=== PATIENT | female | born 1935 | race Caucasian/White ===

== ENCOUNTER 2021-06-07 19:08 | Observation (INO) | payer MEDICARE, SELFPAY ==
--- NOTE | ~2021-06-07 | XR_ITS ---
EXAMINATION: XR retrograde pyelo w/stent RT EXAM DATE: 06/08/2021 13:49 INDICATION: Stent placement right-sided. TECHNIQUE: Fluoroscopy used during XR retrograde pyelo w/stent RT performed by Dr. Sarbjit Davis , urologist. The radiologist Tyler Kate M.D. dictating this report of the image(s) available was no t present for the procedure. Total fluoroscopic time of 149 seconds. The DAP for this procedure was 09/11/2008 radcm2. A total of 41 images sent to PACS from the exam. Cine run(s) available for review . FINDINGS: Right ureter was cannulated and injected. There is moderate right-sided hydronephrosis wit h normal calibered ureter. A double-J ureteral stent was placed. Correlate with procedure note. IMPRESSION: Moderate right hydronephrosis. Stent in position. Reviewed, dictated and finalized at location A.
--- NOTE | ~2021-06-07 | CT_ITS ---
EXAMINATION: CT abdomen pelvis w con DATE: 06/07/2021 20:16 INDICATION: Right lower quadrant pain. History of kidney stones. TECHNIQUE: Computed tomography (CT) of the abdomen and pelvis was performed with 100 cc Omnipaque 350 intravenous contrast. The dose-length product was 468.73 mGy-cm. Automated exposure control and iter ative reconstruction technique were employed. COMPARISON: CT dated 06/08/2019 FINDINGS: Lung bases are unremarkable. No significant pleural or pericardial effusion. Heart size nor mal. Moderate size hiatal hernia. Moderate diffuse atherosclerosis. No aneurysm. No lymphadenopathy. Normal appendix. There is a 5 mm proximal right ureteral stone with mild hydronephrosis and urothelia l enhancement proximal to the stone, suspicious for ascending urinary tract infection. There is an ad ditional right renal stone which is nonobstructing measuring 6 mm. Fatty infiltration of the liver. Gallbladder is present. The spleen, pancreas, adrenal glands and lef t kidney are unremarkable. Bowel pattern is nonobstructive. Colonic diverticulosis without evidence f or diverticulitis. No free air or free fluid. Moderate lumbar spondylosis. IMPRESSION: 1. Obstructing proximal right ureteral stone measuring 5 mm at the L3-4 level with urothelial enhance ment proximal to the stone, suspicious for ascending urinary tract infection. 2: Nonobstructing 6 mm right renal stone. 3: Moderate sized hiatal hernia. Reviewed, dictated and finalized at location A. IMPRESSION: 1. Obstructing proximal right ureteral stone measuring 5 mm at the L3-4 level w ith urothelial enhancement proximal to the stone, suspicious for ascending urin mica tract infection. 2: Nonobstructing 6 mm right renal stone. 3: Moderate sized hiatal hernia.
--- NOTE | ~2021-06-07 | XR_ITS ---
EXAMINATION: XR abdomen/kub 1V INDICATION: Right ureteral stone TECHNIQUE: Supine views of the abdomen were obtained on 2 radiographs. COMPARISON: 06/07/2021 FINDINGS: A right internal ureteral stent has been placed in expected position. A 9 mm stone projects adjacent to the proximal aspect of the stent just below the right L4 transverse process. A second 7 mm stone projects in the right mid kidney. No additional urolithiasis is identified. The bowel gas pa ttern is normal. There is moderate osteoarthritis of the hips. The visualized lung bases are clear. IMPRESSION: 1. Right internal ureteral stent in expected position with 9 mm stone adjacent to the proximal stent. 2. 7 mm stone in the right kidney. Reviewed, dictated and finalized at location B.
--- NOTE | ~2021-06-07 | XR_ITS ---
EXAMINATION: XR abdomen/kub 1V DATE: 06/07/2021 21:47 INDICATION: Ureterolithiasis with lower right abdominal pain TECHNIQUE: A supine view of the abdomen on 2 radiographs was obtained. COMPARISON: CT dated 06/07/2021 FINDINGS: Excreted contrast is seen in the bilateral renal collecting systems and in the bladder from the recen t prior contrast enhanced CT of the abdomen and pelvis. There is mild right hydronephrosis with trans ition point at the proximal right ureter where an obstructing stone was seen on the prior CT. The sto ne is obscured by the adjacent contrast. Normal bowel gas pattern with moderate amount of colonic sto ol and no dilated bowel to suggest obstruction. Visualized mid to lower lungs are clear. Heart size i s within normal limits for AP technique. Moderate lower lumbar spondylosis. IMPRESSION: 1. Mild right hydronephrosis with transition point at the previously noted obstructing proximal right ureteral stone. Reviewed, dictated and finalized at location A. IMPRESSION: 1. Mild right hydronephrosis with transition point at the previously noted obst ructing proximal right ureteral stone.
[2021-06-07 19:10] VITALS: BP 169/72; PULSE 82; RESP 16; TEMP 36.3; O2SAT 98
--- NOTE | 2021-06-07 19:32 | ED.ABDPAIN ---
HPI - Abdominal Pain General Chief Complaint: Abdominal Pain Stated Complaint: right lower abdominal pain Time Seen by Provider: 06/07/21 19:23 Source: patient Mode of arrival: ambulatory Limitations: no limitations History of Present Illness HPI narrative: This is an 85-year-old female that presents to the emergency department for right-sided mid abdominal pain that started yesterday. Reports she experience the pain last night, but it had resolved before she went to sleep. Pain started again this afternoon. It has been constant and achy. Denies fever, nausea, vomiting, diarrhea, hematochezia, dysuria, hematuria. Related Data Home Medications Medication Instructions Recorded Confirmed Complete Multi 50+ 1 tablet PO DAILY 06/08/19 06/08/19 amlodipine 5 mg PO DAILY 06/08/19 06/08/19 ascorbic acid (vitamin C) [Vitamin 250 mg PO DAILY 06/08/19 06/08/19 C] aspirin 81 mg PO DAILY 06/08/19 06/08/19 calcium carbonate [Calcium 500] 500 mg PO DAILY 06/08/19 06/08/19 cholecalciferol (vitamin D3) 2,000 unit PO DAILY 06/08/19 06/08/19 [Vitamin D3] levothyroxine 50 mcg PO DAILY 06/08/19 06/08/19 losartan 100 mg PO DAILY 06/08/19 06/08/19 omeprazole 20 mg PO BID 06/08/19 06/08/19 simvastatin 20 mg PO HS 06/08/19 06/08/19 Allergies Allergy/AdvReac Type Severity Reaction Status Date / Time Sulfa (Sulfonamide Allergy Unknown Vomiting Verified 06/07/21 19:16 Antibiotics) Review of Systems Review of Systems: CONSTITUTIONAL: Denies fever GASTROINTESTINAL: Reports abdominal pain. Denies nausea, vomiting, or diarrhea. GENITOURINARY: Denies dysuria or hematuria. All systems reviewed & are unremarkable except as noted in HPI and below PMFSH Past Medical History Medical History (Updated 06/07/21 @ 22:05 by Ashley Winston PA-C) GERD (gastroesophageal reflux disease) Hyperlipidemia Hypertension Hypothyroid Surgical History Surgical History H/O colonoscopy History of thyroidectomy Family History Family History Sibling Hypertension Family history of diabetes mellitus in first degree relative Family history of coronary artery disease Mother Family history of congenital heart disease, Onset Age: 84 Patient's mother is Social History Social History (Updated 06/07/21 @ 19:35 by Ashley Winston PA-C) Smoking packs per day: 1 Smoking cigarettes per day: 20.0 Smoking status: Former smoker Second hand tobacco smoke exposure: No Alcohol intake: never Substance use: never Gender identity (if verbalized by the patient): Female Spiritual care concerns: No Agree to blood products: Yes Exam Narrative: GENERAL: Well-appearing, well-nourished, and in no acute distress. HEAD: Normocephalic, atraumatic. EYES: EOMI. CHEST: Clear to auscultation. No respiratory distress. No wheezes rales or rhonchi HEART: Regular rate and rhythm. No murmur heard. Normal peripheral pulses. ABDOMEN: Soft, nondistended, normal active bowel sounds. Tender to palpation in the right mid abdomen, without guarding. No CVA tenderness EXTREMITIES: Normal range of motion. No edema. SKIN: Warm, dry, no rash. NEURO: No focal deficits. Alert and oriented x3. PSYCH: Normal mood and affect Course Consultations Consultation #1: Spoke with Dr. Lemus about patient and workup. Recommends admission for further evaluation and treatment. Patient will be made NPO at midnight for likely procedure tomorrow Date: 06/07/21 Time: 21:08 Consultation #2: Spoke with Dr. Morales about patient and workup who accepts admission Date: 06/07/21 Time: 22:00 Vital Signs Vital signs: Vital Signs Temperature 97.4 F L 06/07/21 19:10 Pulse Rate 82 06/07/21 19:10 Respiratory Rate 16 06/07/21 19:10 Blood Pressure 169/72 H 06/07/21 19:10 Pulse Oximetry 98 06/07/21 19:10 Temperature 97.4 F L 06/07/21 19:
[2021-06-07 19:37] LABS: Basophils Absolute Auto 0.1 K/mm3 (0.0-0.1); Basophils Percent Auto 0.7 % (0.2-1.2); Eosinophils Absolute Auto 0.2 K/mm3 (0-0.3); Eosinophils Percent Auto 1.8 % (0-4.4); Hematocrit 42.2 % (37.0-47.0); Hemoglobin 14.6 g/dL (12.0-15.0); Immature Granulocyte Absolute 0.03 K/mm3 (0.00-0.031); Immature Granulocyte Percent A 0.3 % (0-0.5); Lymphocytes Absolute Auto 3.95 K/mm3 (0.9-3.2); Mean Corpuscular HGB Conc 34.6 g/dl (32-36); Mean Corpuscular Hemoglobin 31.3 pg (26-34); Mean Corpuscular Volume 90.6 fl (80-100); Mean Platelet Volume 10.7 fl (7.4-10.4); Monocytes Absolute Auto 1.3 K/mm3 (0.1-0.6); Monocytes Percent Auto 11.4 % (2.6-8.5); Neutrophils Absolute Auto 5.8 K/mm3 (1.3-6.7); Neutrophils Percent Auto 50.8 % (45.5-73.1); Platelet Count Result 227 k/mm3 (150-375); Red Blood Count 4.66 M/mm3 (4.2-5.4); Red Cell Distribution Width 13.5 % (11.5-14.5); White Blood Count 11.3 K/mm3 (4.5-10.0)
[2021-06-07 19:54] LABS: Alanine Aminotransferase 22 U/L (4-35); Albumin Level 4.8 g/dL (3.5-5.1); Alkaline Phosphatase 70 U/L (38-126); Anion Gap 15 mmol/L (8-16); Aspartate Amino Transferase 25 U/L (14-36); Bilirubin,Total 0.6 mg/dL (0.2-1.3); Blood Urea Nitrogen 21 mg/dL (7-17); Carbon Dioxide 22 mmol/L (22-30); Chloride 103 mmol/L (98-107); Estimated CRCL calculation 35 ml/min; Estimated Glomerular Filt Rate 53; Glucose 136 mg/dL (65-110); Lipase 154 U/L (23-300); Potassium 3.9 mmol/L (3.4-5.0); Sodium 140 mmol/L (137-145)
[2021-06-07] MEDS: SODIUM CHLORIDE 0.9% IV 500 ML 999 ML IV CONT ×2 (20:27→21:47)
[2021-06-07] MEDS: ONDANSETRON INJ 4 MG/2 ML VIAL IV PUSH (20:27)
[2021-06-07] MEDS: MORPHINE SULFATE (*CRX) 2 MG/ML INJ IV PUSH (20:28)
[2021-06-07 20:40] LABS: Add Urine Microscopic? YES; Appearance Urine Clear (Clear); Bilirubin Urine Negative (Negative); Color Urine Yellow (Yellow); Glucose Urine UA Negative (Negative); Ketones Urine Negative (Negative); Leukocyte Esterase Ur 1+ LEU/UL (Negative); Mucus Urine Rare /lpf; Nitrate Urine Negative (Negative); Protein Urine Negative (Negative); RBC Urine 21-50 /hpf (0-2); Squamous Epithelial Cell Urine Rare /hpf (Few); Urobilinogen Urine Negative mg/dL (<2.0); WBC Urine 16-20 /hpf
[2021-06-07 20:41] LABS: Blood Urine Negative (Negative)
[2021-06-07 21:07] LABS: CRP < 0.5 mg/dL (<1.0)
--- NOTE | 2021-06-07 21:30 | PM.IMHP ---
H&P: HPI History of Present Illness Date/Time: 06/07/21 21:30 Chief Complaint: Right flank pain Narrative: This is an 85-year-old female with past medical history significant for urolithiasis, gastric esophageal reflux disease, dyslipidemia, hypertension. Patient presented to the emergency room due to flank pain for the last day or so, she denies any pain or burning with urination, no fevers,no rigors, no chills, no nausea ,no vomiting, no diarrhea ,no abdominal distension, no cough ,no sputum production, no shortness of breath. States that her appetite has been good. Pain is localized to the right side she rates it at a 3/10 at the time of my visit in intensity, is nonradiating initially started at the back and later on localized to the front, she received pain medication in the emergency room which helped with the pain. Preliminary workup was significant for urinalysis with numerous RBCs and WBCs a CT of abdomen and pelvis was significant for obstructing proximal right ureteral stone measuring 5 mm at the L3-4 level with urothelial enhancement proximal to the stone, suspicious for ascending urinary tract infection,nonobstructing 6 mm right renal stone,moderate sized hiatal hernia. Decision has been made to place the patient in observation for further assessment management and treatment. Review of Systems Review of Systems: Right flank pain Constitutional: Constitutional: Denies chills, Denies fatigue, Denies fever(s), Denies malaise, Denies night sweats, Denies poor appetite and Denies weakness Eyes: Eyes: Denies change in vision ENT: Denies dysphagia, Denies vertigo, Denies dizziness, Denies nasal congestion, Denies nasal discharge, Denies nasal obstruction and Denies odynophagia Cardiovascular: Cardiovascular: Denies irregular heart rhythm, Denies lightheadedness, Denies radiating jaw, neck or arm pain, Denies palpitations, Denies dyspnea, Denies dyspnea on exertion and Denies orthopnea Respiratory: Respiratory: Denies cough and Denies dyspnea Gastrointestinal: Gastrointestinal: Reports abdominal pain (Right flank), Denies dyspepsia, Denies heartburn, Denies nausea and Denies vomiting Genitourinary: Genitourinary: Reports flank pain (Right-sided) Musculoskeletal: Musculoskeletal: Denies arthralgias and Denies joint swelling Integumentary/Breasts: Skin/Breast: Denies rash Neurologic: Denies vertigo, Denies dizziness, Denies syncope, Denies focal weakness and Denies Sensory deficit (Neuro) Psychiatric: Psychiatric: Reports no additional psychiatric complaints and Reports as per HPI Endocrine: Endocrine: Reports no additional endocrine complaints and Reports as per HPI Hematologic/Lymphatic: Hematologic/Lymphatic: Reports no additional hematologic/lymphatic complaints and Reports as per HPI Allergic/Immunologic: Allergic/Immunologic: Reports no additional allergic/immunologic complaints and Reports as per HPI [facility] Past Medical History Medical History (Updated 06/08/21 @ 02:28 by Dionte Morales MD) GERD (gastroesophageal reflux disease) Hyperlipidemia Hypertension Hypothyroid Surgical History Surgical History H/O colonoscopy History of thyroidectomy Family History Family History Sibling Hypertension Family history of diabetes mellitus in first degree relative Family history of coronary artery disease Mother Family history of congenital heart disease, Onset Age: 84 Patient's mother is Social History Social History (Updated 06/07/21 @ 19:35 by Ashley Winston PA-C) Smoking packs per day: 1 Smoking cigarettes per day: 20.0 Smoking status: Former smoker Second hand tobacco smoke exposure: No Alcohol intake: never Substance use: never Gender identity (if verbalized by the patient): Female Spiritual care concerns: No Agree to blood products: Yes Meds
[2021-06-07 21:40] VITALS: BP 152/57; PULSE 68; RESP 16; O2SAT 98
[2021-06-07 23:06] VITALS: BP 157/56; PULSE 67; RESP 16; O2SAT 96
[2021-06-07 23:10] VITALS: BP 164/65; PULSE 66; RESP 16; TEMP 36.8; O2SAT 99; BMI 26.4
--- NOTE | 2021-06-07 23:41 | PC.NURSE ---
This patient, Charla Fraire, was admitted to Medical Room 348-01. Patient/family oriented to hospital policies and general routines including ID bracelet, bed and alarms, visiting hours, pain management, procedures, bathroom and other care routines, personal items, smoking policy, room service/diet, and visiting hours. Information on how to activate the Rapid Response Team has been discussed. Patient/Family are encouraged to report perceived risks to care and to ask questions if they do not understand what they are told or what they should do.
[2021-06-08] VITALS (9 sets, daily range): BP systolic 140–163; BP diastolic 46–65; PULSE 63–70; RESP 14–18; TEMP 35.7–37.1; O2SAT 92–99
[2021-06-08] MEDS: LEVOTHYROXINE SODIUM 50 MCG TABLET PO (05:59)
--- NOTE | 2021-06-08 06:14 | WPDURCON ---
Assessment and Plan Assessment and plan (1) Ureterolithiasis: Code(s): N20.1 - Calculus of ureter Status: Acute (2) Urinary tract infection: Qualifiers: Urinary tract infection type: acute pyelonephritis Qualified Code(s): N10 - Acute pyelonephritis Code(s): N39.0 - Urinary tract infection, site not specified Status: Acute Assessment and Plan: Cystoscopy right ureteral stent placement today. ESWL in the future Urology Consult Note HPI Date Seen: 06/08/21 Requesting Physician: Dionte Morales MD Primary Care Provider: PHYSICIAN NOT ON STAFF Consult Narrative Narrative: Charla Fraire is a 85 year old female presents to the ER with a 24-36 hour history of right flank pain. This turns out to be this patient's 4th episode of urolithiasis. In the past she has passed 1 spontaneously, required endoscopic extraction of 1 and required lithotripsy of 1. On this occasion she denies fevers chills or significant ureteral voiding but her urine does appear possibly infected. Imaging reveals a 5 mm obstructing right mid ureteral calculus and a 6 mm nonobstructing right renal calculus. Review of Systems Cardiovascular: Cardiovascular: Denies chest pain, Denies lightheadedness, Denies palpitations and Denies dyspnea Respiratory: Respiratory: Denies dyspnea Gastrointestinal: Gastrointestinal: Denies diarrhea, Denies nausea and Denies vomiting Genitourinary: Genitourinary: Denies hematuria and Denies dysuria Endocrine: Endocrine: Denies palpitations PMFSH Past Medical History Medical History GERD (gastroesophageal reflux disease) Hyperlipidemia Hypertension Hypothyroid Surgical History Surgical History H/O colonoscopy History of thyroidectomy Family History Family History Sibling Hypertension Family history of diabetes mellitus in first degree relative Family history of coronary artery disease Mother Family history of congenital heart disease, Onset Age: 84 Patient's mother is Social History Social History Smoking packs per day: 1 Smoking cigarettes per day: 20.0 Smoking status: Former smoker Second hand tobacco smoke exposure: No Alcohol intake: never Substance use: never Gender identity (if verbalized by the patient): Female Spiritual care concerns: No Agree to blood products: Yes Meds Home Medications and Allergies Home Medications Medication Instructions Recorded Confirmed Type Complete Multi 50+ 1 tablet PO DAILY 06/08/19 06/07/21 History amlodipine 5 mg PO DAILY 06/08/19 06/07/21 History aspirin 81 mg PO DAILY 06/08/19 06/07/21 History calcium carbonate [Calcium 500] 500 mg PO DAILY 06/08/19 06/07/21 History levothyroxine 50 mcg PO DAILY 06/08/19 06/07/21 History losartan 100 mg PO DAILY 06/08/19 06/07/21 History omeprazole 20 mg PO BID 06/08/19 06/07/21 History simvastatin 20 mg PO HS 06/08/19 06/07/21 History meloxicam 15 mg PO DAILY 06/07/21 06/07/21 History Allergies Allergy/AdvReac Type Severity Reaction Status Date / Time Sulfa (Sulfonamide Allergy Unknown Vomiting Verified 06/07/21 19:16 Antibiotics) Vital Signs Vital Signs - 24 hr 06/07/21 19:10 06/07/21 21:40 06/07/21 23:06 Temperature 97.4 F L Pulse Rate 82 68 67 Respiratory Rate 16 16 16 Blood Pressure 169/72 H 152/57 H 157/56 H Pulse Oximetry 98 98 96 06/07/21 23:10 06/08/21 06:00 Temperature 98.3 F 98.8 F Pulse Rate 66 69 Respiratory Rate 16 16 Blood Pressure 164/65 H 144/52 H Pulse Oximetry 99 99 Exam Const: General: no acute distress Resp: Effort & Inspection: normal respiratory effort GI: Inspection: non-distended GI Palp: No abdominal tenderness and No Guarding due to palpati
[2021-06-08] MEDS: PANTOPRAZOLE 40 MG TABLET PO (09:29)
[2021-06-08] MEDS: amLODIPine BESYLATE 5 MG TABLET PO (09:29)
[2021-06-08] MEDS: OPTI-GEN TAB 1 TABLET PO (09:29)
[2021-06-08] MEDS: LOSARTAN POTASSIUM 100 MG TABLET PO (09:29)
[2021-06-08] MEDS: CALCIUM CARBONATE (OSCAL) 500 MG TABLET PO (09:30)
--- NOTE | 2021-06-08 11:13 | PC.NURSE ---
To OR per bed, IV right wrist. Report given to Peter WHARTON.
--- NOTE | 2021-06-08 12:40 | WPDANESEPPF ---
Anes - Initial Pre Proc Eval Procedure: Operation Date: 06/08/21 12:30 Proposed Procedures p Cystoscopy,Rigth Stent Placement - Sarbjit Davis MD Date/Time: 06/08/21 12:40 Surgeon: Renae Holguin PA-C Pre Op Diagnosis: Ureterolithiasis, Urinary Tract Infection Patient Data Age: 85 Gender: F Height: 1.68 m Weight: 74.4 kg Last Vital Signs Temp 36.3 C L 06/08/21 11:42 Pulse 63 06/08/21 11:42 Resp 14 06/08/21 11:42 BP 143/46 H 06/08/21 11:42 Pulse Ox 99 06/08/21 11:42 Allergies Allergy/AdvReac Type Severity Reaction Status Date / Time Sulfa (Sulfonamide Allergy Unknown Vomiting Verified 06/07/21 19:16 Antibiotics) Home Medications Medication Instructions Recorded Confirmed Type Complete Multi 50+ 1 tablet PO DAILY 06/08/19 06/07/21 History amlodipine 5 mg PO DAILY 06/08/19 06/07/21 History aspirin 81 mg PO DAILY 06/08/19 06/07/21 History calcium carbonate [Calcium 500] 500 mg PO DAILY 06/08/19 06/07/21 History levothyroxine 50 mcg PO DAILY 06/08/19 06/07/21 History losartan 100 mg PO DAILY 06/08/19 06/07/21 History omeprazole 20 mg PO BID 06/08/19 06/07/21 History simvastatin 20 mg PO HS 06/08/19 06/07/21 History meloxicam 15 mg PO DAILY 06/07/21 06/07/21 History Laboratory Tests 06/07/21 06/07/21 06/07/21 19:33 19:33 20:24 WBC 11.3 K/mm3 H K/mm3 (4.5-10.0) RBC 4.66 M/mm3 M/mm3 (4.2-5.4) Hgb 14.6 g/dL g/dL (12.0-15.0) Hct 42.2 % % (37.0-47.0) MCV 90.6 fl fl (80-100) MCH 31.3 pg pg (26-34) MCHC 34.6 g/dl g/dl (32-36) RDW 13.5 % % (11.5-14.5) Plt Count 227 k/mm3 k/mm3 (150-375) MPV 10.7 fl H fl (7.4-10.4) Immature Gran % (Auto) 0.3 % % (0-0.5) Neut % (Auto) 50.8 % % (45.5-73.1) Lymph % (Auto) 35.0 % % (18.3-44.2) [place] % (Auto) 11.4 % H % (2.6-8.5) Eos % (Auto) 1.8 % % (0-4.4) Baso % (Auto) 0.7 % % (0.2-1.2) Lymph # (Auto) 3.95 K/mm3 H K/mm3 (0.9-3.2) [place] # (Auto) 1.3 K/mm3 H K/mm3 (0.1-0.6) Eos # (Auto) 0.2 K/mm3 K/mm3 (0-0.3) Baso # (Auto) 0.1 K/mm3 K/mm3 (0.0-0.1) Abs Immat Gran (auto) 0.03 K/mm3 K/mm3 (0.00-0.031) Absolute Neuts (auto) 5.8 K/mm3 K/mm3 (1.3-6.7) Absolute Nucleated RBC 0.0 K/mm3 K/mm3 (0.0-0.012) Nucleated RBC % 0.0 % % (0.0-0.2) Sodium 140 mmol/L mmol/L (137-145) Potassium 3.9 mmol/L mmol/L (3.4-5.0) Chloride 103 mmol/L mmol/L (98-107) Carbon Dioxide 22 mmol/L mmol/L (22-30) Anion Gap 15 mmol/L mmol/L (8-16) BUN 21 mg/dL H D mg/dL (7-17) Creatinine 1.00 mg/dL mg/dL (0.7-1.0) Estim Creat Clear Calc 35 ml/min ml/min Estimated GFR 53 L (59 - ) Glucose 136 mg/dL H mg/dL (65-110) Lactic Acid Calcium 10.0 mg/dL mg/dL (8.4-10.2) Total Bilirubin 0.6 mg/dL mg/dL (0.2-1.3) AST 25 U/L U/L (14-36) ALT 22 U/L U/L (4-35) Alkaline Phosphatase 70 U/L U/L (38-126) C-Reactive Protein Total Protein 8.0 g/dL g/dL (6.3-8.2) Albumin 4.8 g/dL g/dL (3.5-5.1) Lipase 154 U/L U/L (23-300) Urine Color Yellow (Yellow) Urine Appearance Clear (Clear) Urine pH 6.0 (5.0-9.0) Ur Specific [place] 1.020 (1.001-1.035) Urine Protein Negative mg/dL mg/dL (Negative) Urine Glucose (UA) Negative mg/dL mg/dL (Negative) Urine Ketones Negative mg/dL mg/dL (Negative) Ur Blood (Man) Negative (Negative) Urine Nitrate Negative (Negative) Urine Bilirubin Negative (Negative) Urine Urobilinogen Negative mg/dL mg/dL (<2.0) Leukocyte Esterase Rfl 1+
[2021-06-08] MEDS: LACTATED RINGERS 1,000 ML 30 ML IV CONT (13:00)
--- NOTE | 2021-06-08 13:01 | WPDHPUPDATE1 ---
History and Physical Update Update Date/Time: 06/08/21 13:01 History and Physical has been reviewed, including an updated exam of the patient. There are NO changes in the patient's condition. Risks, benefits, and alternatives have been discussed and questions answered. Patient agrees to proceed with procedure.
--- NOTE | 2021-06-08 13:46 | W.PM.PROC2 ---
Procedure Note - Detailed Date of Procedure 06/08/21 Pre-op Diagnosis Ureterolithiasis, Urinary Tract Infection Post-op Diagnosis same Procedure Performed Cystoscopy, right retrograde pyelography, right ureteral stent placement Surgeon Sarbjit Davis MD Anesthesia general Description of Procedure Patient is brought to the operative suite where she was prepped draped in routine sterile fashion while in dorsal lithotomy position after the uneventful induction of a general anesthetic. Cystoscopy is undertaken with a 19 F rigid cystoscope. Bladder neck and urethra endoscopically normal. Bladder mucosa is normal without hyperemia. There was no intravesical foreign body or neoplasm. She has a single orthotopic ureteral orifice bilaterally. Right retrograde pyelogram was obtained with an angiographic catheter to outline the anatomy the collecting system. A 4.8 F double-J ureteral stent is positioned with the proximal coil in the renal pelvis and distal coil in the bladder. Urine Output 350 Drains Yes Packing No Pathology none sent Complications No immediate complications Condition stable Disposition PACU
--- NOTE | 2021-06-08 14:47 | PC.NURSE ---
Returned from OR per Bed. Report received from Stacie .
--- NOTE | 2021-06-08 15:16 | PM.IMPN ---
Progress Note: A&P Assessment and Plan (1) Acute right flank pain: Code(s): R10.9 - Unspecified abdominal pain Status: Acute Assessment and Plan: CT showed kidney stone Urology evaluated and taking for Cysto and stent placement Pending testing and input from Urology. Stable at this time. (2) Ureterolithiasis: Code(s): N20.1 - Calculus of ureter Status: Acute Assessment and Plan: Urology has been consulted Currently receiving IV fluids (3) Urinary tract infection: Qualifiers: Urinary tract infection type: acute pyelonephritis Qualified Code(s): N10 - Acute pyelonephritis Code(s): N39.0 - Urinary tract infection, site not specified Status: Acute Assessment and Plan: Patient was started on antibiotics Rocephin #1 Await cultures (4) Hypertension: Code(s): I10 - Essential (primary) hypertension Status: Chronic Assessment and Plan: BP slightly elevated 144/52. Continue home meds Continue to monitor (5) Hyperlipidemia: Code(s): E78.5 - Hyperlipidemia, unspecified Status: Chronic Assessment and Plan: Continue statin Follow-up in outpatient setting Time Spent With Patient Time with patient: 25 - 35 minutes Subjective Date/time seen: 06/08/21 15:16 Interval history: Date of Service 06/08/21: She denies any pain at this time, just intermittent to left side. Denies urinary complaints, chest pain, SOB, cough, fever, chills, nausea, vomiting, leg swelling, calf pain or any other symptoms at this time. Review of Systems Review of Systems: All systems reviewed & are unremarkable except as noted in HPI and below Exam Narrative: General: 85-year-old woman sitting up in bed watching TV. Appears comfortable. In no acute distress. Skin: No jaundice or cyanosis. Good skin turgor. Neck: Full range of motion. Supple. Respiratory: Lungs are clear to auscultation bilaterally. No bony chest wall tenderness. Cardiovascular: The heart has a regular rate and rhythm without murmur. Lower extremities: No lower extremity edema. Distal pulses are easily palpated. No calf tenderness to palpation. Gastrointestinal: Mild TTP Right lateral abdomen. The abdomen is otherwise soft, nondistended with active bowel sounds. Psychiatric: Lucid and oriented. Memory intact. Neurologic: No focal deficits. Speech is clear. No facial drooping. Objective Data Vital Signs Vital Signs: Vital Signs - 24 hr 06/07/21 19:10 06/07/21 21:40 06/07/21 23:06 Temperature 97.4 F L Pulse Rate 82 68 67 Respiratory Rate 16 16 16 Blood Pressure 169/72 H 152/57 H 157/56 H Pulse Oximetry 98 98 96 06/07/21 23:10 06/08/21 06:00 06/08/21 11:42 Temperature 98.3 F 98.8 F 97.4 F L Pulse Rate 66 69 63 Respiratory Rate 16 16 14 Blood Pressure 164/65 H 144/52 H 143/46 H Pulse Oximetry 99 99 99 06/08/21 13:48 06/08/21 14:00 06/08/21 14:15 Temperature 97.4 F L Pulse Rate 70 65 67 Respiratory Rate 14 15 14 Blood Pressure 143/46 H 147/65 H 146/57 H Pulse Oximetry 98 99 96 06/08/21 14:30 06/08/21 14:51 Temperature 96.3 F L Pulse Rate 68 65 Respiratory Rate 17 18 Blood Pressure 146/51 H 140/50 L Pulse Oximetry 92 97 Intake/Output Intake/Output: Intake & Output 06/05/21 06/06/21 06/07/21 06/08/21 23:59 23:59 23:59 23:59 Intake Total 1150 50 Output Total 950 Balance 1150 -900 Meds/Results Medications: Active Medications Generic Name Dose Route Start Last Admin Trade Name Kiya PRN Reason Stop Dose Admin Amlodipine Besylate 5 mg 06/08/21 09:00 06/08/21 09:29 Amlodipine Besylate 5 Mg Tablet PO 5 mg DAILY [facility] Administration Aspirin 81 mg 06/08/21 08:00 06/08/21 09:13 Aspirin 81 Mg Chewable Tablet PO Not Given DAILY@0800 [facility] Calcium Carbonate 500 mg 06/08/21 09:00 06/08/21 09:30 Calcium Carbonate (Oscal) 500 Mg Tablet PO 500 mg DAILY [facility] Administration Fent
--- NOTE | 2021-06-08 15:20 | PM.DS ---
DS: Admitting Diagnosis Discharge Date 06/08/21 Admitting Diagnosis Abd pain DS: Discharge Diagnosis Discharge Diagnosis (1) Acute right flank pain: Code(s): R10.9 - Unspecified abdominal pain Status: Acute Assessment and Plan: The patient is a 85 year old woman with a history of kidney stones, HTN, hypothyroidism, HLD, who presented to the ER with right side pain. She denies similar symptoms to prior kidney stone, without N/V. Initial labs with normal CBC with differential, coag panel, and CMP. CT abd/pelvis showed obstructing proximal right ureteral stone measuring 5 mm at the L3-4 level with urothelial enhancement proximal to the stone, suspicious for ascending urinary tract infection. Nonobstructing 6 mm right renal stone. She was admitted in the hospital with IV fluids, pain control and Urology consult. She was seen by Dr. Davis who evaluated the patient and took her for a Cystoscopy, right retrograde pyelography, right ureteral stent placement. She is feeling well at this time. Eating and drinking without any issues and plans for discharge home. She will be discharged on PO Cefdinir for possible UTI and pending urine culture results along with probiotic to prevent diarrhea associated with abx use. Follow up with PCP and Urology. Return to ER warnings given. She understands and agrees with the plan. All questions answered. (2) Ureterolithiasis: Code(s): N20.1 - Calculus of ureter Status: Acute Assessment and Plan: (3) Urinary tract infection: Qualifiers: Urinary tract infection type: acute pyelonephritis Qualified Code(s): N10 - Acute pyelonephritis Code(s): N39.0 - Urinary tract infection, site not specified Status: Acute Assessment and Plan: (4) Hypertension: Code(s): I10 - Essential (primary) hypertension Status: Chronic Assessment and Plan: (5) Hyperlipidemia: Code(s): E78.5 - Hyperlipidemia, unspecified Status: Chronic Assessment and Plan: DS: Summary Hospital Course Hospital Course: See above Status at Discharge Cognitive/behavioral status at discharge: Stable, improved. Time Spent with Patient Time attestation: Total time spent providing and/or coordinating discharge services: 42 Time spent: Greater than 30 minutes Exam Narrative: General: 85-year-old woman sitting up in bed watching TV. Appears comfortable. In no acute distress. Skin: No jaundice or cyanosis. Good skin turgor. Neck: Full range of motion. Supple. Respiratory: Lungs are clear to auscultation bilaterally. No bony chest wall tenderness. Cardiovascular: The heart has a regular rate and rhythm without murmur. Lower extremities: No lower extremity edema. Distal pulses are easily palpated. No calf tenderness to palpation. Gastrointestinal: Mild TTP Right lateral abdomen. The abdomen is otherwise soft, nondistended with active bowel sounds. Psychiatric: Lucid and oriented. Memory intact. Neurologic: No focal deficits. Speech is clear. No facial drooping. DS: Data Data Completed and Pending Labs on day of discharge: Labs from last 24 hours 06/07/21 06/07/21 06/07/21 20:43 20:43 20:24 WBC RBC Hgb Hct MCV MCH MCHC RDW Plt Count MPV Immature Gran % (Auto) Neut % (Auto) Lymph % (Auto) [place] % (Auto) Eos % (Auto) Baso % (Auto) Lymph # (Auto) [place] # (Auto) Eos # (Auto) Baso # (Auto) Abs Immat Gran (auto) Absolute Neuts (auto) Absolute Nucleated RBC Nucleated RBC % Sodium Potassium Chloride Carbon Dioxide Anion Gap BUN Creatinine Estim Creat Clear Calc Estimated GFR Glucose Lactic Acid 2.0 Calcium Total Bilirubin AST ALT Alkaline Phosphatase C-Reactive Protein < 0.5 Total Protein Albumin Lipase Urine Color Yellow Urine Appearance Clear Urine
--- NOTE | 2021-06-09 09:19 | PC.NURSE ---
Urine cx shows mixed sancho suggesting contamination.
== END 2021-06-08 17:37 | disposition home or self-care (01) ==
LOC: ANHED 22:05 → ANH3MED 22:17
PROVIDERS: Physician Assistant; Urology; Admitting Provider Internal Medicine; Emergency Provider Emergency Medicine; Visit Provider Internal Medicine
PROC: (CPT 52352; principal; 2021-06-08 12:30)
DX: N20.1 Calculus of ureter (principal); N10 Acute pyelonephritis; R10.9 Unspecified abdominal pain; E03.9 Hypothyroidism, unspecified; E78.5 Hyperlipidemia, unspecified; I10 Essential (primary) hypertension; K21.9 Gastro-esophageal reflux disease without esophagitis; N39.0 Urinary tract infection, site not specified; Z87.891 Personal history of nicotine dependence
CPT/HCPCS: 52332; 36415; 74018; 74177; 74420; 80053; 81001; 83605; 83690; 85025; 86140; 87086; 87088; 96365; 96367; 96375; 99285; A9270; C1769; C1887; C2617; G0378; J0131; J0696; J1100; J2270; J2405; J2704; J3010; J7040; J7120; Q9966; Q9967

== ENCOUNTER 2021-06-09 13:17 | Emergency (ER) | payer MEDICARE, SELFPAY ==
--- NOTE | ~2021-06-09 | CT_ITS ---
EXAMINATION: CT abdomen pelvis w con DATE: 06/09/2021 16:54 INDICATION: Right-sided abdominal pain, leukocytosis. Urinary retention since 0500 hours today. Right internal urinary stent placement yesterday. TECHNIQUE: Computed tomography (CT) of the abdomen and pelvis was performed with 100 cc Omnipaque 350 intravenous contrast. Automated exposure control and iterative reconstruction technique were employe d. Exam dose: 346.25 mGy-cm total exam DLP. COMPARISON: 06/08/2021 KUB 06/07/[address] abdomen pelvis FINDINGS: Right fat-containing foramen of Bochdalek hernia. There is minimal atelectasis at the lung bases. Normal heart size. No pericardial or pleural effusion. Small sliding hiatal hernia. Diffuse hepatic steatosis. Small left hepatic cyst. No bile duct or pancreatic duct dilatation. No pa ncreatic mass lesion or calcification. Normal splenic size. The gallbladder is present. No gallbladder wall thickening or pericholecystic fluid or fat stranding. Adrenal glands are unremarkable. Approximately 5 x 7 mm right renal pelvic calculus with attenuation of 1435 Hounsfield units. Approximately 2.7 x 5 mm calculus is noted at the proximal right ureter adjacent to the stent. There is a right internal urinary stent, the proximal pigtail in the right renal pelvis, the distal p igtail situated at the distal ureter and ureterovesical junction area, urinary bladder is largely heidi cuated, with a small amount of air in the lumen. There is extensive atherosclerotic calcification of the abdominal aorta and at the origins of the flavia al arteries. No abdominal aortic aneurysm. No intraperitoneal or retroperitoneal or pelvic mass lesio n or adenopathy or ascites. Normal appendix. There is diverticulosis of the colon; no CT evidence of diverticulitis. No bowel obstruction, bowel w all thickening, pneumatosis or intraperitoneal free air. Very small fat-containing umbilical hernia. Status post hysterectomy. Moderately severe degenerative disc disease at L4-5 and L5-S1. No suspicious osteolytic or osteoblastic lesions are noted. IMPRESSION: Right internal urinary stent; distal pigtail is in the distal right ureter and ureterove sical junction. Right 5 x 7 mm pelvic calculus 2.7 x 5 mm proximal right ureteral calculus Reviewed, dictated and finalized at [facility]. Reviewed, dictated and finalized at [facility]. IMPRESSION: Right internal urinary stent; distal pigtail is in the distal righ t ureter and ureterovesical junction. Right 5 x 7 mm pelvic calculus 2.7 x 5 mm proximal right ureteral calculus
[2021-06-09 14:01] VITALS: BP 129/69; PULSE 77; RESP 14; TEMP 37.2; O2SAT 100
--- NOTE | 2021-06-09 14:18 | ED.FEMALEGU ---
HPI - Female Genitourinary General Chief complaint: Urogenital-Female Stated complaint: R URETHRAL STENT UNABLE TO URINATE Time Seen by Provider: 06/09/21 13:44 Source: patient Mode of arrival: ambulatory Limitations: no limitations History of Present Illness HPI Narrative: This is a 85 year old female that presents to the ER for urinary retention. She was seen here in the ER at [place] by myself 2 days ago. Was found to have a kidney stone. Had a right ureteral stent placed. Was to follow-up outpatient for a lithotripsy. Reports she has not been able to urinate since 5 this morning. Reports feeling of fullness in her bladder and discomfort. Denies fever or vomiting. Related Data Home Medications Medication Instructions Recorded Confirmed Complete Multi 50+ 1 tablet PO DAILY 06/08/19 06/09/21 amlodipine 5 mg PO BID 06/08/19 06/09/21 calcium carbonate [Calcium 500] 500 mg PO DAILY 06/08/19 06/09/21 levothyroxine 50 mcg PO QAM 06/08/19 06/09/21 losartan 100 mg PO QAM 06/08/19 06/09/21 simvastatin 20 mg PO HS 06/08/19 06/09/21 meloxicam 15 mg PO DAILY PRN 06/07/21 06/09/21 Saccharomyces boulardii [Florastor] 250 mg PO DAILY 06/09/21 06/09/21 aspirin [Aspir-81] 81 mg PO DAILY 06/09/21 06/09/21 biotin 2,000 mcg PO DAILY 06/09/21 06/09/21 coenzyme Q10 [CoQ-10] 100 mg PO DAILY 06/09/21 06/09/21 famotidine 20 mg PO HS 06/09/21 06/09/21 Allergies Allergy/AdvReac Type Severity Reaction Status Date / Time Sulfa (Sulfonamide Allergy Unknown Vomiting, Verified 06/09/21 14:06 Antibiotics) DIARRHEA Review of Systems Review of Systems: CONSTITUTIONAL: Denies fever GASTROINTESTINAL: Reports bladder pain. Denies nausea, vomiting GENITOURINARY: Reports dysuria and hematuria. All systems reviewed & are unremarkable except as noted in HPI and below PMFSH Past Medical History Medical History (Updated 06/09/21 @ 18:40 by Ashley Winston PA-C) GERD (gastroesophageal reflux disease) Hyperlipidemia Hypertension Hypothyroid Surgical History Surgical History H/O colonoscopy History of thyroidectomy Family History Family History Sibling Hypertension Family history of diabetes mellitus in first degree relative Family history of coronary artery disease Mother Family history of congenital heart disease, Onset Age: 84 Patient's mother is Social History Social History Smoking packs per day: 1 Smoking cigarettes per day: 20.0 Smoking status: Former smoker Tobacco type: cigarettes Second hand tobacco smoke exposure: No Smoking end date: 02/06/1960 Additional smoking assessment comments: 1 PACK/WEEK X 10 YRS Alcohol intake: never Substance use: never Additional living arrangements comments: [place] Gender identity (if verbalized by the patient): Female Spiritual care concerns: No Agree to blood products: Yes Exam Narrative: GENERAL: Well-appearing, well-nourished, and in no acute distress. HEAD: Normocephalic, atraumatic. EYES: EOMI. CHEST: Clear to auscultation. No respiratory distress. No wheezes rales or rhonchi HEART: Regular rate and rhythm. No murmur heard. Normal peripheral pulses. ABDOMEN: Soft, nontender, normal active bowel sounds. Bladder feels distended EXTREMITIES: Normal range of motion. No edema. SKIN: Warm, dry, no rash. NEURO: No focal deficits. Alert and oriented x3. PSYCH: Normal mood and affect Course Consultations Consultation #1: Spoke with Dr. Davis about patient and workup. Would like Tamsulosin added on. Will follow up with patient on Tuesday Date: 06/09/21 Time: 18:43 Vital Signs Vital signs: Vital Signs Temperature 98.9 F 06/09/21 14:01 Pulse Rate 77 06/09/21 14:01 Respiratory Rate 14 06/09/21 14:01 Blood Pressure 129/69 06/09/21 14:01 Pulse Oximetry 100 06/09
[2021-06-09 14:50] LABS: Basophils Percent Auto 0.2 % (0.2-1.2); Eosinophils Absolute Auto 0.1 K/mm3 (0-0.3); Eosinophils Percent Auto 0.4 % (0-4.4); Hematocrit 42.2 % (37.0-47.0); Hemoglobin 14.2 g/dL (12.0-15.0); Immature Granulocyte Absolute 0.06 K/mm3 (0.00-0.031); Immature Granulocyte Percent A 0.4 % (0-0.5); Lymphocytes Absolute Auto 4.02 K/mm3 (0.9-3.2); Lymphocytes Percent Auto 24.5 % (18.3-44.2); Mean Corpuscular HGB Conc 33.6 g/dl (32-36); Mean Corpuscular Hemoglobin 30.7 pg (26-34); Mean Corpuscular Volume 91.3 fl (80-100); Mean Platelet Volume 10.6 fl (7.4-10.4); Monocytes Absolute Auto 1.6 K/mm3 (0.1-0.6); Neutrophils Absolute Auto 10.6 K/mm3 (1.3-6.7); Neutrophils Percent Auto 64.5 % (45.5-73.1); Platelet Count Result 229 k/mm3 (150-375); Red Blood Count 4.62 M/mm3 (4.2-5.4); Red Cell Distribution Width 13.6 % (11.5-14.5); White Blood Count 16.4 K/mm3 (4.5-10.0)
[2021-06-09 14:56] LABS: Add Urine Microscopic? YES; Appearance Urine Cloudy (Clear); Bacteria Urine Trace /hpf; Bilirubin Urine Negative (Negative); Blood Urine 3+ (Negative); Color Urine Yellow (Yellow); Glucose Urine UA Negative (Negative); Ketones Urine Negative (Negative); Leukocyte Esterase Ur 2+ LEU/UL (Negative); Mucus Urine Rare /lpf; Nitrate Urine Negative (Negative); Protein Urine 2+ mg/dL (Negative); RBC Urine >75 /hpf (0-2); Specific Grav Ur 1.012 (1.001-1.035); Urobilinogen Urine Negative mg/dL (<2.0); WBC Urine 31-50 /hpf
[2021-06-09 15:09] LABS: Anion Gap 13 mmol/L (8-16); Blood Urea Nitrogen 21 mg/dL (7-17); Calcium 9.6 mg/dL (8.4-10.2); Carbon Dioxide 25 mmol/L (22-30); Chloride 101 mmol/L (98-107); Estimated CRCL calculation 35 ml/min; Estimated Glomerular Filt Rate 53; Glucose 103 mg/dL (65-110); Potassium 3.8 mmol/L (3.4-5.0); Sodium 139 mmol/L (137-145)
[2021-06-09 19:04] VITALS: BP 133/81; PULSE 64; RESP 14; TEMP 36.9; O2SAT 97
== END 2021-06-09 19:08 | disposition home or self-care (01) ==
PROVIDERS: Physician Assistant; Emergency Provider Emergency Medicine; PCP Internal Medicine
DX: R33.9 Retention of urine, unspecified (principal); Z87.891 Personal history of nicotine dependence; K21.9 Gastro-esophageal reflux disease without esophagitis; E78.5 Hyperlipidemia, unspecified; I10 Essential (primary) hypertension; E03.9 Hypothyroidism, unspecified
CPT/HCPCS: 36415; 51702; 74177; 80048; 81001; 83605; 85025; 87086; 99284; Q9967

== ENCOUNTER 2021-06-10 08:31 | Outpatient (CLI) | payer MEDICARE, SELFPAY ==
--- NOTE | 2021-06-10 08:30 | ECG_ITS ---
Measurements Intervals [place] Rate: 68 P: 63 [place]: 180 QRS: -2 QRSD: 99 T: 72 QT: 319 QTc: 340 Interpretive Statements SINUS RHYTHM EARLY PRECORDIAL R/S TRANSITION LEFT VENTRICULAR HYPERTROPHY BORDERLINE T WAVE ABNORMALITY- HIGH LATERAL LEADS BASELINE ARTIFACT- I, III, AVR, AVL BORDERLINE ECG Electronically Signed On 06-10-2021 9:01:23 CDT by Tanvir Lynne D.O.
[2021-06-10 09:12] LABS: INR 0.9; Partial Thromboplastin Time 23.9 SECONDS (22.3-36.8); Prothrombin Time 12.3 Seconds (11.1-14.7)
== END 2021-06-10 08:32 | disposition home or self-care (01) ==
LOC: ANHSURGERY 08:35
PROVIDERS: PCP Internal Medicine; Visit Provider Urology
DX: Z01.818 Encounter for other preprocedural examination (principal); I10 Essential (primary) hypertension; N20.0 Calculus of kidney
CPT/HCPCS: 36415; 85610; 85730; 93005

== ENCOUNTER 2021-06-12 02:18 | Day surgery (SDC) | payer MEDICARE, SELFPAY ==
[2021-06-09 09:59] VITALS: BMI 23.5
--- NOTE | 2021-06-09 10:25 | PC.NURSE ---
Report to the Outpatient Waiting Room, entrance under the green pavilion located off [facility], at time ____12:30pm___ on date __06/12/21___. OR Time: __2:30pm . - You and your visitor will be asked a series of questions to screen for COVID 19 for your protection. - A mask is required within the hospital. - Only one visitor is allowed at this time. Patient visitors will be guided where to wait when not with patient. Preoperative COVID Testing Requirements: No COVID Test needed if: (proof is required; if not received patient will have Rapid Test prior to entry) - Patient has received COVID Vaccine at least 14 days prior to procedure date or - Patient has positive COVID test result within last 90 days of surgery date. COVID Test needed if above criteria is not met If not COVID vaccinated a COVID test must be conducted within 72 hours of surgery and patient is asked to isolate self from time of testing until procedure. You will go to the [facility] [place] [facility] for your COVID testing. The [facility] is located at the corner of [address] [facility]. You will only be called if COVID results are positive and your surgeon may reschedule your elective surgery date. Patients may have clear liquids (water, carbonated beverages, clear teas, apple juice) until 3 hours prior to surgery with a maximum of 20 ounces. - No food from midnight until time of surgery - Infants may have breast milk until 4 hours before surgery, formula 6 hours prior to surgery. - Children will be allowed to drink immediately following surgery. If applicable, please bring a bottle or sippy cup to assist with drinking. Juice, water, soda, and popsicles are readily available. For infants on formula, please bring formula the day of surgery. Pacifiers are allowed. Take the following medications with a SIP of water the morning of surgery: Amlodipine, Cefdinir, Levothyroxine Medications to discontinue per physician Aspirin & All Vitamins/Supplements as of now 06/09/21 Date to take last dose 06/09/21 Please no make-up, nail pashto, hairspray, perfume, deodorant, or body powder the day of surgery. No jewelry (including any body piercings) or valuables the day of surgery, leave them at home. Please take a shower or bath the night before, or the morning of, surgery with an antibacterial soap. Wear comfortable, loose fitting clothing. Children are encouraged to wear pajamas. - Jewelry must be removed prior to entering the operating room. Rings and piercings that are not removed may be cut off. - The hospital will not accept responsibility for valuables. - Please leave all valuables, including medications, at home the day of surgery. If you are going home after surgery, a licensed port cdl a driver must drive you home. - NO public transportation without another adult. - We recommend that an adult stay with you for 24 hours following discharge. - We also recommend that you do not drive, make important decision, drink alcoholic beverages, or take any drugs that were not prescribed by your health care provider for at least 24 hours after your discharge time. For Pediatric surgeries, we recommend two adults accompany the child home (only one inside the building at this time). Follow any additional instructions given to you from your surgeon. Telephone instructions given to ___patient and asked if any additional questions and then verbalized understanding. Patient advised to call surgeon office or pre surgery nurse liaison [phone] if any additional questions.
--- NOTE | 2021-06-10 17:00 | PM.HPGS ---
History of Present Illness History of Present Illness Consent: Risks, benefits, and alternatives have been discussed and questions answered. Patient agrees to proceed with procedure. Chief complaint: ureteral, renal kidney stone Narrative: Charla Fraire is a 85 year old female is known to me from a recent admission with an obstructing right mid ureteral calculus. There was a question of urinary tract infection so we placed a stent without further intervention. Her urine culture has since come back negative. She now presents for definitive ESWL for both her right ureteral and renal calculus. She is aware of the risk including, but not limited to, adverse cardiopulmonary events, perinephric hematoma, injury to the kidney and persistent stone fragments. Review of Systems Cardiovascular: Cardiovascular: Denies chest pain, Denies lightheadedness, Denies palpitations and Denies dyspnea Respiratory: Respiratory: Denies dyspnea Gastrointestinal: Gastrointestinal: Denies diarrhea, Denies nausea and Denies vomiting Genitourinary: Genitourinary: Denies hematuria and Denies dysuria Endocrine: Endocrine: Denies palpitations PMFSH Past Medical History Medical History GERD (gastroesophageal reflux disease) Hyperlipidemia Hypertension Hypothyroid Surgical History Surgical History H/O colonoscopy History of thyroidectomy Family History Family History Sibling Hypertension Family history of diabetes mellitus in first degree relative Family history of coronary artery disease Mother Family history of congenital heart disease, Onset Age: 84 Patient's mother is Social History Social History Smoking packs per day: 1 Smoking cigarettes per day: 20.0 Smoking status: Former smoker Tobacco type: cigarettes Second hand tobacco smoke exposure: No Smoking end date: 02/06/1960 Additional smoking assessment comments: 1 PACK/WEEK X 10 YRS Alcohol intake: never Substance use: never Additional living arrangements comments: [facility] Gender identity (if verbalized by the patient): Female Spiritual care concerns: No Agree to blood products: Yes Meds Home Medications and Allergies Home Medications Medication Instructions Recorded Confirmed Type Complete Multi 50+ 1 tablet PO DAILY 06/08/19 06/09/21 History amlodipine 5 mg PO BID 06/08/19 06/09/21 History calcium carbonate [Calcium 500] 500 mg PO DAILY 06/08/19 06/09/21 History levothyroxine 50 mcg PO QAM 06/08/19 06/09/21 History losartan 100 mg PO QAM 06/08/19 06/09/21 History simvastatin 20 mg PO HS 06/08/19 06/09/21 History meloxicam 15 mg PO DAILY PRN 06/07/21 06/09/21 History cefdinir 300 mg PO Q12H 6 Days #12 cap 06/08/21 06/09/21 Rx Saccharomyces boulardii [Florastor] 250 mg PO DAILY 06/09/21 06/09/21 History aspirin [Aspir-81] 81 mg PO DAILY 06/09/21 06/09/21 History biotin 2,000 mcg PO DAILY 06/09/21 06/09/21 History coenzyme Q10 [CoQ-10] 100 mg PO DAILY 06/09/21 06/09/21 History famotidine 20 mg PO HS 06/09/21 06/09/21 History tamsulosin 0.4 mg PO DAILY 7 Days #7 cap 06/09/21 Rx Allergies Allergy/AdvReac Type Severity Reaction Status Date / Time Sulfa (Sulfonamide Allergy Unknown Vomiting, Verified 06/09/21 14:06 Antibiotics) DIARRHEA Exam Const: General: no acute distress Resp: Effort & Inspection: normal respiratory effort GI: Inspection: non-distended GI Palp: No abdominal tenderness and No Guarding due to palpation present (GI) Auscultation: normal bowel sounds Assessment and Plan Assessment and plan (1) Ureterolithiasis: Code(s): N20.1 - Calculus of ureter Status: Acute Assessment and Plan: Right ESWL
[2021-06-12] VITALS (7 sets, daily range): BP systolic 151–170; BP diastolic 53–86; PULSE 65–72; RESP 11–16; TEMP 36.3; O2SAT 95–100
--- NOTE | ~2021-06-12 | XR_ITS ---
EXAMINATION: XR abdomen/kub 1V EXAM DATE: 06/12/2021 12:18 INDICATION: ESWL . TECHNIQUE: Frontal projection(s) of the abdomen for interpretation. Comparison is made to prior exami nation from 06/08/2021. FINDINGS: There is approximately 7 mm stone projecting just above the proximal loop of right double- J ureteral stent. There is another density projecting over the proximal aspect of the stent which cou ld be a proximal ureteral stone. These findings have been indicated. Nonobstructive bowel gas pattern . There is no organomegaly. There are mild bony degenerative changes. IMPRESSION: 1. Right proximal ureteral stone, nephrolithiasis unchanged. Stent in position. Reviewed, dictated and finalized at location A. IMPRESSION: 1. Right proximal ureteral stone, nephrolithiasis unchanged. Stent in position .
--- NOTE | 2021-06-12 06:48 | WPDHPUPDATE1 ---
History and Physical Update Update Date/Time: 06/12/21 06:48 History and Physical has been reviewed, including an updated exam of the patient. There are NO changes in the patient's condition. Risks, benefits, and alternatives have been discussed and questions answered. Patient agrees to proceed with procedure.
[2021-06-12] MEDS: LACTATED RINGERS 1,000 ML 30 ML IV CONT ×2 (12:46→16:15)
--- NOTE | 2021-06-12 14:06 | WPDANESEPPF ---
Anes - Initial Pre Proc Eval Procedure: Operation Date: 06/12/21 14:30 Proposed Procedures p Right Ureteral and Renal Extracorporeal Shock Wave Lithotripsy - Sarbjit Davis MD Date/Time: 06/12/21 14:06 Surgeon: Sarbjit Davis MD Pre Op Diagnosis: ureteral, renal kidney stone Patient Data Age: 85 Gender: F Height: 1.68 m Weight: 66 kg Allergies Allergy/AdvReac Type Severity Reaction Status Date / Time Sulfa (Sulfonamide Allergy Unknown Vomiting, Verified 06/12/21 13:05 Antibiotics) DIARRHEA Home Medications Medication Instructions Recorded Confirmed Type Complete Multi 50+ 1 tablet PO DAILY 06/08/19 06/12/21 History amlodipine 5 mg PO BID 06/08/19 06/12/21 History calcium carbonate [Calcium 500] 500 mg PO DAILY 06/08/19 06/12/21 History levothyroxine 50 mcg PO QAM 06/08/19 06/12/21 History losartan 100 mg PO QAM 06/08/19 06/12/21 History simvastatin 20 mg PO HS 06/08/19 06/12/21 History meloxicam 15 mg PO DAILY PRN 06/07/21 06/12/21 History cefdinir 300 mg PO Q12H 6 Days #12 cap 06/08/21 06/12/21 Rx Saccharomyces boulardii [Florastor] 250 mg PO DAILY 06/09/21 06/12/21 History aspirin [Aspir-81] 81 mg PO DAILY 06/09/21 06/12/21 History biotin 2,000 mcg PO DAILY 06/09/21 06/12/21 History coenzyme Q10 [CoQ-10] 100 mg PO DAILY 06/09/21 06/12/21 History famotidine 20 mg PO HS 06/09/21 06/12/21 History tamsulosin 0.4 mg PO DAILY 7 Days #7 cap 06/09/21 06/12/21 Rx Patient hx anesthesia problems: none Family hx anesthesia problems: none Results Review: All pre-operative results and documents have been reviewed as part of the pre-operative evaluation. PENDING SALE TO [facility] Past Medical History Medical History GERD (gastroesophageal reflux disease) Hyperlipidemia Hypertension Hypothyroid Surgical History Surgical History H/O colonoscopy History of thyroidectomy Family History Family History Sibling Hypertension Family history of diabetes mellitus in first degree relative Family history of coronary artery disease Mother Family history of congenital heart disease, Onset Age: 84 Patient's mother is Social History Social History Smoking packs per day: 1 Smoking cigarettes per day: 20.0 Smoking status: Former smoker Tobacco type: cigarettes Second hand tobacco smoke exposure: No Smoking end date: 02/06/1960 Additional smoking assessment comments: 1 PACK/WEEK X 10 YRS Alcohol intake: never Substance use: never Living arrangements: with family Additional living arrangements comments: [facility] Gender identity (if verbalized by the patient): Female Spiritual care concerns: No Agree to blood products: Yes Anes - Eval Final PreProcedure Day of Procedure 06/12/21 14:06 Patient weight: overweight Heart: regular rate and rhythm Lungs: clear to auscultation and normal air movement Airway: Mallampati scale class II Neurological: alert and oriented Last oral intake: >/= 8 hours ASA classification: II Emergent: no Anesthetic plan: proceed Anesthesia type and monitoring: general LMA Results Review: All pre-operative results and documents have been reviewed as part of the pre-operative evaluation. Informed Consent: The patient's anesthetic plan and its attendant risks and benefits were discussed with the patient/family/POA. Questions were solicited and answers provided to the satisfaction of the patient/family/POA.
[2021-06-12] MEDS: ceFAZolin 2 GM/D5W 50 ML 2 GM/50 ML BAG IVPB (14:54)
--- NOTE | 2021-06-12 15:52 | P.OP_ITS ---
Procedure Note - Detailed Date of Procedure 06/12/21 Pre-op Diagnosis Right ureteral and right renal stones Post-op Diagnosis same Procedure Performed Right ESLW Surgeon Sarbjit Davis MD Anesthesia general Description of Procedure The patient was brought to the operative suite where she was placed in the supi ne position on the [place] lithotripsy table. The focal point of the lithotripter was placed first at a 5mm right proximal ureteral calculus. A total of 1250 shocks were delivered at a power setting of 4, after which there appeared to be good fragmentation. We then treated a similar size right renal stone with an addional 1250 shocks at the same power setting. There appeared to be good fragmentation of the stone. The patient tolerated the procedure well and was taken to the recovery room in good condition. Drains No Packing No Pathology none sent Complications No immediate complications Condition stable Disposition PACU
== END 2021-06-12 18:10 | disposition home or self-care (01) ==
PROVIDERS: PCP Internal Medicine; Visit Provider Urology
PROC: (CPT 50590; principal; 2021-06-12 14:30)
DX: N20.2 Calculus of kidney with calculus of ureter (principal); Z79.82 Long term (current) use of aspirin; K21.9 Gastro-esophageal reflux disease without esophagitis; I10 Essential (primary) hypertension; E78.5 Hyperlipidemia, unspecified; E89.0 Postprocedural hypothyroidism; Z87.891 Personal history of nicotine dependence
CPT/HCPCS: 50590; 36415; 74018; 85610; 85730; 93005; J0690; J1100; J2405; J2704; J3010; J7120

== ENCOUNTER 2021-06-24 14:30 | Outpatient (CLI) | payer MEDICARE, SELFPAY ==
--- NOTE | ~2021-06-24 | XR_ITS ---
EXAMINATION: XR abdomen/kub 1V DATE: 06/24/2021 14:53 INDICATION: Right ureteral stone post shockwave lithotripsy TECHNIQUE: A supine view of the abdomen on 2 radiographs was obtained. COMPARISON: CT dated 06/09/2021 and KUB dated 06/12/2021 FINDINGS: Unchanged right internal ureteral stent with loops formed over the expected location of the right flavia al pelvis. The previously seen 6 mm stone at the right renal pelvis is no longer visualized consisten t with history of interval lithotripsy. There appears be a residual 1-2 mm stone fragment projecting within the proximal loop of the internal ureteral stent. No stone fragments identified more distally in the ureter alongside the ureteral stent. No other urolithiasis. Normal bowel gas pattern. Moderate lower lumbar spondylosis. IMPRESSION: 1. Interval lithotripsy of a prior 6 mm right renal stone with residual 1-2 mm stone fragment in the right renal pelvis projecting within the formed loop of a right internal ureteral stent. Reviewed, dictated and finalized at location A. K SORTER
== END 2021-06-24 14:31 | disposition home or self-care (01) ==
LOC: ANHIMG 14:40
PROVIDERS: PCP Internal Medicine; Visit Provider Urology
DX: N20.2 Calculus of kidney with calculus of ureter (principal); M47.816 Spondylosis without myelopathy or radiculopathy, lumbar region
CPT/HCPCS: 74018

== ENCOUNTER 2021-11-04 11:05 | Outpatient (CLI) | payer MEDICARE, SELFPAY ==
--- NOTE | ~2021-11-04 | XR_ITS ---
EXAMINATION: XR abdomen/kub 1V DATE: 11/04/2021 11:27 INDICATION: Right ureteral stone. TECHNIQUE: A supine view of the abdomen on 2 radiographs was obtained. COMPARISON: CT abdomen and pelvis 06/09/2021 FINDINGS: There are no dilated loops of bowel. There is no visible urolithiasis. IMPRESSION: 1. No visible urolithiasis. Reviewed, dictated and finalized at location A. IMPRESSION: 1. No visible urolithiasis.
== END 2021-11-04 11:06 | disposition home or self-care (01) ==
PROVIDERS: Visit Provider Urology
DX: N20.1 Calculus of ureter (principal)
CPT/HCPCS: 74018

== ENCOUNTER 2022-07-22 12:19 | Inpatient (IN) | payer MEDICARE, SELFPAY ==
[2022-07-22] VITALS (24 sets, daily range): BP systolic 105–213; BP diastolic 47–100; PULSE 66–94; RESP 11–18; TEMP 36.6–36.7; O2SAT 94–99
--- NOTE | ~2022-07-22 | MR_ITS ---
EXAMINATION: MR brain/brain stem wo/w con DATE: 07/22/2022 18:23 INDICATION: Transient ischemic episode TECHNIQUE: Magnetic resonance imaging (MRI) of the brain and brainstem was performed without and with 15 mL Multihance intravenous contrast. Sequences included sagittal and axial T1-weighted SE, axial d iffusion-weighted FS SE, axial T2*-weighted GRE, axial 3D SWAN, axial T2-weighted FLAIR, and axial T2 -weighted FSE. Postcontrast axial and coronal T1-weighted SE was obtained. Apparent diffusion coeffic ient (ADC) maps were created. COMPARISON: Head CT and CT angiogram dated 07/22/2022 FINDINGS: There are no areas of restricted diffusion to suggest acute infarction. No intracranial hemorrhage or abnormal intracranial mass lesion. There are scattered areas of nonspecific increased T2-weighted si gnal intensity in the cerebral white matter, predominantly involving the deep and periventricular whi te matter which is within normal limits for age. There are no intraparenchymal signal abnormalities s een on the other pulse sequences. The ventricles are symmetric and normal in size. There are no abnor mal extra-axial fluid collections. Flow voids are seen in the cerebral arteries on the T2-weighted se quences consistent with their expected patency. Contrast is seen within the cerebral arteries in the left middle cerebral artery vascular distribution distal to the site of the suspected stenosis versus thrombosis at the origin of the left MCA assessment of which is limited on the current nonangiograph ic study. Changes of bilateral intraocular lens replacement. Visualized orbits and soft tissues are u nremarkable. There are no areas of abnormal enhancement on the post contrast images. IMPRESSION: 1. No acute infarct or other acute intracranial process. As on the prior CT angiogram, contrast is se en within the small arteries of the left middle cerebral artery vascular distribution peripheral to a suspected thrombus or stenosis at the origin of the left middle cerebral artery which is not clearly appreciated on the current non angiographic study. 2. Small amount of periventricular predominant nonspecific white matter T2 hyperintensity which is wi thin normal limits for age and likely sequela of chronic small vessel ischemic disease. Reviewed, dictated and finalized at location A. SPECIALIST IMPRESSION: 1. No acute infarct or other acute intracranial process. As on the prior CT ang iogram, contrast is seen within the small arteries of the left middle cerebral artery vascular distribution peripheral to a suspected thrombus or stenosis at the origin of the left middle cerebral artery which is not clearly appreciated on the current non angiographic study. 2. Small amount of periventricular predominant nonspecific white matter T2 hype rintensity which is within normal limits for age and likely sequela of chronic small vessel ischemic disease.
--- NOTE | ~2022-07-22 | CT_ITS ---
Non-contrast Head CT History: CVA, right-sided numbness and tingling Technique: Axial non-contrast imaging of the brain was performed. Dose reduction technique was used on this scan by utilizing automated exposure control and iterative reconstruction technique. The dose -length product (DLP) was 605.33 mGy-cm. Findings: There is no evidence of intracranial hemorrhage, mass lesion, or acute infarct. Brain par enchyma appears normal. The ventricles and subarachnoid spaces are normal in size. The calvarium ap pears normal. The visualized paranasal sinuses and mastoid air cells are clear. Impression: No significant abnormality seen. Case discussed with Dr. Paredes at 12:40 PM on 07/22/2022. Reviewed, dictated and finalized at location [] SMITTER ENGINEER IN CHARGE Impression: No significant abnormality seen. Case discussed with Dr. Paredes at 12:40 PM on 07/22/2022.
--- NOTE | ~2022-07-22 | XR_ITS ---
Portable chest x-ray Comparison: None Clinical History: CVA Findings: Lungs are clear, without focal consolidation or pleural effusion. Cardiomediastinal silho uette is unremarkable. Bones and soft tissues are unremarkable. Impression: Clear lungs. Reviewed, dictated and finalized at location [] DESIGNER Impression: Clear lungs.
--- NOTE | ~2022-07-22 | US_ITS ---
EXAMINATION: US carotid duplex BI DATE: 07/22/2022 17:50 INDICATION: Transient ischemic episode TECHNIQUE: Grayscale, color Doppler, and pulsed Doppler images of the cervical carotid arteries were obtained. The degree of vessel stenosis is placed in one of the following categories: normal, <50%, 5 0-69%, >=70% but less than near-occlusion, near-occlusion, or total occlusion. Note that percent sten osis relative to normal distal artery lumen diameter is indirectly measured from velocity measurement s as described by Marcellus, et al. Radiology 2003; 229:340-346. COMPARISON: Carotid CT angiogram dated 07/22/2022 FINDINGS: RIGHT: The right common carotid artery (CCA) peak systolic velocity (PSV) is 89 cm/s. The right internal car otid artery (ICA) PSV is 161 cm/s. The right ICA end-diastolic velocity (EDV) is 36 cm/s. The right I CA/CCA PSV ratio is 1.8. Grayscale and color Doppler images yield an estimate of 50-69% diameter redu ction from plaque in the ICA. The external carotid artery (ECA) PSV is 203 cm/s. There is antegrade f low in the right vertebral artery with high resistance waveform. LEFT: The left CCA PSV is 93 cm/s. The left ICA PSV is 142 cm/s. The left ICA EDV is 25 cm/s. The left ICA/ CCA PSV ratio is 1.5. Grayscale and color Doppler images yield an estimate of 50-69% diameter reducti on from plaque in the ICA. The ECA PSV is 194 cm/s. There is antegrade flow in the left vertebral art ad. IMPRESSION: 1. 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 2. 50-69% stenosis in the left internal carotid artery. 3. High resistance waveform in the right vertebral artery likely related to what appears to be a high -grade stenosis seen on prior CT angiograms where it enters the thecal space near the level of C1. Reviewed, dictated and finalized at location A. UTIVE CHEF IMPRESSION: 1. 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 2. 50-69% stenosis in the left internal carotid artery. 3. High resistance waveform in the right vertebral artery likely related to wha t appears to be a high-grade stenosis seen on prior CT angiograms where it ente rs the thecal space near the level of C1.
--- NOTE | ~2022-07-22 | CT_ITS ---
CT ANGIOGRAM HEAD and NECK History: CVA, stroke symptoms, right-sided numbness. Technique: Serial spiral axial images through the head and neck were obtained during arterial phase I V injection of 100 cc of Omnipaque 350. 3-D postprocessing and MIP images were then reconstructed on the remote workstation. Dose reduction technique was used on this scan by utilizing automated exposur e control and iterative reconstruction technique. The dose-length product (DLP) was 887.25 mGy-cm. CTA head findings:: Distal right vertebral artery terminates as the right PICA, normal variant. Dista l left vertebral artery, basilar artery, and bilateral posterior cerebral arteries are patent. No federico nosis or occlusion of these vessels. There is extensive atherosclerotic calcification of the cavernous portion of the bilateral distal int ernal carotid arteries. The right middle and right anterior cerebral arteries are widely patent. Left anterior cerebral artery widely patent. There is abrupt decrease in caliber at the origin of left MC A, with opacification the more distal left MCA tree. Appearance is suggestive a nonocclusive embolus/ thrombus at the origin of the left MCA. CTA neck findings: There is a large calcified plaque at the right carotid bifurcation/origin of the right internal carotid artery. The proximal right internal carotid artery demonstrates 90% stenosis r elative to the normal distal artery lumen diameter. There is also a large, calcified plaque at the left carotid bifurcation/proximal left internal caroti d artery. The proximal left internal carotid artery demonstrates 90% stenosis relative to the normal distal artery lumen diameter. Remainder of the bilateral common carotid and external carotid arteries are patent. The mid and dista l portions of bilateral cervical internal carotid arteries are patent. Impression: Abrupt narrowing at the origin of the left MCA, suspicious for incompletely occlusive embolus/thrombu s at this location. High-grade stenoses, approximately 90%, at the bilateral proximal internal carotid arteries. Findings discussed with Dr. Paredes at 1:20 PM on 07/22/2022. Reviewed, dictated and finalized at location [] [employer] Impression: Abrupt narrowing at the origin of the left MCA, suspicious for incompletely occ lusive embolus/thrombus at this location. High-grade stenoses, approximately 90%, at the bilateral proximal internal ken tid arteries. Findings discussed with Dr. Paredes at 1:20 PM on 07/22/2022.
[2022-07-22 12:28] LABS: Glucose Point of Care 194 mg/dl (65-105)
--- NOTE | 2022-07-22 12:28 | ECG_ITS ---
Measurements Intervals [place] Rate: 75 P: 60 AK: 171 QRS: 1 QRSD: 101 T: 77 QT: 344 QTc: 385 Interpretive Statements SINUS RHYTHM BASELINE ARTIFACT IN THE LATERAL LEADS COMPARED TO ECG 06/10/2021 08:52:54 NO SIGNIFICANT CHANGES Electronically Signed On 07-22-2022 16:08:48 RN DISEASE MANAGEMENT by Zoey Izquierdo M.D.
--- NOTE | 2022-07-22 12:55 | PC.NURSE ---
Patient back to CT
[2022-07-22 12:56] LABS: Basophils Absolute Auto 0.1 K/mm3 (0.0-0.1); Basophils Percent Auto 0.6 % (0.2-1.2); Eosinophils Absolute Auto 0.2 K/mm3 (0-0.3); Hematocrit 42.4 % (37.0-47.0); Hemoglobin 14.5 g/dL (12.0-15.0); Immature Granulocyte Absolute 0.04 K/mm3 (0.00-0.031); Immature Granulocyte Percent A 0.4 % (0-0.5); Lymphocytes Percent Auto 32.9 % (18.3-44.2); Mean Corpuscular HGB Conc 34.2 g/dl (32-36); Mean Corpuscular Hemoglobin 31.2 pg (26-34); Mean Corpuscular Volume 91.2 fl (80-100); Mean Platelet Volume 10.2 fl (7.4-10.4); Monocytes Absolute Auto 1.1 K/mm3 (0.1-0.6); Monocytes Percent Auto 11.1 % (2.6-8.5); Platelet Count Result 233 k/mm3 (150-375); Red Blood Count 4.65 M/mm3 (4.2-5.4); Red Cell Distribution Width 13.8 % (11.5-14.5); White Blood Count 9.4 K/mm3 (4.5-10.0)
[2022-07-22 13:08] LABS: Alanine Aminotransferase 23 U/L (6-35); Albumin Level 4.8 g/dL (3.5-5.1); Alkaline Phosphatase 76 U/L (38-126); Anion Gap 10 mmol/L (8-16); Aspartate Amino Transferase 26 U/L (14-36); Bilirubin,Total 0.7 mg/dL (0.2-1.3); Blood Urea Nitrogen 12 mg/dL (7-17); Calcium 8.8 mg/dL (8.4-10.2); Carbon Dioxide 25 mmol/L (22-30); Chloride 105 mmol/L (98-107); Estimated CRCL calculation 47 ml/min; Estimated Glomerular Filt Rate > 60; Glucose 181 mg/dL (65-110); Potassium 3.8 mmol/L (3.4-5.0); Sodium 140 mmol/L (137-145)
[2022-07-22 13:09] LABS: Partial Thromboplastin Time 25.3 SECONDS (22.3-36.8); Prothrombin Time 12.5 Seconds (11.1-14.7)
[2022-07-22 13:13] LABS: Estimated CRCL calculation 41 ml/min; Estimated Glomerular Filt Rate > 60
[2022-07-22 13:18] LABS: Troponin I < 0.012 ng/mL (0.000-0.034)
[2022-07-22 13:32] LABS: Influenza A QL RT-PCR Negative (Negative); Influenza B QL RT-PCR Negative (Negative); SARS-CoV-2 RNA PCR Negative
--- NOTE | 2022-07-22 13:37 | ED.NEUROSD ---
HPI - Neuro Symptoms/Deficit General Chief Complaint: Suspected CVA Stated Complaint: right side leg tingling Time Seen by Provider: 07/22/22 12:35 Source: patient Mode of arrival: wheelchair Limitations: no limitations History of Present Illness HPI Narrative: 87-year-old with a history of paroxysmal atrial fibrillation, hypertension, hyperlipidemia here with complaints of sudden onset of vision loss on the right side about 11:45 AM. Patient states the symptoms lasted about 15 minutes. She also complains of tingling sensation on the right side of her upper extremity and lower extremity. She denied any weakness. She presently denies having any headache or chest pain. She states all her symptoms subsided by the time she came to the ER except for mild tingling sensation in her lower extremities. She denies any previous history of strokes. She is only on aspirin 81 mg daily. Last Observed Normal: 11:45 Location: other (vision loss) History of same: Yes Severity: moderate Quality: numb and tingling Relieving factors: none Exacerbating factors: none Context: sudden onset On Anticoagulants: Yes (Aspirin) Associated symptoms: denies other symptoms Related Data Home Medications Medication Instructions Recorded Confirmed amlodipine 5 mg tablet 5 mg PO BID 06/08/19 06/12/21 calcium carbonate 500 mg calcium 500 mg PO DAILY 06/08/19 06/12/21 (1,250 mg) tablet (Calcium 500) levothyroxine 50 mcg tablet 50 mcg PO QAM 06/08/19 06/12/21 losartan 100 mg tablet 100 mg PO QAM 06/08/19 06/12/21 ichbpywt-wca-hxeej acid 500 1 tablet PO DAILY 06/08/19 06/12/21 mcg-lycopene 300 mcg-lutein 250 mcg tablet (Complete Multi 50+) simvastatin 20 mg tablet 20 mg PO HS 06/08/19 06/12/21 meloxicam 15 mg tablet 15 mg PO DAILY PRN Pain 06/07/21 06/12/21 Saccharomyces boulardii 250 mg 250 mg PO DAILY 06/09/21 06/12/21 capsule (Florastor) aspirin 81 mg tablet,delayed 81 mg PO DAILY 06/09/21 06/12/21 release biotin 1,000 mcg chewable tablet 2,000 mcg PO DAILY 06/09/21 06/12/21 coenzyme Q10 100 mg capsule 100 mg PO DAILY 06/09/21 06/12/21 (CoQ-10) famotidine 20 mg tablet 20 mg PO HS 06/09/21 06/12/21 Allergies Allergy/AdvReac Type Severity Reaction Status Date / Time Sulfa (Sulfonamide Allergy Unknown Vomiting, Verified 06/12/21 13:05 Antibiotics) DIARRHEA Review of Systems Review of Systems: All systems reviewed & are unremarkable except as noted in HPI and below Constitutional: Constitutional: Reports no additional constitutional complaints Eyes: Eyes: Reports as per HPI ENT: Reports system reviewed and no additional complaints, except as documented Cardiovascular: Cardiovascular: Reports no additional cardiovascular complaints Respiratory: Respiratory: Reports no additional respiratory complaints Gastrointestinal: Gastrointestinal: Reports no additional gastrointestinal complaints Musculoskeletal: Musculoskeletal: Reports no additional musculoskeletal complaints Neurologic: Reports as per HPI Psychiatric: Psychiatric: Reports no additional psychiatric complaints Endocrine: Endocrine: Reports no additional endocrine complaints [facility] Past Medical History Medical History (Updated 07/22/22 @ 14:16 by Brooke Burr NP) GERD (gastroesophageal reflux disease) Hyperlipidemia Hypertension Hypothyroid Kidney stones Skin cancer Surgical History Surgical History (Updated 07/22/22 @ 14:16 by Brooke Burr NP) H/O cataract extraction H/O colonoscopy H/O: hysterectomy History of thyroidectomy Family History Family History Sibling Hypertension Family history of diabetes mellitus in first degree relative Family history of coronary artery disease Mother Family history of congenital heart disease, Onset Age: 84 Patient's mother is Social History Social History Smoking packs per
--- NOTE | 2022-07-22 14:14 | PM.IMHP ---
H&P: HPI History of Present Illness Date/Time: 07/22/22 14:14 Chief Complaint: Neurological symptoms Narrative: This is an 87-year-old female patient who has a history of paroxysmal atrial fibrillation and does not appear to be on any anticoagulation. She also has hypertension and hyperlipidemia. The patient had a sudden onset of vision loss on the right side approximately 11:45 a.m.. The patient's symptoms lasted for approximately 15 minutes and then subsided. The patient was also was also complaining of tingling sensation on the right side of the upper extremity and lower extremity. She denies any weakness. She denies any headache or chest pain. All of her symptoms have subsided upon arrival to the emergency room. The patient was talking in full sentences able to answer questions without difficulty. The patient has been on an aspirin daily. Chest x-ray was read as clear lungs. Head neck CTA was read as the following abrupt narrowing at the origin of the left MCA, suspicious for incompletely occlusive embolus/thrombus at this location. High-grade stenoses, approximately 90%, at the bilateral proximal internal carotid arteries. Head CT was read as no significant abnormality seen. ED provider stated that he did call [facility] and they accepted the patient however they have no beds at this time. Neurology here has been consulted and he agrees to consult on the patient. The patient is being admitted to inpatient status well waiting a bed at [facility]. The date of service is 07/22/2022. Review of Systems Review of Systems: See HPI All systems reviewed & are unremarkable except as noted in HPI and below Constitutional: Constitutional: Reports as per HPI and Reports no additional constitutional complaints Eyes: Eyes: Reports as per HPI and Reports no additional eye complaints ENT: Reports system reviewed and no additional complaints, except as documented and Reports Normal hearing present Cardiovascular: Cardiovascular: Reports no additional cardiovascular complaints Respiratory: Respiratory: Reports no additional respiratory complaints and Reports no additional respiratory complaints Gastrointestinal: Gastrointestinal: Reports as per HPI and Reports no additional gastrointestinal complaints Musculoskeletal: Musculoskeletal: Reports no additional musculoskeletal complaints Integumentary/Breasts: Skin/Breast: Reports system reviewed and no additional complaints, except as docu and Reports as per HPI Neurologic: Reports system reviewed and no additional complaints, except as documented, Reports as per HPI and Reports Normal hearing present Psychiatric: Psychiatric: Reports no additional psychiatric complaints and Reports as per HPI Endocrine: Endocrine: Reports no additional endocrine complaints Hematologic/Lymphatic: Hematologic/Lymphatic: Reports no additional hematologic/lymphatic complaints Allergic/Immunologic: Allergic/Immunologic: Reports no additional allergic/immunologic complaints PENDING SALE TO [facility] Past Medical History Medical History (Updated 07/22/22 @ 18:43 by Brooke Burr NP) GERD (gastroesophageal reflux disease) Hyperlipidemia Hypertension Hypothyroid Kidney stones Skin cancer Surgical History Surgical History (Updated 07/22/22 @ 18:18 by Brooke Burr NP) H/O cataract extraction H/O colonoscopy H/O shoulder surgery H/O: hysterectomy History of extraction of renal calculus History of thyroidectomy S/P bladder repair Family History Family History Sibling Hypertension Family history of diabetes mellitus in first degree relative Family history of coronary artery disease Mother Family history of congenital heart disease, Onset Age: 84 Patient's mother is Social History Social History (Updated 07/22/22 @ 18:21 by Brooke Burr NP) Social History: The patient is to richa. She has 2 biological children and 4 step. Sh
--- NOTE | 2022-07-22 15:43 | ADMGEN ---
This patient, Charla Fraire, was admitted to Medical Room 246-01. Patient/family oriented to hospital policies and general routines including ID bracelet, bed and alarms, visiting hours, pain management, procedures, bathroom and other care routines, personal items, smoking policy, room service/diet, and visiting hours. Information on how to activate the Rapid Response Team has been discussed. Patient/Family are encouraged to report perceived risks to care and to ask questions if they do not understand what they are told or what they should do.
[2022-07-22] MEDS: SODIUM CHLORIDE 0.9% IV 1,000 ML 75 ML IV CONT (17:06)
[2022-07-22 19:37] LABS: Troponin I < 0.012 ng/mL (0.000-0.034)
[2022-07-22] MEDS: amLODIPine BESYLATE 5 MG TABLET PO (21:23)
[2022-07-22] MEDS: FAMOTIDINE 20 MG TABLET PO (21:23)
[2022-07-22] MEDS: CLOPIDOGREL BISULFATE 75 MG TABLET PO (21:24)
[2022-07-22 21:53] LABS: Troponin I < 0.012 ng/mL (0.000-0.034)
[2022-07-23] VITALS (11 sets, daily range): BP systolic 144–157; BP diastolic 44–56; PULSE 68–77; RESP 16–18; TEMP 36.3–36.9; O2SAT 95–98
--- NOTE | 2022-07-23 | ECHO_ITS ---
Patient Info Name: Charla Fraire Age: 87 years : 1935 Gender: Female Ht: 66 in Wt: 167 lbs BSA: 1.89 m2 HR: 72 bpm BP: 156 / 56 mmHg Heart Rhythm: Sinus Rhythm Technical Quality: Fair Exam Date: 07/23/2022 10:19 AM Exam Location: [facility] Pulmonary Patient Status: Inpatient Admit Date: 07/22/2022 Staff Ordering Physician: Maynor Paredes MD Donor Relations Coordinator: Libra Saldaña RDCS Attending Provider: Dimitry Calderon MD Exam Type: CA echo doppler color flow Study Info Indications - tia Complete two-dimensional, color flow and Doppler transthoracic echocardiogram is performed. Summary 1. Complete two-dimensional, color flow and Doppler transthoracic echocardiogram is performed. 2. Normal left ventricular size thickness and systolic contractility. 3. Grade 1 diastolic noncompliance. 4. Dilated left atrium. 5. Sclerotic aortic valve. 6. Trivial amounts of both mitral and tricuspid valve regurgitation. Left Ventricle Left ventricular chamber dimension is normal. Left ventricular systolic function is normal, estimated at 65-70%. The left ventricular diastolic function is grade I diastolic dysfunction. Right Ventricle Right ventricular chamber dimension is normal. Left Atria Left atrial chamber dimension is moderately enlarged. Right Atria Right atrial chamber dimension is normal. Aortic Valve The aortic valve is trileaflet. There is mild aortic valve sclerosis. There is no aortic valve stenosis. Pulmonic Valve The pulmonic valve is not well visualized. Mitral Valve The mitral valve has normal leaflets. There is trace mitral valve regurgitation. Tricuspid Valve The tricuspid valve leaflets are normal. There is trace tricuspid valve regurgitation. Pericardium/Pleural The pericardium appears normal. Aorta The aortic root size at the sinus of Valsalva is normal. Left Ventricular Outflow Tract Name Value Normal LVOT 2D LVOT Diameter 2.0 cm LVOT Doppler LVOT Peak Gradient 8 mmHg LVOT Mean Gradient 4 mmHg LVOT VTI 30 cm LVOT VTI/AV VTI Ratio 0.7 LVOT Stroke Volume 93 ml LVOT CO 6.6 l/min LVOT CI 3.5 l/min/m2 Pulmonic Valve Name Value Normal RVOT Doppler RVOT Peak Gradient 2 mmHg PV Doppler PV Peak Gradient 5 mmHg Mitral Valve Name Value Normal MV Doppler
[2022-07-23] MEDS: LEVOTHYROXINE SODIUM 50 MCG TABLET PO (05:33)
[2022-07-23 05:57] LABS: Basophils Absolute Auto 0.1 K/mm3 (0.0-0.1); Basophils Percent Auto 0.6 % (0.2-1.2); Eosinophils Absolute Auto 0.2 K/mm3 (0-0.3); Eosinophils Percent Auto 2.1 % (0-4.4); Hematocrit 41.2 % (37.0-47.0); Hemoglobin 14.1 g/dL (12.0-15.0); Immature Granulocyte Absolute 0.03 K/mm3 (0.00-0.031); Immature Granulocyte Percent A 0.3 % (0-0.5); Lymphocytes Percent Auto 27.7 % (18.3-44.2); Mean Corpuscular HGB Conc 34.2 g/dl (32-36); Mean Corpuscular Hemoglobin 30.3 pg (26-34); Mean Corpuscular Volume 88.6 fl (80-100); Mean Platelet Volume 10.2 fl (7.4-10.4); Monocytes Percent Auto 10.6 % (2.6-8.5); Neutrophils Absolute Auto 5.3 K/mm3 (1.3-6.7); Neutrophils Percent Auto 58.7 % (45.5-73.1); Platelet Count Result 211 k/mm3 (150-375); Red Blood Count 4.65 M/mm3 (4.2-5.4); Red Cell Distribution Width 13.5 % (11.5-14.5)
[2022-07-23 06:36] LABS: Magnesium 1.8 mg/dL (1.6-2.3)
[2022-07-23 06:38] LABS: Lactic Acid Reflex 2.2 mmol/L (0.7-2.0)
[2022-07-23] MEDS: CLOPIDOGREL BISULFATE 75 MG TABLET PO (08:43)
[2022-07-23] MEDS: SACCHAROMYCES BOULARDII 250 MG CAPSULE PO (08:43)
[2022-07-23] MEDS: LOSARTAN POTASSIUM 100 MG TABLET PO (08:43)
[2022-07-23] MEDS: SIMVASTATIN 20 MG TABLET 80 MG PO (08:43)
[2022-07-23] MEDS: OPTI-GEN TAB 1 TABLET PO (08:43)
[2022-07-23] MEDS: amLODIPine BESYLATE 5 MG TABLET PO ×2 (08:44→17:02)
[2022-07-23] MEDS: SODIUM CHLORIDE 0.9% IV 1,000 ML 75 ML IV CONT (08:44)
[2022-07-23 08:52] LABS: Reflex Lactic Acid Yes or No Add Lactic
[2022-07-23] MEDS: ACETAMINOPHEN 325 MG TABLET 650 MG PO (09:11)
[2022-07-23 09:30] LABS: Lactic Acid 2.8 mmol/L (0.7-2.0)
[2022-07-23] MEDS: ASPIRIN 81 MG ENTERIC TABLET PO (11:01)
--- NOTE | 2022-07-23 11:08 | PM.IMPN ---
Progress Note: A&P Assessment and Plan (1) TIA (transient ischemic attack): Code(s): G45.9 - Transient cerebral ischemic attack, unspecified Status: Acute Assessment and Plan: -the patient is awaiting a bed at [facility] she has been accepted and we are just waiting for bed. -Abrupt narrowing at the origin of the left MCA, suspicious for incompletely occlusive embolus/thrombus at this location. High-grade stenoses, approximately 90%, at the bilateral proximal internal carotid arteries. -neurology has been consulted. -the patient has already been on an aspirin and a statin. -add Plavix. -MRI read and carotid Dopplers are pending. Echo has been ordered. (2) Carotid stenosis, bilateral: Code(s): I65.23 - Occlusion and stenosis of bilateral carotid arteries Status: Acute Assessment and Plan: -the patient has 90% occlusion of the internal carotid arteries bilaterally. -the patient has already been on an aspirin and simvastatin. -the patient is awaiting for a bed at [facility] as she has already been accepted. (3) Hyperlipidemia: Code(s): E78.5 - Hyperlipidemia, unspecified Status: Chronic Assessment and Plan: -continue with simvastatin but increase it to 80 mg. (4) Hypertension: Code(s): I10 - Essential (primary) hypertension Status: Chronic Assessment and Plan: -continue with losartan and amlodipine (5) Hypothyroid: Code(s): E03.9 - Hypothyroidism, unspecified Status: Acute Assessment and Plan: -check thyroid level -continue levothyroxine. Plan Impressions Subjective Date/time seen: 07/23/22 11:08 Patient was seen during the morning rounds today. Patient denies any chest pain or shortness of breath. No abdominal pain. No tingling or numbness. Review of Systems Review of Systems: All systems reviewed & are unremarkable except as noted in HPI and below Constitutional: Constitutional: Reports as per HPI and Reports no additional constitutional complaints Eyes: Eyes: Reports as per HPI and Reports no additional eye complaints ENT: Reports system reviewed and no additional complaints, except as documented and Reports Normal hearing present Cardiovascular: Cardiovascular: Reports no additional cardiovascular complaints Respiratory: Respiratory: Reports no additional respiratory complaints and Reports no additional respiratory complaints Gastrointestinal: Gastrointestinal: Reports as per HPI and Reports no additional gastrointestinal complaints Musculoskeletal: Musculoskeletal: Reports no additional musculoskeletal complaints Integumentary/Breasts: Skin/Breast: Reports system reviewed and no additional complaints, except as docu and Reports as per HPI Neurologic: Reports system reviewed and no additional complaints, except as documented, Reports as per HPI and Reports Normal hearing present Psychiatric: Psychiatric: Reports no additional psychiatric complaints and Reports as per HPI Endocrine: Endocrine: Reports no additional endocrine complaints Hematologic/Lymphatic: Hematologic/Lymphatic: Reports no additional hematologic/lymphatic complaints Allergic/Immunologic: Allergic/Immunologic: Reports no additional allergic/immunologic complaints Exam Const: General: cooperative, healthy appearing, comfortable, no acute distress, well developed, awake, Physically active, average body habitus and well nourished Nutritional Appearance: average body habitus and well nourished Orientation/consciousness: oriented to person, oriented to place, oriented to time and patient oriented x3 Limitations: no limitations HENMT: Head: normal to inspection, No palpable skull fracture present, normocephalic and atraumatic Ears: external ears normal Face/Nose/Sinus: Normal external nose present and Normal nares present Eyes: General: appearance normal, both eyes and all related structures Alignment and Position: alignment normal Kinza
--- NOTE | 2022-07-23 14:47 | WPDNEURCNPN ---
Assessment and Plan Assessment and plan (1) TIA (transient ischemic attack): Code(s): G45.9 - Transient cerebral ischemic attack, unspecified Status: Acute (2) Carotid stenosis, bilateral: Code(s): I65.23 - Occlusion and stenosis of bilateral carotid arteries Status: Acute Plan TIA with significant underlying large vessel disease patient will benefit from transfer to to the [facility] for further intervention Consult date: 07/23/22 Reason for consult: Right-handed female has been admitted to [facility] through the emergency room where she presented with complaints of sudden onset of visual loss on the right side at around 11:45 a.m. which lasted for about 15 minutes and along with the complaints of tingling sensation on the right side of her upper extremity and lower extremity without associated weakness and also without associated headache or chest pain all the symptomatology subsided by the time she came to the emergency room except the mild tingling sensation in her lower extremities, he was last observed normal at 11 40 5:00 a.m. she has been taking multiple medication which particularly included amlodipine 5 mg b.i.d. losartan 100 mg daily simvastatin 20 mg at night and aspirin 81 mg daily, had ongoing history of hyperlipidemia with hypertension, former smoker by history 1 pack per week for 10 years and never alcohol intake initial examination revealed her to have no focal neurological deficit CT scan of the head was normal but the CTA revealed high-grade carotid stenosis about 90% sent to [facility] was contacted in the emergency room and was accepted and patient was admitted to [facility] up until the bed is available [facility], her vital signs were normal the CTA did not reveal any acute infarct but there were small arteries the left middle cerebral artery vascular distribution raising the suspicion for the stenosis at the origin of the left middle cerebral artery and also carotid Doppler study documented 50 to 69% stenosis in the right ICA and 50 to 69% in the left ICA patient is waiting for the transfer to [facility] and has been taking aspirin 81 mg daily. The echocardiogram has documented grade 1 diastolic noncompliance sclerotic aortic valve and trivial amounts of both mitral and tricuspid regurgitation HPI: Charla Fraire is a 87 year old female Review of Systems Review of Systems: All systems reviewed & are unremarkable except as noted in HPI and below PMFSH Past Medical History Medical History (Updated 07/22/22 @ 18:43 by Brooke Burr NP) GERD (gastroesophageal reflux disease) Hyperlipidemia Hypertension Hypothyroid Kidney stones Skin cancer Surgical History Surgical History (Updated 07/22/22 @ 18:18 by Brooke Burr NP) H/O cataract extraction H/O colonoscopy H/O shoulder surgery H/O: hysterectomy History of extraction of renal calculus History of thyroidectomy S/P bladder repair Family History Family History Sibling Hypertension Family history of diabetes mellitus in first degree relative Family history of coronary artery disease Mother Family history of congenital heart disease, Onset Age: 84 Patient's mother is Social History Social History (Updated 07/22/22 @ 18:21 by Brooke Burr NP) Social History: The patient is to richa. She has 2 biological children and 4 step. She retired from [employer]. She has worked and many retail sales. The patient is a nonsmoker. She does not use any alcohol marijuana or illicit drugs. Code status full code Smoking packs per day: 1 Smoking cigarettes per day: 20.0 Smoking status: Never smoker Tobacco type: cigarettes Second hand tobacco smoke exposure: No Smoking end date: 02/06/1960 Additional smoking assessment comments: 1 PACK/WEEK X 10 YRS Alcohol intake:
[2022-07-23] MEDS: FAMOTIDINE 20 MG TABLET PO (20:34)
[2022-07-24] VITALS (12 sets, daily range): BP systolic 148–166; BP diastolic 48–67; PULSE 63–75; RESP 16–18; TEMP 36.4–36.9; O2SAT 94–98
[2022-07-24] MEDS: SODIUM CHLORIDE 0.9% IV 1,000 ML 50 ML IV CONT (01:54)
[2022-07-24] MEDS: LEVOTHYROXINE SODIUM 50 MCG TABLET PO (05:50)
[2022-07-24] MEDS: OPTI-GEN TAB 1 TABLET PO (08:09)
[2022-07-24] MEDS: ASPIRIN 81 MG ENTERIC TABLET PO (08:09)
[2022-07-24] MEDS: CLOPIDOGREL BISULFATE 75 MG TABLET PO (08:10)
[2022-07-24] MEDS: amLODIPine BESYLATE 5 MG TABLET PO ×2 (08:10→17:27)
[2022-07-24] MEDS: SIMVASTATIN 20 MG TABLET 80 MG PO (08:10)
[2022-07-24] MEDS: SACCHAROMYCES BOULARDII 250 MG CAPSULE PO (08:10)
[2022-07-24] MEDS: LOSARTAN POTASSIUM 100 MG TABLET PO (08:10)
--- NOTE | 2022-07-24 09:08 | PM.IMPN ---
Progress Note: A&P Assessment and Plan (1) TIA (transient ischemic attack): Code(s): G45.9 - Transient cerebral ischemic attack, unspecified Status: Acute Assessment and Plan: -the patient is awaiting a bed at [facility] she has been accepted and we are just waiting for bed. -Abrupt narrowing at the origin of the left MCA, suspicious for incompletely occlusive embolus/thrombus at this location. High-grade stenoses, approximately 90%, at the bilateral proximal internal carotid arteries. -neurology has been consulted. -the patient has already been on an aspirin and a statin. -add Plavix. -MRI read and carotid Dopplers are pending. Echo has been ordered. (2) Carotid stenosis, bilateral: Code(s): I65.23 - Occlusion and stenosis of bilateral carotid arteries Status: Acute Assessment and Plan: -the patient has 90% occlusion of the internal carotid arteries bilaterally. -the patient has already been on an aspirin and simvastatin. -the patient is awaiting for a bed at [facility] as she has already been accepted. (3) Hyperlipidemia: Code(s): E78.5 - Hyperlipidemia, unspecified Status: Chronic Assessment and Plan: -continue with simvastatin but increase it to 80 mg. (4) Hypertension: Code(s): I10 - Essential (primary) hypertension Status: Chronic Assessment and Plan: -continue with losartan and amlodipine (5) Hypothyroid: Code(s): E03.9 - Hypothyroidism, unspecified Status: Acute Assessment and Plan: -check thyroid level -continue levothyroxine. Plan Impressions Subjective Date/time seen: 07/24/22 09:08 Patient was seen during the morning rounds today. No new overnight complaints. No shortness of breath or chest pain. Mood stable. Review of Systems Review of Systems: All systems reviewed & are unremarkable except as noted in HPI and below Constitutional: Constitutional: Reports as per HPI and Reports no additional constitutional complaints Eyes: Eyes: Reports as per HPI and Reports no additional eye complaints ENT: Reports system reviewed and no additional complaints, except as documented and Reports Normal hearing present Cardiovascular: Cardiovascular: Reports no additional cardiovascular complaints Respiratory: Respiratory: Reports no additional respiratory complaints and Reports no additional respiratory complaints Gastrointestinal: Gastrointestinal: Reports as per HPI and Reports no additional gastrointestinal complaints Musculoskeletal: Musculoskeletal: Reports no additional musculoskeletal complaints Integumentary/Breasts: Skin/Breast: Reports system reviewed and no additional complaints, except as docu and Reports as per HPI Neurologic: Reports system reviewed and no additional complaints, except as documented, Reports as per HPI and Reports Normal hearing present Psychiatric: Psychiatric: Reports no additional psychiatric complaints and Reports as per HPI Endocrine: Endocrine: Reports no additional endocrine complaints Hematologic/Lymphatic: Hematologic/Lymphatic: Reports no additional hematologic/lymphatic complaints Allergic/Immunologic: Allergic/Immunologic: Reports no additional allergic/immunologic complaints Exam Const: General: cooperative, healthy appearing, comfortable, no acute distress, well developed, awake, Physically active, average body habitus and well nourished Nutritional Appearance: average body habitus and well nourished Orientation/consciousness: oriented to person, oriented to place, oriented to time and patient oriented x3 Limitations: no limitations HENMT: Head: normal to inspection, No palpable skull fracture present, normocephalic and atraumatic Ears: external ears normal Face/Nose/Sinus: Normal external nose present and Normal nares present Eyes: General: appearance normal, both eyes and all related structures Alignment and Position: alignment normal Periorbital: periorbital
--- NOTE | 2022-07-24 14:02 | WPDNEUROPN ---
Subjective Date/time seen: 07/24/22 14:02 Interval history: 87 years old right-handed female awaiting the transferred to the [facility] for significant abduct narrowing at the origin of the left MCA 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 Patient is receiving clopidogrel 75 mg daily in addition to simvastatin 80 mg daily aspirin 81 mg daily and also amlodipine 5 mg twice a day on repeat neurological examination the status is completely unchanged. Objective Data Vital Signs Vital Signs: Vital Signs - 24 hr 07/23/22 14:49 07/23/22 16:00 07/23/22 18:35 Temperature 36.7 C 36.9 C Pulse Rate 69 75 72 Respiratory Rate 16 16 Blood Pressure 148/52 H 144/44 H Pulse Oximetry 97 98 Oxygen Delivery 07/23/22 21:15 07/23/22 20:00 07/23/22 22:00 Temperature 36.3 C L Pulse Rate 70 77 Respiratory Rate 18 Blood Pressure 157/44 H Pulse Oximetry 95 Oxygen Delivery Room Air 07/24/22 00:00 07/24/22 02:00 07/24/22 04:00 Temperature 36.9 C Pulse Rate 72 75 73 Respiratory Rate 18 Blood Pressure 166/66 H Pulse Oximetry 97 Oxygen Delivery 07/24/22 05:18 07/24/22 08:16 07/24/22 10:00 Temperature 36.8 C 36.4 C Pulse Rate 70 68 Respiratory Rate 18 16 Blood Pressure 151/48 H 163/56 H Pulse Oximetry 97 98 Oxygen Delivery Room Air Intake/Output Intake/Output: Intake & Output 07/21/22 07/22/22 07/23/22 07/24/22 23:59 23:59 23:59 23:59 Intake Total 520 2716 1979 Balance 520 2716 1979 Meds/Results Medications: Active Medications Generic Name Dose Route Start Last Admin Trade Name Freq PRN Reason Stop Dose Admin Acetaminophen 650 mg 07/22/22 14:26 07/23/22 09:11 Acetaminophen 325 Mg Tablet PO 650 mg Q4H PRN Administration Mild Pain (1-3) or Fever Amlodipine Besylate 5 mg 07/22/22 19:05 07/24/22 08:10 Amlodipine Besylate 5 Mg Tablet PO 5 mg BID CASSIE Administration Aspirin 81 mg 07/23/22 09:00 07/24/22 08:09 Aspirin 81 Mg Enteric Tablet PO 81 mg DAILY CASSIE Administration Clopidogrel Bisulfate 75 mg 07/22/22 18:30 07/24/22 08:10 Clopidogrel Bisulfate 75 Mg Tablet PO 75 mg QAM CASSIE Administration Famotidine 20 mg 07/22/22 21:00 07/23/22 20:34 Famotidine 20 Mg Tablet PO 20 mg HS CASSIE Administration Levothyroxine Sodium 50 mcg 07/23/22 06:30 07/24/22 05:50 Levothyroxine Sodium 50 Mcg Tablet PO 50 mcg DAILY@0630 CASSIE Administration Losartan Potassium 100 mg 07/23/22 09:00 07/24/22 08:10 Losartan Potassium 100 Mg Tablet PO 100 mg QAM CASSIE Administration Multivitamins/Minerals 1 tablet 07/23/22 09:00 07/24/22 08:09 Opti-Gen Tab PO 1 tablet DAILY CASSIE Administration Ondansetron HCl 4 mg 07/22/22 14:26 Ondansetron Inj 4 Mg/2 Ml Vial IV PUSH Q4H PRN Nausea Perflutren Lipid Microsphere 0 ml 07/22/22 14:26 Perflutren Lipid Microspheres 1.5 Ml Vial Diluted To 10 Ml Total Volume IV PUSH 07/24/22 14:29 ONCE PRN adequate visualization Protocol Saccharomyces Boulardii 250 mg 07/23/22 09:00 07/24/22 08:10 Saccharomyces Boulardii 250 Mg Capsule PO 250 mg DAILY CASSIE Administration Simvastatin 80 mg 07/23/22 09:00 07/24/22 08:10 Simvastatin 20 Mg Tablet PO 80 mg QAM CASSIE Administration Radiology Results: ITS Impressions Head CT 07/22/22 12:36 Impression: No significant abnormality seen. Case discussed with Dr. Paredes at 12:40 PM on 07/22/2022. Head/Neck CTA 07/22/22 13:09 Impression: Abrupt narrowing at the origin of the left MCA, suspicious for incompletely occlusive embolus/thrombus at this location. High-grade stenoses, approximately 90%, at the bilateral proximal internal carotid arteries. Findings discussed with Dr. Paredes at 1:20 PM on 07/22/2022. Chest
[2022-07-24] MEDS: FAMOTIDINE 20 MG TABLET PO (20:27)
[2022-07-25] VITALS (11 sets, daily range): BP systolic 140–166; BP diastolic 47–61; PULSE 58–71; RESP 16–20; TEMP 36.3–36.7; O2SAT 95–98
[2022-07-25] MEDS: LEVOTHYROXINE SODIUM 50 MCG TABLET PO (06:12)
[2022-07-25] MEDS: OPTI-GEN TAB 1 TABLET PO (09:03)
[2022-07-25] MEDS: CLOPIDOGREL BISULFATE 75 MG TABLET PO (09:03)
[2022-07-25] MEDS: LOSARTAN POTASSIUM 100 MG TABLET PO (09:03)
[2022-07-25] MEDS: ASPIRIN 81 MG ENTERIC TABLET PO (09:03)
[2022-07-25] MEDS: SIMVASTATIN 20 MG TABLET 80 MG PO (09:03)
[2022-07-25] MEDS: amLODIPine BESYLATE 5 MG TABLET PO ×2 (09:03→16:43)
[2022-07-25] MEDS: SACCHAROMYCES BOULARDII 250 MG CAPSULE PO (09:03)
--- NOTE | 2022-07-25 09:36 | PM.IMPN ---
Progress Note: A&P Assessment and Plan (1) TIA (transient ischemic attack): Code(s): G45.9 - Transient cerebral ischemic attack, unspecified Status: Acute Assessment and Plan: -the patient is awaiting a bed at [facility] she has been accepted and we are just waiting for bed. -Abrupt narrowing at the origin of the left MCA, suspicious for incompletely occlusive embolus/thrombus at this location. High-grade stenoses, approximately 90%, at the bilateral proximal internal carotid arteries. -neurology has been consulted. -the patient has already been on an aspirin and a statin. -add Plavix. -MRI read and carotid Dopplers are pending. Echo has been ordered. (2) Carotid stenosis, bilateral: Code(s): I65.23 - Occlusion and stenosis of bilateral carotid arteries Status: Acute Assessment and Plan: -the patient has 90% occlusion of the internal carotid arteries bilaterally. -the patient has already been on an aspirin and simvastatin. -the patient is awaiting for a bed at [facility] as she has already been accepted. (3) Hyperlipidemia: Code(s): E78.5 - Hyperlipidemia, unspecified Status: Chronic Assessment and Plan: -continue with simvastatin but increase it to 80 mg. (4) Hypertension: Code(s): I10 - Essential (primary) hypertension Status: Chronic Assessment and Plan: -continue with losartan and amlodipine (5) Hypothyroid: Code(s): E03.9 - Hypothyroidism, unspecified Status: Acute Assessment and Plan: -check thyroid level -continue levothyroxine. Plan Impressions Subjective Date/time seen: 07/25/22 09:36 Patient was seen during the morning rounds today. Patient is feeling okay. No new overnight complaints. No shortness of breath or chest pain. No abdominal pain, nausea, no vomiting. Mood stable. Review of Systems Review of Systems: All systems reviewed & are unremarkable except as noted in HPI and below Constitutional: Constitutional: Reports as per HPI and Reports no additional constitutional complaints Eyes: Eyes: Reports as per HPI and Reports no additional eye complaints ENT: Reports system reviewed and no additional complaints, except as documented and Reports Normal hearing present Cardiovascular: Cardiovascular: Reports no additional cardiovascular complaints Respiratory: Respiratory: Reports no additional respiratory complaints and Reports no additional respiratory complaints Gastrointestinal: Gastrointestinal: Reports as per HPI and Reports no additional gastrointestinal complaints Musculoskeletal: Musculoskeletal: Reports no additional musculoskeletal complaints Integumentary/Breasts: Skin/Breast: Reports system reviewed and no additional complaints, except as docu and Reports as per HPI Neurologic: Reports system reviewed and no additional complaints, except as documented, Reports as per HPI and Reports Normal hearing present Psychiatric: Psychiatric: Reports no additional psychiatric complaints and Reports as per HPI Endocrine: Endocrine: Reports no additional endocrine complaints Hematologic/Lymphatic: Hematologic/Lymphatic: Reports no additional hematologic/lymphatic complaints Allergic/Immunologic: Allergic/Immunologic: Reports no additional allergic/immunologic complaints Exam Const: General: cooperative, healthy appearing, comfortable, no acute distress, well developed, awake, Physically active, average body habitus and well nourished Nutritional Appearance: average body habitus and well nourished Orientation/consciousness: oriented to person, oriented to place, oriented to time and patient oriented x3 Limitations: no limitations HENMT: Head: normal to inspection, No palpable skull fracture present, normocephalic and atraumatic Ears: external ears normal Face/Nose/Sinus: Normal external nose present and Normal nares present Eyes: General: appearance normal, both eyes and all related structures Ali
[2022-07-25] MEDS: FAMOTIDINE 20 MG TABLET PO (20:34)
[2022-07-26] VITALS (9 sets, daily range): BP systolic 124–160; BP diastolic 44–55; PULSE 57–72; RESP 18–20; TEMP 36.2–36.4; O2SAT 95–99
[2022-07-26 05:31] LABS: Hematocrit 43.9 % (37.0-47.0); Hemoglobin 14.7 g/dL (12.0-15.0); Mean Corpuscular HGB Conc 33.5 g/dl (32-36); Mean Corpuscular Hemoglobin 30.6 pg (26-34); Mean Corpuscular Volume 91.3 fl (80-100); Mean Platelet Volume 10.1 fl (7.4-10.4); Platelet Count Result 219 k/mm3 (150-375); Red Blood Count 4.81 M/mm3 (4.2-5.4); Red Cell Distribution Width 13.4 % (11.5-14.5); White Blood Count 10.1 K/mm3 (4.5-10.0)
[2022-07-26] MEDS: LEVOTHYROXINE SODIUM 50 MCG TABLET PO (05:32)
[2022-07-26 05:42] LABS: Alanine Aminotransferase 19 U/L (6-35); Albumin Level 4.3 g/dL (3.5-5.1); Alkaline Phosphatase 55 U/L (38-126); Anion Gap 8 mmol/L (8-16); Aspartate Amino Transferase 25 U/L (14-36); Bilirubin,Total 0.9 mg/dL (0.2-1.3); Blood Urea Nitrogen 16 mg/dL (7-17); Calcium 8.9 mg/dL (8.4-10.2); Carbon Dioxide 25 mmol/L (22-30); Chloride 104 mmol/L (98-107); Estimated CRCL calculation 47 ml/min; Estimated Glomerular Filt Rate > 60; Glucose 106 mg/dL (65-110); Potassium 3.8 mmol/L (3.4-5.0); Sodium 137 mmol/L (137-145)
[2022-07-26 08:22] LABS: Lactic Acid Reflex 1.7 mmol/L (0.7-2.0)
[2022-07-26] MEDS: SACCHAROMYCES BOULARDII 250 MG CAPSULE PO (08:37)
[2022-07-26] MEDS: OPTI-GEN TAB 1 TABLET PO (08:38)
[2022-07-26] MEDS: amLODIPine BESYLATE 5 MG TABLET PO ×2 (08:38→17:21)
[2022-07-26] MEDS: ASPIRIN 81 MG ENTERIC TABLET PO (08:38)
[2022-07-26] MEDS: LOSARTAN POTASSIUM 100 MG TABLET PO (08:38)
[2022-07-26] MEDS: SIMVASTATIN 20 MG TABLET 80 MG PO (08:38)
[2022-07-26] MEDS: CLOPIDOGREL BISULFATE 75 MG TABLET PO (08:38)
--- NOTE | 2022-07-26 12:24 | PM.IMPN ---
Progress Note: A&P Assessment and Plan (1) TIA (transient ischemic attack): Code(s): G45.9 - Transient cerebral ischemic attack, unspecified Status: Acute Assessment and Plan: SYMPTOMS OF RESOLVED. Continue aspirin, Plavix, simvastatin Continue PT/OT Awaiting transfer to [facility] (2) Carotid stenosis, bilateral: Code(s): I65.23 - Occlusion and stenosis of bilateral carotid arteries Status: Acute Assessment and Plan: 90% bilateral stenosis awaiting transfer to [facility] for intervention monitor (3) Hyperlipidemia: Code(s): E78.5 - Hyperlipidemia, unspecified Status: Chronic Assessment and Plan: continue home meds (4) Hypertension: Code(s): I10 - Essential (primary) hypertension Status: Chronic Assessment and Plan: continue Amlodipine monitor and adjust accordingly (5) Hypothyroid: Code(s): E03.9 - Hypothyroidism, unspecified Status: Acute Assessment and Plan: Continue home levothyroxine Subjective Date/time seen: 07/26/22 12:24 Interval history: 87 years old right-handed female awaiting the transferred to the [facility] for significant abduct narrowing at the origin of the left MCA 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 Patient is receiving clopidogrel 75 mg daily in addition to simvastatin 80 mg daily aspirin 81 mg daily and also amlodipine 5 mg twice a day on repeat neurological examination the status is completely unchanged. She is awaiting transfer to [facility]. Review of Systems Review of Systems: All systems reviewed & are unremarkable except as noted in HPI and below Constitutional: Constitutional: Reports as per HPI and Reports no additional constitutional complaints Eyes: Eyes: Reports as per HPI and Reports no additional eye complaints ENT: Reports system reviewed and no additional complaints, except as documented Cardiovascular: Cardiovascular: Reports no additional cardiovascular complaints Respiratory: Respiratory: Reports no additional respiratory complaints and Reports no additional respiratory complaints Gastrointestinal: Gastrointestinal: Reports as per HPI and Reports no additional gastrointestinal complaints Musculoskeletal: Musculoskeletal: Reports no additional musculoskeletal complaints Integumentary/Breasts: Skin/Breast: Reports system reviewed and no additional complaints, except as docu and Reports as per HPI Neurologic: Reports system reviewed and no additional complaints, except as documented and Reports as per HPI Psychiatric: Psychiatric: Reports no additional psychiatric complaints and Reports as per HPI Endocrine: Endocrine: Reports no additional endocrine complaints Hematologic/Lymphatic: Hematologic/Lymphatic: Reports no additional hematologic/lymphatic complaints Allergic/Immunologic: Allergic/Immunologic: Reports no additional allergic/immunologic complaints Exam Const: General: comfortable and no acute distress HENMT: Ears: TM's normal bilaterally Mouth: Yes moist mucous membranes Eyes: General: appearance normal, both eyes and all related structures Neck: Other: no palpable masses Resp: Effort & Inspection: normal respiratory effort Auscultation: clear to auscultation bilaterally Cardio: Rate: regular rate Rhythm: regular rhythm GI: GI Palp: Yes Soft to palpation and Yes Firmness to palpation present (GI) Auscultation: normal bowel sounds : Other: N/A Neuro: Motor exam (neuro): 5/5 motor strength present throughout and Normal motor muscle tone present throughout Sensory Exam: normal sensation Extrem: General: normal to inspection Psych: Mental Status: mental status grossly normal Objective Data Vital Signs Vital Signs: Vital Signs - 24 hr 07/25/22 14:00 07/25/22 16:00 07/25/22 18:00 Temper
[2022-07-26] MEDS: FAMOTIDINE 20 MG TABLET PO (20:16)
[2022-07-27] VITALS (11 sets, daily range): BP systolic 125–153; BP diastolic 50–67; PULSE 61–69; RESP 16–20; TEMP 36.2–36.8; O2SAT 94–99
[2022-07-27] MEDS: LEVOTHYROXINE SODIUM 50 MCG TABLET PO (05:37)
[2022-07-27] MEDS: amLODIPine BESYLATE 5 MG TABLET PO ×2 (08:15→18:01)
[2022-07-27] MEDS: LOSARTAN POTASSIUM 100 MG TABLET PO (08:15)
[2022-07-27] MEDS: ASPIRIN 81 MG ENTERIC TABLET PO (08:15)
[2022-07-27] MEDS: SIMVASTATIN 20 MG TABLET 80 MG PO (08:15)
[2022-07-27] MEDS: CLOPIDOGREL BISULFATE 75 MG TABLET PO (08:15)
[2022-07-27] MEDS: SACCHAROMYCES BOULARDII 250 MG CAPSULE PO (08:16)
[2022-07-27] MEDS: OPTI-GEN TAB 1 TABLET PO (08:16)
--- NOTE | 2022-07-27 14:06 | PM.IMPN ---
Progress Note: A&P Assessment and Plan (1) TIA (transient ischemic attack): Code(s): G45.9 - Transient cerebral ischemic attack, unspecified Status: Acute Assessment and Plan: SYMPTOMS OF RESOLVED. Continue aspirin, Plavix, simvastatin Continue PT/OT Awaiting transfer to [facility] (2) Carotid stenosis, bilateral: Code(s): I65.23 - Occlusion and stenosis of bilateral carotid arteries Status: Acute Assessment and Plan: 90% bilateral stenosis awaiting transfer to [facility] for intervention monitor (3) Hyperlipidemia: Code(s): E78.5 - Hyperlipidemia, unspecified Status: Chronic Assessment and Plan: continue home meds (4) Hypertension: Code(s): I10 - Essential (primary) hypertension Status: Chronic Assessment and Plan: continue Amlodipine monitor and adjust accordingly (5) Hypothyroid: Code(s): E03.9 - Hypothyroidism, unspecified Status: Acute Assessment and Plan: Continue home levothyroxine Subjective Date/time seen: 07/27/22 14:06 Interval history: 87 years old right-handed female awaiting the transferred to the [facility] for significant abduct narrowing at the origin of the left MCA 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 Patient is receiving clopidogrel 75 mg daily in addition to simvastatin 80 mg daily aspirin 81 mg daily and also amlodipine 5 mg twice a day on repeat neurological examination the status is completely unchanged. She is awaiting transfer to [facility]. Review of Systems Review of Systems: All systems reviewed & are unremarkable except as noted in HPI and below Constitutional: Constitutional: Reports as per HPI and Reports no additional constitutional complaints Eyes: Eyes: Reports as per HPI and Reports no additional eye complaints ENT: Reports system reviewed and no additional complaints, except as documented Cardiovascular: Cardiovascular: Reports no additional cardiovascular complaints Respiratory: Respiratory: Reports no additional respiratory complaints and Reports no additional respiratory complaints Gastrointestinal: Gastrointestinal: Reports as per HPI and Reports no additional gastrointestinal complaints Musculoskeletal: Musculoskeletal: Reports no additional musculoskeletal complaints Integumentary/Breasts: Skin/Breast: Reports system reviewed and no additional complaints, except as docu and Reports as per HPI Neurologic: Reports system reviewed and no additional complaints, except as documented and Reports as per HPI Psychiatric: Psychiatric: Reports no additional psychiatric complaints and Reports as per HPI Endocrine: Endocrine: Reports no additional endocrine complaints Hematologic/Lymphatic: Hematologic/Lymphatic: Reports no additional hematologic/lymphatic complaints Allergic/Immunologic: Allergic/Immunologic: Reports no additional allergic/immunologic complaints Exam Const: General: comfortable and no acute distress HENMT: Ears: TM's normal bilaterally Mouth: Yes moist mucous membranes Eyes: General: appearance normal, both eyes and all related structures Neck: Other: no palpable masses Resp: Effort & Inspection: normal respiratory effort Auscultation: clear to auscultation bilaterally Cardio: Rate: regular rate Rhythm: regular rhythm GI: Auscultation: normal bowel sounds : Other: N/A Neuro: Motor exam (neuro): 5/5 motor strength present throughout and Normal motor muscle tone present throughout Sensory Exam: normal sensation Extrem: General: normal to inspection Psych: Mental Status: mental status grossly normal Objective Data Vital Signs Vital Signs: Vital Signs - 24 hr 07/26/22 16:00 07/26/22 20:00 07/26/22 22:07 Temperature 97.2 F L Pulse Rate 65 71 Respiratory Rate 18 Blood Pressure
[2022-07-27] MEDS: FAMOTIDINE 20 MG TABLET PO (20:29)
[2022-07-28] VITALS (9 sets, daily range): BP systolic 128–134; BP diastolic 52–70; PULSE 55–74; RESP 14–18; TEMP 36.4–36.8; O2SAT 94–97
[2022-07-28] MEDS: LEVOTHYROXINE SODIUM 50 MCG TABLET PO (05:52)
[2022-07-28] MEDS: SACCHAROMYCES BOULARDII 250 MG CAPSULE PO (08:12)
[2022-07-28] MEDS: LOSARTAN POTASSIUM 100 MG TABLET PO (08:12)
[2022-07-28] MEDS: ASPIRIN 81 MG ENTERIC TABLET PO (08:12)
[2022-07-28] MEDS: SIMVASTATIN 20 MG TABLET 80 MG PO (08:12)
[2022-07-28] MEDS: OPTI-GEN TAB 1 TABLET PO (08:12)
[2022-07-28] MEDS: CLOPIDOGREL BISULFATE 75 MG TABLET PO (08:12)
[2022-07-28] MEDS: amLODIPine BESYLATE 5 MG TABLET PO ×2 (08:13→16:53)
--- NOTE | 2022-07-28 17:05 | PM.IMPN ---
Progress Note: A&P Assessment and Plan (1) TIA (transient ischemic attack): Code(s): G45.9 - Transient cerebral ischemic attack, unspecified Status: Acute Assessment and Plan: SYMPTOMS OF RESOLVED. Continue aspirin, Plavix, simvastatin Continue PT/OT Awaiting transfer to [facility] 07/29/2022 interval history, patient remains clinically stable has no new complaints, waiting for transferred to [facility] in [place], [place], if we do not hear from the [facility], will try transferring to [facility] in [place], [place], (2) Carotid stenosis, bilateral: Code(s): I65.23 - Occlusion and stenosis of bilateral carotid arteries Status: Acute Assessment and Plan: 90% bilateral stenosis awaiting transfer to [facility] for intervention monitor (3) Hyperlipidemia: Code(s): E78.5 - Hyperlipidemia, unspecified Status: Chronic Assessment and Plan: continue home meds (4) Hypertension: Code(s): I10 - Essential (primary) hypertension Status: Chronic Assessment and Plan: continue Amlodipine monitor and adjust accordingly (5) Hypothyroid: Code(s): E03.9 - Hypothyroidism, unspecified Status: Acute Assessment and Plan: Continue home levothyroxine Subjective Date/time seen: 07/28/22 17:05 Interval history: 87 years old right-handed female awaiting the transferred to the [facility] for significant abduct narrowing at the origin of the left MCA 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 Patient is receiving clopidogrel 75 mg daily in addition to simvastatin 80 mg daily aspirin 81 mg daily and also amlodipine 5 mg twice a day on repeat neurological examination the status is completely unchanged. She is awaiting transfer to [facility]. 07/29/2022 interval history, patient remains clinically stable has no new complaints, waiting for transferred to [facility] in [place], [place], if we do not hear from the [facility], will try transferring to [facility] in [place], [place], Review of Systems Review of Systems: All systems reviewed & are unremarkable except as noted in HPI and below Exam Narrative: Patient is comfortable, NAD HEENT: eyes are clear and none icteric LUNGS:CTA HEART: RR S1S2 ABD: BS+, Soft and nontender Lower extremities: no edema SKIN: nonjaundiced Neuro: grossly intact. Objective Data Vital Signs Vital Signs: Vital Signs - 24 hr 07/27/22 20:00 07/27/22 21:39 07/27/22 20:00 Temperature 98.2 F Pulse Rate 61 64 Respiratory Rate 18 Blood Pressure 153/50 H Pulse Oximetry 98 Oxygen Delivery Room Air 07/28/22 00:00 07/28/22 05:30 07/28/22 04:00 Temperature 98.1 F Pulse Rate 67 58 L 55 L Respiratory Rate 18 Blood Pressure 134/52 L Pulse Oximetry 94 Oxygen Delivery 07/28/22 08:15 07/28/22 08:15 07/28/22 12:00 Temperature Pulse Rate 70 61 Respiratory Rate Blood Pressure Pulse Oximetry Oxygen Delivery Room Air 07/28/22 14:35 07/28/22 16:00 Temperature 97.5 F L Pulse Rate 62 74 Respiratory Rate 14 Blood Pressure 128/61 Pulse Oximetry 96 Oxygen Delivery Intake/Output Intake/Output: Intake & Output 07/25/22 07/26/22 07/27/22 07/28/22 23:59 23:59 23:59 23:59 Intake Total 2220 1820 1850 850 Output Total 1900 1100 1400 800 Balance 320 720 450 50 Meds/Results Medications: Active Medications Generic Name Dose Route Start Last Admin Trade Name Freq PRN Reason Stop Dose Admin Acetaminophen 650 mg 07/22/22 14:26 07/23/22 09:11 Acetaminophen 325 Mg Tablet PO 650 mg Q4H PRN Administration Mild Pain (1-3) or Fever Amlodipine Besylate 5 mg 07/22/22 19:05 07/28/22 16:53 Amlodipine Besylate 5 Mg Tablet PO 5 mg BID CASSIE Administration Aspirin 81
[2022-07-28] MEDS: FAMOTIDINE 20 MG TABLET PO (21:36)
[2022-07-29] VITALS (10 sets, daily range): BP systolic 132–150; BP diastolic 46–62; PULSE 56–81; RESP 16–17; TEMP 36.4–36.7; O2SAT 97–99
[2022-07-29 05:23] LABS: Hematocrit 43.4 % (37.0-47.0); Hemoglobin 14.8 g/dL (12.0-15.0); Mean Corpuscular HGB Conc 34.1 g/dl (32-36); Mean Corpuscular Hemoglobin 30.6 pg (26-34); Mean Corpuscular Volume 89.7 fl (80-100); Mean Platelet Volume 10.4 fl (7.4-10.4); Platelet Count Result 240 k/mm3 (150-375); Red Blood Count 4.84 M/mm3 (4.2-5.4); Red Cell Distribution Width 13.1 % (11.5-14.5); White Blood Count 7.4 K/mm3 (4.5-10.0)
[2022-07-29 05:36] LABS: Anion Gap 8 mmol/L (8-16); Blood Urea Nitrogen 15 mg/dL (7-17); Carbon Dioxide 28 mmol/L (22-30); Chloride 105 mmol/L (98-107); Estimated CRCL calculation 41 ml/min; Estimated Glomerular Filt Rate > 60; Glucose 100 mg/dL (65-110); Potassium 3.9 mmol/L (3.4-5.0); Sodium 141 mmol/L (137-145)
[2022-07-29] MEDS: LEVOTHYROXINE SODIUM 50 MCG TABLET PO (06:27)
[2022-07-29] MEDS: SIMVASTATIN 20 MG TABLET 80 MG PO (07:59)
[2022-07-29] MEDS: SACCHAROMYCES BOULARDII 250 MG CAPSULE PO (07:59)
[2022-07-29] MEDS: OPTI-GEN TAB 1 TABLET PO (07:59)
[2022-07-29] MEDS: CLOPIDOGREL BISULFATE 75 MG TABLET PO (07:59)
[2022-07-29] MEDS: amLODIPine BESYLATE 5 MG TABLET PO ×2 (07:59→16:24)
[2022-07-29] MEDS: LOSARTAN POTASSIUM 100 MG TABLET PO (07:59)
[2022-07-29] MEDS: ASPIRIN 81 MG ENTERIC TABLET PO (08:00)
--- NOTE | 2022-07-29 13:29 | PM.IMPN ---
Progress Note: A&P Assessment and Plan (1) TIA (transient ischemic attack): Code(s): G45.9 - Transient cerebral ischemic attack, unspecified Status: Acute Assessment and Plan: SYMPTOMS OF RESOLVED. Continue aspirin, Plavix, simvastatin Continue PT/OT Awaiting transfer to [facility] Abdominal bloating 07/29/2022? interval history,?patient remains clinically? stable has no new complaints, ? waiting for transferred to [facility]? hospital in? [place], [place],? if we do not hear from the [facility], will? try transferring to [facility] in [place], [place], I did call [facility] in [facility], there are no bed avaiable, (2) Carotid stenosis, bilateral: Code(s): I65.23 - Occlusion and stenosis of bilateral carotid arteries Status: Acute Assessment and Plan: 90% bilateral stenosis awaiting transfer to [facility] for intervention monitor (3) Hyperlipidemia: Code(s): E78.5 - Hyperlipidemia, unspecified Status: Chronic Assessment and Plan: continue home meds (4) Hypertension: Code(s): I10 - Essential (primary) hypertension Status: Chronic Assessment and Plan: continue Amlodipine monitor and adjust accordingly (5) Hypothyroid: Code(s): E03.9 - Hypothyroidism, unspecified Status: Acute Assessment and Plan: Continue home levothyroxine Subjective Date/time seen: 07/29/22 13:29 Interval history: 87 years old right-handed female awaiting the transferred to the [facility] for significant abduct narrowing at the origin of the left MCA 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 Patient is receiving clopidogrel 75 mg daily in addition to simvastatin 80 mg daily aspirin 81 mg daily and also amlodipine 5 mg twice a day on repeat neurological examination the status is completely unchanged. She is awaiting transfer to [facility]. Abdominal bloating 07/29/2022? interval history,?patient remains clinically? stable has no new complaints, ? waiting for transferred to [facility]? hospital in? [place], [place],? if we do not hear from the [facility], will? try transferring to [facility] in [place], [place], I did call [facility] in [facility], there are no bed avaiable, Review of Systems Review of Systems: All systems reviewed & are unremarkable except as noted in HPI and below Exam Narrative: Patient is comfortable, NAD HEENT: eyes are clear and none icteric LUNGS:CTA HEART: RR S1S2 ABD: BS+, Soft and nontender Lower extremities: no edema SKIN: nonjaundiced Neuro: grossly intact. Objective Data Vital Signs Vital Signs: Vital Signs - 24 hr 07/28/22 14:35 07/28/22 16:00 07/28/22 21:37 Temperature 97.5 F L 98.2 F Pulse Rate 62 74 61 Respiratory Rate 14 18 Blood Pressure 128/61 129/70 Pulse Oximetry 96 97 Oxygen Delivery 07/28/22 20:00 07/29/22 00:00 07/29/22 04:00 Temperature Pulse Rate 64 69 56 L Respiratory Rate Blood Pressure Pulse Oximetry Oxygen Delivery 07/29/22 05:06 07/29/22 08:00 07/29/22 08:00 Temperature 98.0 F Pulse Rate 59 L 56 L Respiratory Rate 17 Blood Pressure 146/46 H Pulse Oximetry 97 Oxygen Delivery Room Air Intake/Output Intake/Output: Intake & Output 07/26/22 07/27/22 07/28/22 07/29/22 23:59 23:59 23:59 23:59 Intake Total 1820 1850 1490 490 Output Total 1100 1400 1600 Balance 720 450 -110 490 Meds/Results Medications: Active Medications Generic Name Dose Route Start Last Admin Trade Name Freq PRN Reason Stop Dose Admin Acetaminophen 650 mg 07/22/22 14:26 07/23/22 09:11 Acetaminophen 325 Mg Tablet PO 650 mg Q4H PRN Administration Mild Pain (1-3) or Fever Amlodipine Besylate 5 mg 07/22/22 19:05 07/29/22 07:59 Amlodipine Besylate 5 Mg Tablet PO 5 mg BID CASSIE Adminis
[2022-07-29] MEDS: FAMOTIDINE 20 MG TABLET PO (20:22)
[2022-07-30] VITALS: PULSE 70
[2022-07-30 04:00] VITALS: PULSE 56
[2022-07-30 05:19] VITALS: BP 144/61; PULSE 61; RESP 16; TEMP 36.5; O2SAT 96
[2022-07-30] MEDS: LEVOTHYROXINE SODIUM 50 MCG TABLET PO (05:39)
[2022-07-30 06:17] LABS: Hematocrit 41.9 % (37.0-47.0); Hemoglobin 13.9 g/dL (12.0-15.0); Mean Corpuscular HGB Conc 33.2 g/dl (32-36); Mean Corpuscular Volume 93.5 fl (80-100); Mean Platelet Volume 10.7 fl (7.4-10.4); Platelet Count Result 227 k/mm3 (150-375); Red Blood Count 4.48 M/mm3 (4.2-5.4); Red Cell Distribution Width 13.2 % (11.5-14.5); White Blood Count 7.3 K/mm3 (4.5-10.0)
[2022-07-30 06:34] LABS: Anion Gap 7 mmol/L (8-16); Blood Urea Nitrogen 15 mg/dL (7-17); Calcium 8.5 mg/dL (8.4-10.2); Carbon Dioxide 25 mmol/L (22-30); Chloride 104 mmol/L (98-107); Estimated CRCL calculation 47 ml/min; Estimated Glomerular Filt Rate > 60; Glucose 106 mg/dL (65-110); Potassium 3.7 mmol/L (3.4-5.0); Sodium 136 mmol/L (137-145)
--- NOTE | 2022-07-30 07:34 | PCNWS ---
Weekly nutritional screen. Patient is tolerating current diet with adequate intake. No weight loss reported. No nutritional needs at this time.
[2022-07-30 08:01] VITALS: PULSE 57; PULSE 61; RESP 16; O2SAT 96
[2022-07-30] MEDS: ASPIRIN 81 MG ENTERIC TABLET PO (09:23)
[2022-07-30] MEDS: LOSARTAN POTASSIUM 100 MG TABLET PO (09:23)
[2022-07-30] MEDS: CLOPIDOGREL BISULFATE 75 MG TABLET PO (09:23)
[2022-07-30] MEDS: OPTI-GEN TAB 1 TABLET PO (09:23)
[2022-07-30] MEDS: SIMVASTATIN 20 MG TABLET 80 MG PO (09:23)
[2022-07-30] MEDS: amLODIPine BESYLATE 5 MG TABLET PO (09:23)
[2022-07-30] MEDS: SACCHAROMYCES BOULARDII 250 MG CAPSULE PO (09:23)
[2022-07-30 12:04] VITALS: PULSE 66
--- NOTE | 2022-07-30 12:14 | PM.DS ---
DS: Admitting Diagnosis Discharge Date 07/30/2022 Admitting Diagnosis Neurological symptoms DS: Discharge Diagnosis Discharge Diagnosis (1) TIA (transient ischemic attack): Code(s): G45.9 - Transient cerebral ischemic attack, unspecified Status: Acute Assessment and Plan: SYMPTOMS OF RESOLVED. Continue aspirin, Plavix, simvastatin Continue PT/OT Awaiting transfer to [facility] Abdominal bloating 07/29/2022? interval history,?patient remains clinically? stable has no new complaints, ? waiting for transferred to [facility]? hospital in? [place], [place],? if we do not hear from the [facility], will? try transferring to [facility] in [place], [place], I did call [facility] hospital in [facility], there are no bed avaiable, (2) Carotid stenosis, bilateral: Code(s): I65.23 - Occlusion and stenosis of bilateral carotid arteries Status: Acute Assessment and Plan: 90% bilateral stenosis awaiting transfer to [facility] for intervention monitor (3) Hyperlipidemia: Code(s): E78.5 - Hyperlipidemia, unspecified Status: Chronic Assessment and Plan: continue home meds (4) Hypertension: Code(s): I10 - Essential (primary) hypertension Status: Chronic Assessment and Plan: continue Amlodipine monitor and adjust accordingly (5) Hypothyroid: Code(s): E03.9 - Hypothyroidism, unspecified Status: Acute Assessment and Plan: Continue home levothyroxine DS: Summary Hospital Course Reason for hospitalization: Chief Complaint: Neurological symptoms Narrative: This is an 87-year-old female patient who has a history of paroxysmal atrial fibrillation and does not appear to be on any anticoagulation.? She also has hypertension and hyperlipidemia.? The patient had a sudden onset of vision loss on the right side approximately 11:45 a.m..? The patient's symptoms lasted for approximately 15 minutes and then subsided.? The patient was also was also complaining of tingling sensation on the right side of the upper extremity and lower extremity.? She denies any weakness.? She denies any headache or chest pain.? All of her symptoms have subsided upon arrival to the emergency room.? The patient was talking in full sentences able to answer questions without difficulty.? The patient has been on an aspirin daily.? Chest x-ray was read as clear lungs.? Head neck CTA was read as the following abrupt narrowing at the origin of the left MCA, suspicious for incompletely occlusive embolus/thrombus at this location. High-grade stenoses, approximately 90%, at the bilateral proximal internal carotid arteries.? Head CT was read as no significant abnormality seen.? ED provider stated that he did call [facility] and they accepted the patient however they have no beds at this time.? Neurology here has been consulted and he agrees to consult on the patient.? The patient is being admitted to inpatient status well waiting a bed at [facility].? The date of service is 07/22/2022. Hospital Course: 07/29/2022? interval history,?patient remains clinically? stable has no new complaints, ? waiting for transferred to [facility]? hospital in? [place], [place],? if we do not hear from the [facility], will? try transferring to [facility] in [place], [place] I did try to transfer patient to [facility] in [facility], today I spoke with Dr. Harris and suggested since patient is on plavic and aspirin, patient can be discharged and follow up in the clinic for outpatient referral Time Spent with Patient Time attestation: Total time spent providing and/or coordinating discharge services: Exam Narrative: Patient is comfortable, NAD HEENT: eyes are clear and none icteric LUNGS:CTA HEART: RR S1S2 ABD: BS+, Soft and nontender Lower extremities: no edema SKIN: nonjaundiced Neuro: grossly intact. DS: Data Data Completed and Pending Labs on day of discharge: Labs from last 24 hours 07/30/22 07/30/22 05:39 05:39 WBC 7.3 RB
== END 2022-07-30 14:10 | disposition home or self-care (01) | DRG 68 ==
LOC: ANHED 13:48 → ANH2MED 15:42
PROVIDERS: Emergency Medicine; Internal Medicine; Nurse Practitioner; Admitting Provider Internal Medicine; Emergency Provider Family Medicine; Visit Provider Family Medicine
DX: I65.23 Occlusion and stenosis of bilateral carotid arteries (principal); I10 Essential (primary) hypertension; E78.5 Hyperlipidemia, unspecified; K21.9 Gastro-esophageal reflux disease without esophagitis; E03.9 Hypothyroidism, unspecified; Z20.822 Contact with and (suspected) exposure to COVID-19; Z75.1 Person awaiting admission to adequate facility elsewhere; Z87.891 Personal history of nicotine dependence; Z79.82 Long term (current) use of aspirin; Z79.899 Other long term (current) drug therapy; Z88.2 Allergy status to sulfonamides; Z83.3 Family history of diabetes mellitus; Z82.49 Family history of ischemic heart disease and other diseases of the circulatory system
CPT/HCPCS: 36415; 70450; 70496; 70498; 70553; 71045; 80048; 80053; 82948; 83605; 83735; 84443; 84484; 85025; 85027; 85610; 85730; 87636; 93005; 93306; 93880; 97161; 99285; A9270; A9577; J7030; Q9967

== ENCOUNTER 2022-10-16 09:10 | Emergency (ER) | payer MEDICARE, SELFPAY ==
[2022-10-16 09:20] VITALS: BP 120/55; PULSE 63; RESP 16; TEMP 37; O2SAT 98
--- NOTE | 2022-10-16 10:10 | ED.URI ---
HPI - URI/Sore Throat General Chief Complaint: Upper Respiratory Infection Stated Complaint: uri Time Seen by Provider: 10/16/22 10:10 Source: patient Mode of arrival: ambulatory Limitations: no limitations History of Present Illness HPI Narrative: 87 yo F presents with with c/o cough for 3 days. afebrile. Cristo SOB. Progressively getting worse. Denies SOB/CP. Not taking any OTC meds to treat symptoms. Reports cough is dry. States chest feels congested but nothing coming up. All systems reviewed and negative except as noted above. Related Data Home Medications Medication Instructions Recorded Confirmed amlodipine 5 mg tablet 5 mg PO BID 06/08/19 10/16/22 levothyroxine 50 mcg tablet 50 mcg PO QAM 06/08/19 10/16/22 losartan 100 mg tablet 100 mg PO QAM 06/08/19 10/16/22 xjvalhts-ach-hvapz acid 500 1 tablet PO DAILY 06/08/19 10/16/22 mcg-lycopene 300 mcg-lutein 250 mcg tablet (Complete Multi 50+) aspirin 81 mg tablet,delayed 81 mg PO DAILY 06/09/21 10/16/22 release famotidine 20 mg tablet 20 mg PO HS 06/09/21 10/16/22 atorvastatin 80 mg tablet 80 mg PO HS 10/16/22 10/16/22 carvedilol 3.125 mg tablet 3.125 mg PO BID 10/16/22 10/16/22 clobetasol 0.05 % topical cream 1 applic topical DAILY 10/16/22 10/16/22 clonidine HCl 0.2 mg tablet 0.2 mg PO BID 10/16/22 10/16/22 hydralazine 50 mg tablet 50 mg PO TID 10/16/22 10/16/22 trazodone 50 mg tablet 50 mg PO HS 10/16/22 10/16/22 Allergies Allergy/AdvReac Type Severity Reaction Status Date / Time Sulfa (Sulfonamide Allergy Unknown Vomiting, Verified 10/16/22 09:42 Antibiotics) DIARRHEA Review of Systems Review of Systems: CONSTITUTIONAL: Denies fever, chills, or sweats. EYES: Denies visual changes, redness, or discharge. ENT: Denies rhinorrhea, congestion, sore throat, or otalgia. CARDIOVASCULAR: Denies chest pain, palpitations, or edema. RESPIRATORY: Reports cough and chest congestion. Denies shortness of breath. GASTROINTESTINAL: Denies abdominal pain, nausea, vomiting, or diarrhea. GENITOURINARY: Denies dysuria or hematuria. SKIN: Denies rash or itching. MUSCULOSKELETAL: Denies back pain, joint pain, or myalgia. NEUROLOGIC: Denies headache, numbness, or weakness. PSYCHIATRIC: Denies anxiety or depression. All other systems reviewed are negative, except as documented in HPI. [facility] Past Medical History Medical History (Updated 10/16/22 @ 10:15 by Fanta Orantes NP) GERD (gastroesophageal reflux disease) Hyperlipidemia Hypertension Hypothyroid Kidney stones Skin cancer Surgical History Surgical History (Updated 07/22/22 @ 18:18 by Brooke Burr NP) H/O cataract extraction H/O colonoscopy H/O shoulder surgery H/O: hysterectomy History of extraction of renal calculus History of thyroidectomy S/P bladder repair Family History Family History Sibling Hypertension Family history of diabetes mellitus in first degree relative Family history of coronary artery disease Mother Family history of congenital heart disease, Onset Age: 84 Patient's mother is Social History Social History (Updated 07/22/22 @ 18:21 by Brooke Burr NP) Social History: The patient is to richa. She has 2 biological children and 4 step. She retired from [employer]. She has worked and many retail sales. The patient is a nonsmoker. She does not use any alcohol marijuana or illicit drugs. Code status full code Smoking packs per day: 1 Smoking cigarettes per day: 20.0 Smoking status: Never smoker Tobacco type: cigarettes Second hand tobacco smoke exposure: No Smoking end date: 02/06/1960 Additional smoking assessment comments: 1 PACK/WEEK X 10 YRS Alcohol intake: never Substance use: never Substance use type: does not use Lack of Transportation: No Lack of Food: Never True Current Housing: I Have Housing Concerned About Future Housing: No
== END 2022-10-16 10:22 | disposition home or self-care (01) ==
PROVIDERS: Emergency Provider Nurse Practitioner Family
DX: R05.9 Cough, unspecified (principal); Z87.891 Personal history of nicotine dependence; K21.9 Gastro-esophageal reflux disease without esophagitis; E78.5 Hyperlipidemia, unspecified; I10 Essential (primary) hypertension; E89.0 Postprocedural hypothyroidism; Z85.828 Personal history of other malignant neoplasm of skin
CPT/HCPCS: 99213; G0463

== ENCOUNTER 2023-12-03 17:04 | Observation (INO) | payer MEDICARE, SELFPAY ==
[2023-12-03] VITALS (9 sets, daily range): BP systolic 146–177; BP diastolic 52–98; PULSE 68–77; RESP 15–22; TEMP 36.6; O2SAT 92–100
--- NOTE | ~2023-12-03 | CT_ITS ---
EXAMINATION: CTA chest PE protocol DATE: 12/03/2023 20:41 INDICATION: Chest pain radiating to back TECHNIQUE: Computed tomography angiography (CTA) of the chest was performed with 100 mL Omnipaque-350 intravenous contrast timed to evaluate the pulmonary arteries. Coronal maximum intensity projection 3D-reconstructions were created by the technologist. The dose-length product (DLP) was 224.47 mGy-cm. Automated exposure control and iterative reconstruction technique were employed. COMPARISON: X-ray chest, same date. FINDINGS: Lung parenchyma and airways: Biapical pleural scarring. Senescent changes. Minimal dependent scarring /atelectasis. Airways are patent.. Pleura: Unremarkable. Thoracic inlet, axillae and chest wall: Multiple right thyroid lobe hypodensities measuring up to 1.5 cm. Thoracic aorta: No significant dilation. No dissection. Moderate arch calcification. Mediastinum: Normal. Heart and pericardium: Normal. Coronary artery calcifications: Moderate. Upper abdomen: No significant finding. Bones: No acute osseous finding. Pulmonary arteries: Study quality: Adequate. No pulmonary emboli detected. IMPRESSION: No CT evidence of acute pulmonary embolus. No acute process detected in the chest. Multiple right thyroid lobe hypodensities measuring up to 1.5 cm. Recommend nonemergent, outpatient t hyroid ultrasound for further characterization. Reviewed, dictated and finalized at location K. IMPRESSION: No CT evidence of acute pulmonary embolus. No acute process detected in the chest. Multiple right thyroid lobe hypodensities measuring up to 1.5 cm. Recommend non emergent, outpatient thyroid ultrasound for further characterization.
--- NOTE | ~2023-12-03 | XR_ITS ---
EXAMINATION: XR chest 2V Exam Date/Time: 12/03/2023 17:18 CDT HISTORY: chest pain, shortness of breath Comparison: 07/22/2022. RESULT: Lines, tubes, and devices: None. Lungs and pleura: Clear. Cardiomediastinal silhouette: Stable. Other: No acute osseous or upper abdominal finding. IMPRESSION: No acute cardiopulmonary process. Reviewed, dictated and finalized at location K.
--- NOTE | 2023-12-03 17:06 | ECG_ITS ---
SEE SCANNED COPY FOR CONFIRMED REPORT MTDD
[2023-12-03 18:09] LABS: Basophils Absolute Auto 0.1 K/mm3 (0.0-0.1); Basophils Percent Auto 0.5 % (0.2-1.2); Eosinophils Absolute Auto 0.2 K/mm3 (0-0.3); Eosinophils Percent Auto 0.8 % (0-4.4); Hematocrit 40.1 % (37.0-47.0); Immature Granulocyte Absolute 0.05 K/mm3 (0.00-0.031); Immature Granulocyte Percent A 0.3 % (0-0.5); Lymphocytes Absolute Auto 2.13 K/mm3 (0.9-3.2); Lymphocytes Percent Auto 11.3 % (18.3-44.2); Mean Corpuscular HGB Conc 34.9 g/dl (32-36); Mean Corpuscular Hemoglobin 30.8 pg (26-34); Mean Corpuscular Volume 88.3 fl (80-100); Mean Platelet Volume 10.3 fl (7.4-10.4); Monocytes Absolute Auto 1.8 K/mm3 (0.1-0.6); Monocytes Percent Auto 9.5 % (2.6-8.5); Neutrophils Absolute Auto 14.6 K/mm3 (1.3-6.7); Neutrophils Percent Auto 77.6 % (45.5-73.1); Platelet Count Result 230 k/mm3 (150-375); Red Blood Count 4.54 M/mm3 (4.2-5.4); Red Cell Distribution Width 13.8 % (11.5-14.5); White Blood Count 18.8 K/mm3 (4.5-10.0)
[2023-12-03 18:19] LABS: INR 0.9; Prothrombin Time 12.5 Seconds (11.1-14.7)
[2023-12-03 18:20] LABS: Partial Thromboplastin Time 24.5 Seconds (22.3-36.8)
[2023-12-03 18:22] LABS: Alanine Aminotransferase 22 U/L (6-35); Albumin Level 4.8 g/dL (3.5-5.1); Alkaline Phosphatase 70 U/L (38-126); Anion Gap 13 mmol/L (4-12); Aspartate Amino Transferase 28 U/L (14-36); Bilirubin,Total 1.3 mg/dL (0.2-1.3); Blood Urea Nitrogen 17 mg/dL (7-17); Calcium 9.8 mg/dL (8.4-10.2); Carbon Dioxide 22 mmol/L (22-30); Chloride 105 mmol/L (98-107); Estimated Glomerular Filt Rate 52; Glucose 165 mg/dL (65-110); Lipase 65 U/L (23-300); Potassium 3.6 mmol/L (3.4-5.0); Sodium 140 mmol/L (137-145)
[2023-12-03 18:39] LABS: Troponin I < 0.012 ng/mL (0.000-0.034)
[2023-12-03] MEDS: ACETAMINOPHEN 500 MG TABLET 1000 MG PO (19:42)
--- NOTE | 2023-12-03 19:52 | ED.GENADULT ---
HPI - General Adult General Chief complaint: Chest Pain Stated complaint: chest pain/back pain Time Seen by Provider: 12/03/23 19:14 History of Present Illness HPI narrative: This is an 88-year-old female presenting ED with chief complaint of chest and back pain. For PT 4:00 p.m. today while she was watching TV she developed a sharp/dull pressure center of her chest that the center of her back. Pain is improving. She has never experienced this before there are no exacerbating alleviating factors. It is associated with shortness of breath and fatigue. She denies fevers cough abdominal pain or urinary symptoms. Related Data Home Medications Medication Instructions Recorded Confirmed amlodipine 5 mg tablet 5 mg PO BID 06/08/19 10/16/22 levothyroxine 50 mcg tablet 50 mcg PO QAM 06/08/19 10/16/22 losartan 100 mg tablet 100 mg PO QAM 06/08/19 10/16/22 zplywhbv-veg-oqrsq acid 500 1 tablet PO DAILY 06/08/19 10/16/22 mcg-lycopene 300 mcg-lutein 250 mcg tablet (Complete Multi 50+) aspirin 81 mg tablet,delayed 81 mg PO DAILY 06/09/21 10/16/22 release famotidine 20 mg tablet 20 mg PO HS 06/09/21 10/16/22 atorvastatin 80 mg tablet 80 mg PO HS 10/16/22 10/16/22 carvedilol 3.125 mg tablet 3.125 mg PO BID 10/16/22 10/16/22 clobetasol 0.05 % topical cream 1 applic topical DAILY 10/16/22 10/16/22 clonidine HCl 0.2 mg tablet 0.2 mg PO BID 10/16/22 10/16/22 hydralazine 50 mg tablet 50 mg PO TID 10/16/22 10/16/22 trazodone 50 mg tablet 50 mg PO HS 10/16/22 10/16/22 Allergies Allergy/AdvReac Type Severity Reaction Status Date / Time Sulfa (Sulfonamide Allergy Unknown Vomiting, Verified 12/03/23 18:26 Antibiotics) DIARRHEA PMFSH Past Medical History Medical History GERD (gastroesophageal reflux disease) Hyperlipidemia Hypertension Hypothyroid Kidney stones Skin cancer Surgical History Surgical History H/O cataract extraction H/O colonoscopy H/O shoulder surgery H/O: hysterectomy History of extraction of renal calculus History of thyroidectomy S/P bladder repair Family History Family History Sibling Hypertension Family history of diabetes mellitus in first degree relative Family history of coronary artery disease Mother Family history of congenital heart disease, Onset Age: 84 Patient's mother is Social History Social History Social History: The patient is to richa. She has 2 biological children and 4 step. She retired from [employer]. She has worked and many retail sales. The patient is a nonsmoker. She does not use any alcohol marijuana or illicit drugs. Code status full code Smoking packs per day: 1 Smoking cigarettes per day: 20.0 Smoking status: Never smoker Tobacco type: cigarettes Second hand tobacco smoke exposure: No Smoking end date: 02/06/1960 Additional smoking assessment comments: 1 PACK/WEEK X 10 YRS Alcohol intake: never Substance use: never Substance use type: does not use Lack of Transportation: No Lack of Food: Never True Current Housing: I Have Housing Concerned About Future Housing: No Difficulty Paying Gas/Electric Bills: No Difficulty Paying for Meds: No Currently Unemployed: No Education: Don't Know Difficulty w/ Childcare or Family Care: No Living arrangements: with family Additional living arrangements comments: HUSB Gender identity (if verbalized by the patient): Female Sexual Orientation (if Verbalized by the Patient): Straight or Heterosexual Spiritual care concerns: No Agree to blood products: Yes Exam Narrative: APPEARANCE: Patient appears tired, Head: atraumatic. EYES: EOMI, NOSE: Atraumatic NECK: Trachea midline RESPIRATORY: Slightly tachypneic, saturating well on
[2023-12-03 20:20] LABS: Bacteria Urine None Seen /hpf; Non Pathogenic Casts 0-2; RBC Urine 0-2 /hpf (0-2); Squamous Epithelial Cell Urine None Seen /hpf (Few)
[2023-12-03 20:26] LABS: Add Urine Microscopic? YES
[2023-12-03 20:28] LABS: Appearance Urine Clear (Clear); Color Urine Yellow (Yellow)
[2023-12-03 20:29] LABS: Bilirubin Urine Negative (Negative); Blood Urine Negative (Negative); Glucose Urine UA Negative (Negative); Ketones Urine Negative (Negative); Leukocyte Esterase Ur Trace LEU/UL (Negative); Nitrate Urine Negative (Negative); Protein Urine Trace mg/dL (Negative); Urobilinogen Urine 0.2 mg/dL (<2.0)
--- NOTE | 2023-12-03 20:47 | ECG_ITS ---
SEE SCANNED COPY FOR CONFIRMED REPORT MTDD
[2023-12-03 21:36] LABS: Troponin I < 0.012 ng/mL (0.000-0.034)
[2023-12-03 21:50] LABS: Influenza A QL RT-PCR Negative (Negative); Influenza B QL RT-PCR Negative (Negative); RSV RNA, RT-PCR Negative (Negative); SARS-CoV-2 RNA PCR Negative (Negative)
[2023-12-03 22:17] LABS: Lactic Acid Reflex 2.9 mmol/L (0.7-2.0)
[2023-12-03] MEDS: PIPERACILLN/TAZ 3.375GM/NS50ML 3.375 GM/50 ML BAG IVPB (23:11)
[2023-12-03] MEDS: SODIUM CHLORIDE 0.9% IV 2,000 ML 999 ML IV CONT (23:11)
[2023-12-03] MEDS: AZITHROMYCIN 500 MG/NS 250 ML 500 MG/250 ML BAG 250 MG IVPB (23:44)
[2023-12-04] VITALS (11 sets, daily range): BP systolic 129–156; BP diastolic 50–98; PULSE 63–94; RESP 16–22; TEMP 36.2–36.9; O2SAT 94–96; BMI 25.7
[2023-12-04 00:29] LABS: MRSA (PCR) NOT DETECTED (NOT DETECTE)
[2023-12-04] MEDS: LACTATED RINGERS 1,000 ML 100 ML IV CONT (00:48)
[2023-12-04] MEDS: VANCOMYCIN 1,250 MG/NS 250 ML 1,250 MG/250 ML BAG 166.67 MG IVPB (00:49)
[2023-12-04 01:06] LABS: Reflex Lactic Acid Yes or No Add Lactic
--- NOTE | 2023-12-04 01:06 | ADMGEN ---
This patient, Charla Fraire, was admitted to [facility] Surg Room 330-02. Patient/family oriented to hospital policies and general routines including ID bracelet, bed and alarms, visiting hours, pain management, procedures, bathroom and other care routines, personal items, smoking policy, room service/diet, and visiting hours. Information on how to activate the Rapid Response Team has been discussed. Patient/Family are encouraged to report perceived risks to care and to ask questions if they do not understand what they are told or what they should do.
[2023-12-04 01:44] LABS: Lactic Acid 2.6 mmol/L (0.7-2.0)
[2023-12-04 01:57] LABS: Troponin I < 0.012 ng/mL (0.000-0.034)
[2023-12-04] MEDS: PIPERACILLIN/TAZ 2.25G/NS 50ML 2.25 GM/50 ML BAG IVPB (05:14)
--- NOTE | 2023-12-04 05:38 | PM.IMHP ---
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 She was watching TV yesterday when she developed a dull pressure in the center of her chest that went to her back. The pain was improving in the ER without intervention. She reported feeling slightly fatigued and has since developed a cough overnight. She denies any recent ill contacts. She denies having any fevers or chills. She has had decreased appetite but denies any nausea or vomiting. Patient is alert oriented person place and recent events. She is a fair historian but is not oriented to the current month or year. She reports that she chronically does not remember these things since she had her stroke. She denies any recent falls. She denies any recent travel, lower extremity swelling or leg pain. She denies history of blood clots. In the ER CTA was performed which was negative for dissection or pulmonary embolism chronic scarring noted. Blood cultures and urine cultures are pending. Patient's white count was elevated to 18. Patient received initial antibiotics for fever of unknown origin with Zosyn and vancomycin. MRSA screen was negative. Patient's creatinine although normal was elevated above her baseline and she had some lactic acidosis. It appears the patient did have an order for clindamycin as outpatient started on 11/30/2023. I am assuming the patient was feeling ill at home. She does have a small chronic wound to left ankle without signs of infection. Prep she was started on antibiotic for this?? Review of Systems Review of Systems: 12 systems were reviewed with pertinent positives and negatives per HPI. Except as documented in the HPI, all other systems were reviewed and are negative. 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, with right homonymous hemianopsia GERD (gastroesophageal reflux disease) Hyperlipidemia Hypertension Hypothyroid Kidney stones Legal blindness Skin cancer Surgical History Surgical History (Updated 12/04/23 @ 07:33 by hSaron Webster DO) H/O colonoscopy H/O shoulder surgery H/O: hysterectomy History of extraction of renal calculus History of thyroidectomy S/P bladder repair Status post cataract extraction of both eyes with insertion of intraocular lens Family History Family History Sibling Hypertension Family history of diabetes mellitus in first degree relative Family history of coronary artery disease Mother Family history of congenital heart disease, Onset Age: 84 Patient's mother is Social History Social History (Updated 12/04/23 @ 07:47 by Sharon Webster DO) Social History: She is . She has 2 biological children and 4 step children. She has 2 dogs and 1 cat. She retired from [employer]. She has worked and many retail sales. She smoked 1 pack of cigarettes per day for 10 years but quit when she was in her early 30s. She does not use any alcohol, marijuana or illicit drugs. Code status: DNR/DNI (the patient states that she has lived a good life and her age would not want cardiac resuscitation to be placed on a ventilator) Surrogate decision maker: Anson () Smoking packs per day: 1 Smoking cigarettes per day: 20.0 Smoking status: Never smoker Second hand tobacco smoke exposure: No Additional smoking assessment comments: 1 PACK/WEEK X 10 YRS Alcohol intake: never Substance use: never Substance use type: does not use [employer] [facility]
[2023-12-04 06:52] LABS: Hematocrit 37.4 % (37.0-47.0); Hemoglobin 12.5 g/dL (12.0-15.0); Mean Corpuscular HGB Conc 33.4 g/dl (32-36); Mean Corpuscular Hemoglobin 30.9 pg (26-34); Mean Corpuscular Volume 92.6 fl (80-100); Mean Platelet Volume 11.4 fl (7.4-10.4); Platelet Count Result 185 k/mm3 (150-375); Red Blood Count 4.04 M/mm3 (4.2-5.4); White Blood Count 13.9 K/mm3 (4.5-10.0)
[2023-12-04 07:17] LABS: Anion Gap 10 mmol/L (4-12); Blood Urea Nitrogen 9 mg/dL (7-17); Calcium 8.6 mg/dL (8.4-10.2); Carbon Dioxide 20 mmol/L (22-30); Chloride 108 mmol/L (98-107); Estimated CRCL calculation 55 ml/min; Estimated Glomerular Filt Rate > 60; Glucose 142 mg/dL (65-110); Potassium 2.9 mmol/L (3.4-5.0); Sodium 138 mmol/L (137-145)
--- NOTE | 2023-12-04 08:49 | PM.IMPN ---
Progress Note: A&P Assessment and Plan (1) Leukocytosis: Qualifiers: Leukocytosis type: unspecified Qualified Code(s): D72.829 - Elevated white blood cell count, unspecified Code(s): D72.829 - Elevated white blood cell count, unspecified Status: Acute Assessment and Plan: Suspected -recheck CBC in a.m. (2) Chest pain: Qualifiers: Chest pain type: unspecified Qualified Code(s): R07.9 - Chest pain, unspecified Code(s): R07.9 - Chest pain, unspecified Status: Acute Assessment and Plan: -acute onset, dull, non-radiating, pain has subsided -troponin negative, K+ 2.9, EKG normal sinus rhythm -continue telemetry monitoring -Check echo in the a.m. -continue ASA daily (3) Acidosis, lactic: Code(s): E87.20 - Acidosis, unspecified Status: Acute Assessment and Plan: Initial lactic acid 2.6 -recheck lactic acid pending (4) Tachypnea: Code(s): R06.82 - Tachypnea, not elsewhere classified Status: Resolved Assessment and Plan: vitals 98.1, GA 82, RR 18, SpO2 94% on RA (5) SIRS (systemic inflammatory response syndrome): Code(s): R65.10 - Systemic inflammatory response syndrome (SIRS) of non-infectious origin without acute organ dysfunction Status: Acute (6) Right thyroid nodule: Code(s): E04.1 - Nontoxic single thyroid nodule Status: Acute Assessment and Plan: As evidenced by CT scan, multiple right thyroid lobe hypodensities measuring up to 1.5 cm -recommend outpatient thyroid ultrasound for further characterization (7) Hypokalemia: Code(s): E87.6 - Hypokalemia Status: Acute Assessment and Plan: K+ 2.9 Acute, unknown etiology-no EKG changes -s/p: 40 mEq p.o. given in the ED -give 40 mEq IV over 3 hours - recheck BMP in Q 6 hours x1 -continue telemetry monitoring (8) Wound of right ankle: Code(s): S91.001A - Unspecified open wound, right ankle, initial encounter Status: Acute Plan PT/eval and treat Continue home medications: reconciled VTE Prophylaxis: Enoxaparin subQ DIET: Regular Anticipated hospital stay: > 2 days Code Status: DNR Subjective Date/time seen: 12/04/23 08:49 Interval history: Pt from home, with a PMHX of c/o ongoing left ankle(chronic) wound, her by the bedside reports she has ongoing wound management and was recently started on Abx. It was reported that pt had episode of dull pressure chest pain originating in the center of her chest and radiating to the back. She denies any overnight events this morning, she denies any sob, or chest pain at this time. WBC this am is 13.9, K+2.9. Will replete K+ with KCL40 MEQ IV. Review of Systems Review of Systems: All systems reviewed & are unremarkable except as noted in HPI and below Exam Narrative: General: A well-developed, nontoxic-appearing, female lying in bed. Spouse is by the bedside HEENT: PERRL, EOMI. Oral mucosa moist. Neck: Supple. No midline cervical tenderness. Respiratory: Respirations are non- labored and lungs faint crackles left anterior base, non-productive cough appreciated during exam Cardiovascular: Regular rate and rhythm with S1-S2. Gastrointestinal: Abdomen is soft, non-tender, and non-distended with positive bowel sounds. Skin: Warm and dry. Small chronic wound on the patient's left ankle, no drainage, or extended erythema observed at this time Extremities: No cyanosis, clubbing, or edema. Radial and pedal pulses intact. Neurological: Alert and oriented. Cranial nerves 2-12 are grossly intact. No gross focal deficits to casual conversation. Psychiatric: Pleasant and cooperative with normal mood and affect. Judgment and insight intact. Objective Data Vital Signs Vital Signs: Vital Signs - 24 hr 12/03/23 17:10 12/03/23 18:27 12/03/23 18:29 Temperature Pulse Rate 76 68 68 Respiratory Rate 22 H 21 H Blood Pressure 156/53 H
[2023-12-04] MEDS: POTASSIUM CHLORIDE 20 MEQ PACKET (FOR LIQUID) 40 MEQ PO (09:14)
[2023-12-04] MEDS: POTASSIUM CHLORIDE INJ 40 MEQ in SODIUM CHLORIDE 0.9% IV 500 ML 130 MEQ IVPB (12:58)
[2023-12-04 13:06] LABS: Lactic Acid Reflex 2.6 mmol/L (0.7-2.0)
[2023-12-04] MEDS: cloNIDine HCL 0.2 MG TABLET PO ×2 (13:10→20:46)
[2023-12-04] MEDS: ASPIRIN 81 MG ENTERIC TABLET PO (13:10)
[2023-12-04] MEDS: LOSARTAN POTASSIUM 100 MG TABLET PO (13:10)
[2023-12-04] MEDS: OPTI-GEN TAB 1 TABLET PO (13:10)
[2023-12-04] MEDS: amLODIPine BESYLATE 5 MG TABLET PO ×2 (13:10→20:46)
[2023-12-04] MEDS: ENOXAPARIN 40 MG/0.4 ML SYRINGE SUB-Q (13:16)
[2023-12-04 15:49] LABS: Reflex Lactic Acid Yes or No Add Lactic
[2023-12-04] MEDS: carvediloL 3.125 MG TABLET PO (16:56)
[2023-12-04] MEDS: hydrALAZINE HCL 50 MG TABLET PO (16:56)
[2023-12-04] MEDS: AMITRIPTYLINE HCL 25 MG TABLET PO (20:45)
[2023-12-04] MEDS: ATORVASTATIN 40 MG TABLET 80 MG PO (20:45)
[2023-12-04] MEDS: AZITHROMYCIN 500 MG/NS 250 ML 500 MG/250 ML BAG 250 MG IVPB (20:46)
[2023-12-04] MEDS: FAMOTIDINE 20 MG TABLET PO (20:46)
[2023-12-05] VITALS (7 sets, daily range): BP systolic 136–145; BP diastolic 53–54; PULSE 52–78; RESP 16; TEMP 36.9; O2SAT 96
[2023-12-05] MEDS: LEVOTHYROXINE SODIUM 50 MCG TABLET PO (05:44)
[2023-12-05 07:03] LABS: Basophils Absolute Auto 0.1 K/mm3 (0.0-0.1); Basophils Percent Auto 0.7 % (0.2-1.2); Eosinophils Absolute Auto 0.2 K/mm3 (0-0.3); Hematocrit 37.3 % (37.0-47.0); Hemoglobin 12.4 g/dL (12.0-15.0); Immature Granulocyte Absolute 0.03 K/mm3 (0.00-0.031); Immature Granulocyte Percent A 0.3 % (0-0.5); Lymphocytes Absolute Auto 3.07 K/mm3 (0.9-3.2); Lymphocytes Percent Auto 34.1 % (18.3-44.2); Mean Corpuscular HGB Conc 33.2 g/dl (32-36); Mean Corpuscular Hemoglobin 30.5 pg (26-34); Mean Corpuscular Volume 91.9 fl (80-100); Monocytes Absolute Auto 1.2 K/mm3 (0.1-0.6); Monocytes Percent Auto 12.8 % (2.6-8.5); Neutrophils Absolute Auto 4.5 K/mm3 (1.3-6.7); Neutrophils Percent Auto 50.1 % (45.5-73.1); Platelet Count Result 193 k/mm3 (150-375); Red Blood Count 4.06 M/mm3 (4.2-5.4); Red Cell Distribution Width 13.8 % (11.5-14.5)
[2023-12-05 07:20] LABS: Anion Gap 9 mmol/L (4-12); Blood Urea Nitrogen 8 mg/dL (7-17); Calcium 9.1 mg/dL (8.4-10.2); Carbon Dioxide 22 mmol/L (22-30); Chloride 109 mmol/L (98-107); Estimated CRCL calculation 47 ml/min; Estimated Glomerular Filt Rate > 60; Glucose 120 mg/dL (65-110); Potassium 3.5 mmol/L (3.4-5.0); Sodium 140 mmol/L (137-145)
[2023-12-05] MEDS: carvediloL 3.125 MG TABLET PO (08:13)
[2023-12-05] MEDS: ENOXAPARIN 40 MG/0.4 ML SYRINGE SUB-Q (08:13)
[2023-12-05] MEDS: hydrALAZINE HCL 50 MG TABLET PO (08:14)
[2023-12-05] MEDS: ASPIRIN 81 MG ENTERIC TABLET PO (08:14)
[2023-12-05] MEDS: LOSARTAN POTASSIUM 100 MG TABLET PO (08:14)
[2023-12-05] MEDS: cloNIDine HCL 0.2 MG TABLET PO (08:14)
[2023-12-05] MEDS: amLODIPine BESYLATE 5 MG TABLET PO (08:15)
[2023-12-05] MEDS: OPTI-GEN TAB 1 TABLET PO (08:15)
--- NOTE | 2023-12-05 11:24 | PM.DS ---
DS: Admitting Diagnosis Discharge Date 12/05/2023 Admitting Diagnosis ACS R/O/UTI DS: Discharge Diagnosis Discharge Diagnosis (1) Leukocytosis: Qualifiers: Leukocytosis type: unspecified Qualified Code(s): D72.829 - Elevated white blood cell count, unspecified Code(s): D72.829 - Elevated white blood cell count, unspecified Status: Acute Assessment and Plan: Suspected -recheck CBC in a.m. (2) Chest pain: Qualifiers: Chest pain type: unspecified Qualified Code(s): R07.9 - Chest pain, unspecified Code(s): R07.9 - Chest pain, unspecified Status: Acute Assessment and Plan: -acute onset, dull, non-radiating, pain has subsided -troponin negative, K+ 2.9, EKG normal sinus rhythm -continue telemetry monitoring -Check echo in the a.m. -continue ASA daily (3) Acidosis, lactic: Code(s): E87.20 - Acidosis, unspecified Status: Acute Assessment and Plan: Initial lactic acid 2.6 -recheck lactic acid pending (4) Tachypnea: Code(s): R06.82 - Tachypnea, not elsewhere classified Status: Resolved Assessment and Plan: vitals 98.1, MA 82, RR 18, SpO2 94% on RA (5) SIRS (systemic inflammatory response syndrome): Code(s): R65.10 - Systemic inflammatory response syndrome (SIRS) of non-infectious origin without acute organ dysfunction Status: Acute (6) Right thyroid nodule: Code(s): E04.1 - Nontoxic single thyroid nodule Status: Acute Assessment and Plan: As evidenced by CT scan, multiple right thyroid lobe hypodensities measuring up to 1.5 cm -recommend outpatient thyroid ultrasound for further characterization (7) Hypokalemia: Code(s): E87.6 - Hypokalemia Status: Acute Assessment and Plan: K+ 2.9 Acute, unknown etiology-no EKG changes -s/p: 40 mEq p.o. given in the ED -give 40 mEq IV over 3 hours - recheck BMP in Q 6 hours x1 -continue telemetry monitoring (8) Wound of right ankle: Code(s): S91.001A - Unspecified open wound, right ankle, initial encounter Status: Acute Plan PT/eval and treat Continue home medications: reconciled VTE Prophylaxis: Enoxaparin subQ DIET: Regular Anticipated hospital stay: > 2 days Code Status: DNR DS: Summary Hospital Course Reason for hospitalization: ACS R/O/UTI Hospital Course: Medical Record 88-year-old female with a past medical history of hypertension, hyperlipidemia and CVA with resulting legal blindness and short-term memory loss who presented to the ER from home via EMS due to chest pain that started around 16:00 yesterday.? She was watching TV yesterday when she developed a dull pressure in the center of her chest that went to her back.? The pain was improving in the ER without intervention.? She reported feeling slightly fatigued and has since developed a cough overnight.? She denies any recent ill contacts.? She denies having any fevers or chills.? She has had decreased appetite but denies any nausea or vomiting.? Patient is alert oriented person place and recent events.? She is a fair historian but is not oriented to the current month or year.? She reports that she chronically does not remember these things since she had her stroke.? She denies any recent falls.? She denies any recent travel, lower extremity swelling or leg pain.? She denies history of blood clots.? In the ER CTA was performed which was negative for dissection or pulmonary embolism chronic scarring noted.? Blood cultures and urine cultures are pending.? Patient's white count was elevated to 18.? Patient received initial antibiotics for fever of unknown origin with Zosyn and vancomycin.? MRSA screen was negative.? Patient's creatinine although normal was elevated above her baseline and she had some lactic acidosis. It appears the patient did have an order for clindamycin as outpatient started on 11/30/2023.? She does have a small chronic wound to left
[2023-12-08 18:29] LABS: Pneumococcal Antigen Urine NOT DETECTED
[2023-12-08 22:14] LABS: Legionella pneumophila Ag Ur NOT DETECTED
== END 2023-12-05 12:45 | disposition home or self-care (01) ==
LOC: ANHED 23:27 → ANH3MEDSUR 12-04 01:35
PROVIDERS: Emergency Medicine; Nurse Practitioner; Admitting Provider Internal Medicine; Emergency Provider Emergency Medicine; Visit Provider Internal Medicine
DX: R07.9 Chest pain, unspecified (principal); D72.829 Elevated white blood cell count, unspecified; E87.20 Acidosis, unspecified; R06.82 Tachypnea, not elsewhere classified; E04.1 Nontoxic single thyroid nodule; E87.6 Hypokalemia; S91.011A Laceration without foreign body, right ankle, initial encounter; I10 Essential (primary) hypertension; E78.5 Hyperlipidemia, unspecified; E03.9 Hypothyroidism, unspecified; K21.9 Gastro-esophageal reflux disease without esophagitis; I69.311 Memory deficit following cerebral infarction; I69.312 Visuospatial deficit and spatial neglect following cerebral infarction; Z79.82 Long term (current) use of aspirin; Z79.02 Long term (current) use of antithrombotics/antiplatelets; Z87.891 Personal history of nicotine dependence; Z20.822 Contact with and (suspected) exposure to COVID-19; X58.XXXA Exposure to other specified factors, initial encounter
CPT/HCPCS: 36415; 71046; 71275; 80048; 80053; 81001; 83605; 83690; 84484; 85025; 85027; 85610; 85730; 87040; 87077; 87086; 87088; 87186; 87449; 87637; 87641; 87899; 93005; 96365; 96367; 96372; 96375; 96376; 97161; 99285; A9270; G0378; J0456; J0696; J1650; J2543; J3370; J3480; J7030; J7040; J7120; Q9967

== ENCOUNTER 2024-01-14 08:31 | Emergency (ER) | payer MEDICARE, SELFPAY ==
--- NOTE | 2024-01-14 08:36 | ED.EAR ---
HPI - Ear Problem General Chief complaint: Ear Stated complaint: Left Earache Time Seen by Provider: 01/14/24 08:42 Source: patient, RN notes reviewed and old records reviewed Mode of arrival: ambulatory Limitations: no limitations History of Present Illness HPI Narrative: 88-year-old female presents to the [facility] with complaints of intermittent left earache. Symptoms started 2-3 days ago Has been is giving history, patient has history of strokes. Has been reports that she does take Tylenol on a regular basis. Denies any other symptoms Related Data Home Medications Medication Instructions Recorded Confirmed amlodipine 5 mg tablet 5 mg PO BID 06/08/19 12/04/23 levothyroxine 50 mcg tablet 50 mcg PO QAM 06/08/19 12/04/23 losartan 100 mg tablet 100 mg PO QAM 06/08/19 12/04/23 ljmjbeic-vwp-ibpli acid 500 1 tablet PO DAILY 06/08/19 12/04/23 mcg-lycopene 300 mcg-lutein 250 mcg tablet (Complete Multi 50+) aspirin 81 mg tablet,delayed 81 mg PO DAILY 06/09/21 12/04/23 release famotidine 20 mg tablet 20 mg PO HS 06/09/21 12/04/23 atorvastatin 80 mg tablet 80 mg PO HS 10/16/22 12/04/23 carvedilol 3.125 mg tablet 3.125 mg PO BID 10/16/22 12/04/23 clonidine HCl 0.2 mg tablet 0.2 mg PO BID 10/16/22 12/04/23 hydralazine 50 mg tablet 50 mg PO TID 10/16/22 12/04/23 amitriptyline 25 mg tablet 25 mg PO HS 12/04/23 12/04/23 tramadol 50 mg tablet 50 mg PO Q6H PRN ankle pain 12/04/23 12/04/23 Allergies Allergy/AdvReac Type Severity Reaction Status Date / Time Sulfa (Sulfonamide Allergy Unknown Vomiting, Verified 12/03/23 18:26 Antibiotics) DIARRHEA Review of Systems Review of Systems: All systems reviewed & are unremarkable except as noted in HPI and below Constitutional: Constitutional: Reports no additional constitutional complaints Eyes: Eyes: Reports no additional eye complaints ENT: Reports as per HPI, Reports otalgia (left) and Denies headache(s) Cardiovascular: Cardiovascular: Reports no additional cardiovascular complaints, Denies chest pain and Denies dyspnea Respiratory: Respiratory: Reports no additional respiratory complaints, Denies chest congestion, Denies cough and Denies dyspnea Gastrointestinal: Gastrointestinal: Reports no additional gastrointestinal complaints, Denies abdominal pain, Denies nausea and Denies vomiting Musculoskeletal: Musculoskeletal: Reports no additional musculoskeletal complaints Integumentary/Breasts: Skin/Breast: Reports system reviewed and no additional complaints, except as docu Neurologic: Reports system reviewed and no additional complaints, except as documented Psychiatric: Psychiatric: Reports no additional psychiatric complaints Allergic/Immunologic: Allergic/Immunologic: Reports no additional allergic/immunologic complaints [facility] Past Medical History Medical History Carotid stenosis, 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, with right homonymous hemianopsia GERD (gastroesophageal reflux disease) Hyperlipidemia Hypertension Hypothyroid Kidney stones Legal blindness Skin cancer Surgical History Surgical History H/O colonoscopy H/O shoulder surgery H/O: hysterectomy History of extraction of renal calculus History of thyroidectomy S/P bladder repair Status post cataract extraction of both eyes with insertion of intraocular lens Family History Family History Sibling Hypertension Family history of diabetes mellitus in first degree relative Family history of coronary artery disease Mother Family history of congenital heart disease, Onset Age: 84 Patient's mother is Social History Social History Social History: She is . She has 2 biological childr
[2024-01-14 08:42] VITALS: BP 140/54; PULSE 97; RESP 14; TEMP 36.7; O2SAT 97
== END 2024-01-14 08:55 | disposition home or self-care (01) ==
PROVIDERS: Emergency Provider Nurse Practitioner
DX: H60.92 Unspecified otitis externa, left ear (principal); Z87.81 Personal history of (healed) traumatic fracture; I65.23 Occlusion and stenosis of bilateral carotid arteries; I10 Essential (primary) hypertension; K21.9 Gastro-esophageal reflux disease without esophagitis; E78.5 Hyperlipidemia, unspecified; H54.8 Legal blindness, as defined in USA; Z85.828 Personal history of other malignant neoplasm of skin; E89.0 Postprocedural hypothyroidism
CPT/HCPCS: 99213; G0463

== ENCOUNTER 2024-07-03 08:27 | Emergency (ER) | payer MEDICARE, SELFPAY ==
--- NOTE | ~2024-07-03 | XR_ITS ---
EXAMINATION: XR chest 2V 07/03/2024 08:58 INDICATION: Cough and shortness of breath PROCEDURE: 2 view chest COMPARISON: 12/03/2023 FINDINGS: The lungs are clear. The cardiomediastinal silhouette is within normal limits. There are no pleural effusions. There is no pneumothorax suspected. IMPRESSION: 1: NO ACUTE CARDIOPULMONARY DISEASE. Reviewed, dictated and finalized at location B. [employer]PPLY SUPERVISOR
--- NOTE | 2024-07-03 08:29 | ED.URI ---
HPI - URI/Sore Throat General Chief Complaint: Upper Respiratory Infection Stated Complaint: Cough/Sinus Time Seen by Provider: 07/03/24 08:28 Source: patient Mode of arrival: ambulatory Limitations: no limitations History of Present Illness HPI Narrative: Charla is a 88-year-old female patient presenting to the clinic today with complaints of cough x5 days. She denies any fever, chills, body aches, runny nose, sore throat, shortness breath, or chest congestion. No known sick contacts. Has a dry cough. No history of COPD or asthma. MD elicited complaint: cough Related Data Home Medications Medication Instructions Recorded Confirmed amlodipine 5 mg tablet 5 mg PO BID 06/08/19 12/04/23 levothyroxine 50 mcg tablet 50 mcg PO QAM 06/08/19 12/04/23 losartan 100 mg tablet 100 mg PO QAM 06/08/19 12/04/23 ixnpyczs-oig-pyewo acid 500 1 tablet PO DAILY 06/08/19 12/04/23 mcg-lycopene 300 mcg-lutein 250 mcg tablet (Complete Multi 50+) aspirin 81 mg tablet,delayed 81 mg PO DAILY 06/09/21 12/04/23 release famotidine 20 mg tablet 20 mg PO HS 06/09/21 12/04/23 atorvastatin 80 mg tablet 80 mg PO HS 10/16/22 12/04/23 carvedilol 3.125 mg tablet 3.125 mg PO BID 10/16/22 12/04/23 clonidine HCl 0.2 mg tablet 0.2 mg PO BID 10/16/22 12/04/23 hydralazine 50 mg tablet 50 mg PO TID 10/16/22 12/04/23 amitriptyline 25 mg tablet 25 mg PO HS 12/04/23 12/04/23 tramadol 50 mg tablet 50 mg PO Q6H PRN ankle pain 12/04/23 12/04/23 Allergies Allergy/AdvReac Type Severity Reaction Status Date / Time Sulfa (Sulfonamide Allergy Unknown Vomiting, Verified 07/03/24 08:31 Antibiotics) DIARRHEA Review of Systems Review of Systems: Pertinent positives per HPI. Patient denies any fever, chills, rash, headache, visual changes, dizziness, runny nose, sore throat, shortness of breath, chest pain, palpitations, nausea, vomiting, diarrhea, constipation, abdominal pain, or any urinary issues. 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, with right homonymous hemianopsia GERD (gastroesophageal reflux disease) Hyperlipidemia Hypertension Hypothyroid Kidney stones Legal blindness Skin cancer Surgical History Surgical History H/O colonoscopy H/O shoulder surgery H/O: hysterectomy History of extraction of renal calculus History of thyroidectomy S/P bladder repair Status post cataract extraction of both eyes with insertion of intraocular lens Family History Family History Sibling Hypertension Family history of diabetes mellitus in first degree relative Family history of coronary artery disease Mother Family history of congenital heart disease, Onset Age: 84 Patient's mother is Social History Social History Social History: She is . She has 2 biological children and 4 step children. She has 2 dogs and 1 cat. She retired from [employer] [place]. She has worked and many retail sales. She smoked 1 pack of cigarettes per day for 10 years but quit when she was in her early 30s. She does not use any alcohol, marijuana or illicit drugs. Code status: DNR/DNI (the patient states that she has lived a good life and her age would not want cardiac resuscitation to be placed on a ventilator) Surrogate decision maker: Anson () Smoking packs per day: 1 Smoking cigarettes per day: 20.0 Years smoked: 10 Smoking pack-years: 10.00 Smoking status: Former smoker Tobacco type: cigarettes Second hand tobacco smoke exposure: No Additional smoking assessment comments: 1 PACK/WEEK X 10 YRS Alcohol intake: never Substance use: never Substance use type: does not use Do You Feel Safe in your Home?: Yes Lack of Transportation: No Lack of Food: Never True Current Housing: I Have Housing Concerned About Future Housing: No Difficulty Paying Gas/Electric Bills: No Difficulty Paying for Meds: No Currently Unemployed: No Education: Don't Know Difficulty w/ Childcare or Family Care: No Living arrangements: with family Additional living arrangements comments: HUSB Gender identity (if verbalized by the patient): Female Sexual Orientation (if Verbalized by the Patient): Straight or Heterosexual Spiritual care concerns: No Agree to blood products: Yes Comments At the time of my signature, I reviewed and agree with the nursing past medical, surgical, social, and family history. There is no relevant family history pertinent to the patient complaint. Exam Narrative: General: Well-developed, well nourished, in no apparent distress Head: Normocephalic, atraumatic Eyes: Pupils equally round and reactive to light bilaterally, EOM intact, sclera and conjunctive clear, no discharge, lids normal Ears: TMs intact and clear, ear canals clear, no drainage, grossly hearing normal. Nose: Nares patent, clear nasal discharge, moderate inflammation, no sinus tenderness. Mouth: Oral pharynx without lesions or masses, good dentition, MMM. Postnasal drip Neck: Supple, trachea midline, no enlargement of anterior or posterior cervical nodes, no thyroid masses or goiter palpable. Cardio: Regular rate and rhythm, s1 and s2 normal, no murmur appreciated. Resp: Clear to auscultation bilaterally, no rhonchi, rales, wheezing or rubs Course Course Emergency Course: Portions of this record may have been created with voice recognition software. Level of Care: Express Care Visit Vital Signs Vital signs: Vital Signs Temperature 36.8 C 07/03/24 08:38 Pulse Rate 71 07/03/24 08:38 Respiratory Rate 18 07/03/24 08:38 Blood Pressure 128/50 L 07/03/24 08:38 Pulse Oximetry 98 07/03/24 08:38 Oxygen Delivery Room Air 07/03/24 08:38 Temperature 36.8 C 07/03/24 08:38 Pulse Rate 71 07/03/24 08:38 Respiratory Rate 18 07/03/24 08:38 Blood Pressure 128/50 L 07/03/24 08:38 Pulse Oximetry 98 07/03/24 08:38 Oxygen Delivery Room Air 07/03/24 08:38 Vital signs reviewed MDM - URI/Sore Throat MDM Narrative Medical decision making narrative: At the time of visit patient is resting comfortably on the exam table. Patient appears to be nontoxic. Labs: COVID and influenza testing was performed and were negative in the clinic today. Diagnostics: Chest x-ray was performed was negative for any acute cardiopulmonary process Plan: I suspect patient has URI/acute cough/postnasal drip. Chest x-rays negative in COVID and flu testing was negative as well. Lung sounds are clear in the clinic today. Will send done prescription for Tessalon Perles, prednisone, and albuterol inhaler. Supportive measures were discussed with the patient and they voiced understanding discharge instructions and agrees to treatment plan. Return precautions reviewed Differential Diagnosis Differential diagnosis: Likely upper respiratory infection, otitis media, sinusitis, viral infection, bronchitis, influenza, pharyngitis and other (COVID) Lab Data Labs: Lab Results 07/03/24 Range/Units 08:48 POC Influenza A Ag Negative (Negative) POC Influenza B Ag Negative (Negative) POC SARS CoV-2 Ag Negative (Negative) Imaging Data Radiologist's impression: ITS Impressions Chest X-Ray 07/03/24 09:00 IMPRESSION: 1: NO ACUTE CARDIOPULMONARY DISEASE. Discharge Plan Discharge Clinical Impression: Acute cough, Post-nasal drip URI (upper respiratory infection) Qualifiers: URI type: unspecified viral URI Qualified Code(s): J06.9 - Acute upper respiratory infection, unspecified Patient Disposition: Home, Self-Care Condition: Stable Instructions: Antibiotic Form, Cold Symptoms (ED), Acute Cough (ED), Postnasal Drip (DC) Additional Instructions: Take prescription medications only as prescribed-albuterol inhaler and prednisone Increase fluids and stay well hydrated Tylenol/motrin for pain/fever Flonase and OTC antihistamines as directed Vicks vapor rub to open sinuses Sinus rinses for congestion Cepacol spray, cough drops, throat lozenges, warm tea with honey/lemon, gargle salt water to soothe throat BRAT diet for diarrhea Clear liquids x 24 hours then advance as tolerated for nausea/vomiting Go to the ED if you develop a worsening in your condition- high fever not controlled by Tylenol or Motrin, dehydration, weakness, lethargy, shortness of breath, or chest pain. Follow up with your PCP in 3-5 days if symptoms persist. Prescriptions: New benzonatate 200 mg capsule 200 mg PO TID 7 Days Qty: 21 0RF albuterol sulfate 90 mcg/actuation HFA aerosol inhaler 2 puff inhalation Q4-6H PRN (Reason: shortness of breath or wheezing) 30 Days Qty: 8.5 0RF prednisone 20 mg tablet 40 mg PO DAILY 5 Days Qty: 10 0RF No Action atorvastatin 80 mg tablet 80 mg PO HS carvedilol 3.125 mg tablet 3.125 mg PO BID clonidine HCl 0.2 mg tablet 0.2 mg PO BID hydralazine 50 mg tablet 50 mg PO TID [id number]-lvyatfhsx-KI 3.5-10,000-1 mg/mL-unit/mL-% drops,suspension 4 drp LEFT EAR TID 5 Days Qty: 10 0RF aspirin 81 mg Tablet,Delayed Release (Dr/Ec) 81 mg PO DAILY Hold Instructions: Resume on 06/15/21. famotidine 20 mg tablet 20 mg PO HS amitriptyline 25 mg tablet 25 mg PO HS tramadol 50 mg tablet 50 mg PO Q6H PRN (Reason: ankle pain) amlodipine 5 mg Tablet 5 mg PO BID levothyroxine 50 mcg Tablet 50 mcg PO QAM losartan 100 mg Tablet 100 mg PO QAM Complete Multi 50+ 500-300-250 mcg Tablet 1 tablet PO DAILY Follow-up/Referrals: UNKNOWN,DOCTOR [Non-Staff] - Time of Disposition: 09:05 Quality NIHSS Nursing Documentation ED NIHSS nursing documentation: reviewed/agree
[2024-07-03 08:38] VITALS: BP 128/50; PULSE 71; RESP 18; TEMP 36.8; O2SAT 98
[2024-07-03 09:03] LABS: EDCOVIDSCREEN Negative (Negative); EDINFLUASCREEN Negative (Negative); EDINFLUBSCREEN Negative (Negative)
== END 2024-07-03 09:12 | disposition home or self-care (01) ==
PROVIDERS: Emergency Provider Nurse Practitioner Family
DX: J06.9 Acute upper respiratory infection, unspecified (principal); R09.82 Postnasal drip; R05.1 Acute cough; I10 Essential (primary) hypertension; E03.9 Hypothyroidism, unspecified; E78.5 Hyperlipidemia, unspecified; Z86.73 Personal history of transient ischemic attack (TIA), and cerebral infarction without residual deficits; Z85.828 Personal history of other malignant neoplasm of skin; Z20.822 Contact with and (suspected) exposure to COVID-19; Z87.891 Personal history of nicotine dependence
CPT/HCPCS: 71046; 87426; 87804; 99213; G0463

== ENCOUNTER 2024-07-20 08:32 | Emergency (ER) | payer MEDICARE, SELFPAY ==
--- NOTE | 2024-07-20 08:37 | ED_ITS ---
HPI - URI/Sore Throat General Chief Complaint: Upper Respiratory Infection Stated Complaint: cough not any better since last visit Time Seen by Provider: 07/20/24 08:49 Source: patient, RN notes reviewed and old records reviewed Mode of arrival: ambulatory Limitations: no limitations History of Present Illness HPI Narrative: 89-year-old female presents to the [facility] with her with concerns that her cough is not improving. Was seen on July 03, prescribed Tessalon Perles, albuterol and prednisone. Patient's states that she refuses to use the albuterol. Did use prednisone did have some improvement but then the cough returned. Has not tried any [id number]-jkwwlzv products Denies any fevers, chest pain. Has not followed up with primary, states they have an appointment in August Has been is doing all the talking for her. Onset (ago): week(s) (3) Related Data Home Medications ?Medication ?Instructions ?Recorded ?Confirmed ?Last Taken ?Type amlodipine 5 mg tablet 5 mg PO BID 06/08/19 12/04/23 12/03/23 09:00 History levothyroxine 50 mcg tablet 50 mcg PO QAM 06/08/19 12/04/23 12/03/23 06:30 History losartan 100 mg tablet 100 mg PO QAM 06/08/19 12/04/23 12/03/23 09:00 History sxtathif-sqp-jwejk acid 500 1 tablet PO DAILY 06/08/19 12/04/23 06/08/19 05:00 History mcg-lycopene 300 mcg-lutein 250 mcg tablet (Complete Multi 50+) aspirin 81 mg tablet,delayed 81 mg PO DAILY 06/09/21 12/04/23 12/03/23 09:00 History release famotidine 20 mg tablet 20 mg PO HS 06/09/21 12/04/23 Unknown History atorvastatin 80 mg tablet 80 mg PO HS 10/16/22 12/04/23 12/02/23 21:00 History carvedilol 3.125 mg tablet 3.125 mg PO BID 10/16/22 12/04/23 Unknown History clonidine HCl 0.2 mg tablet 0.2 mg PO BID 10/16/22 12/04/23 12/03/23 09:00 History hydralazine 50 mg tablet 50 mg PO TID 10/16/22 12/04/23 Unknown History amitriptyline 25 mg tablet 25 mg PO HS 12/04/23 12/04/23 12/02/23 21:00 History tramadol 50 mg tablet 50 mg PO Q6H PRN ankle pain 12/04/23 12/04/23 Unknown History Allergies Allergy/AdvReac Type Severity Reaction Status Date / Time Sulfa (Sulfonamide Allergy Unknown Vomiting, Verified 07/03/24 08:31 Antibiotics) DIARRHEA Review of Systems Review of Systems: All systems reviewed & are unremarkable except as noted in HPI and below Constitutional: Constitutional: Reports no additional constitutional complaints ENT: Reports system reviewed and no additional complaints, except as documented Cardiovascular: Cardiovascular: Reports no additional cardiovascular complaints, Denies chest pain and Denies dyspnea Respiratory: Respiratory: Reports as per HPI, Denies chest congestion, Reports cough and Denies dyspnea Gastrointestinal: Gastrointestinal: Reports no additional gastrointestinal co mplaints, Denies abdominal pain, Denies nausea and Denies vomiting Musculoskeletal: Musculoskeletal: Reports no additional musculoskeletal complaints Integumentary/Breasts: Skin/Breast: Reports system reviewed and no additional complaints, except as docu PMFSH Past Medical History Medical History 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, with right homonymous hemianopsia Skin cancer Kidney stones Carotid stenosis, bilateral Hypothyroid GERD (gastroesophageal reflux disease) Hyperlipidemia Hypertension Surgical History Surgical History Status post cataract extraction of both eyes with insertion of intraocular lens History of extraction of renal calculus S/P bladder repair H/O shoulder surgery H/O: hysterectomy H/O colonoscopy History of thyroidectomy Family History Family History Sibling Hypertension Family history of diabetes mellitus in first degree relative Family history of coronary artery disease Mother Family history of congenital heart disease, Onset Age: 84 Patient's mother is Social History Social History Social History: She is . She has 2 biological children and 4 step children. She has 2 dogs and 1 cat. She retired from [employer]. She has worked and many retail sales. She smoked 1 pack of cigarettes per day for 10 years but quit when she was in her early 30s. She does not use any alcohol, marijuana or illicit drugs. Code status: DNR/DNI (the patient states that she has lived a good life and her age would not want cardiac resuscitation to be placed on a ventilator) Surrogate decision maker: Anson () Smoking packs per day: 1 Smoking cigarettes per day: 20.0 Years smoked: 10 Smoking pack-years: 10.00 Smoking status: Former smoker Tobacco type: cigarettes Second hand tobacco smoke exposure: No Additional smoking assessment comments: 1 PACK/WEEK X 10 YRS Alcohol intake: never Substance use: never Substance use type: does not use Do You Feel Safe in your Home?: Yes Lack of Transportation: No Lack of Food: Never True Current Housing: I Have Housing Concerned About Future Housing: No Difficulty Paying Gas/Electric Bills: No Difficulty Paying for Meds: No Currently Unemployed: No Education: Don't Know Difficulty w/ Childcare or Family Care: No Living arrangements: with family Additional living arrangements comments: VICKY Gender identity (if verbalized by the patient): Female Sexual Orientation (if Verbalized by the Patient): Straight or Heterosexual Spiritual care concerns: No Agree to blood products: Yes Comments At the time of my signature, I reviewed and agree with the nursing past medical, surgical, social, and family history. There is no relevant family history pertinent to the patient complaint. Exam Const: General: cooperative, comfortable, no acute distress, well developed, alert, ill appearing chronically and well nourished Nutritional Appearance: well nourished Limitations: no limitations HENMT: Head: normal to inspection Ears: hearing grossly normal bilaterally, external ears normal, TM's normal bilaterally, EAC's normal, mastoids normal and no periauricular adenopathy Face/Nose/Sinus: Normal external nose present, normal facial exam and face symmetric Face and sinus: normal facial exam and face symmetric Mouth: Yes Normal oral and palatal mucosa present, Yes lip normal and Yes tongue normal Throat: posterior oropharynx normal, uvula midline and no uvular edema Eyes: General: appearance normal, both eyes and all related structures Alignment and Position: alignment normal Periorbital: periorbital findings normal Neck: Neck: normal visual inspection, full ROM, no lymphadenopathy and no meningeal signs Chest: Chest palpation & inspection: normal inspection of the chest Resp: Effort & Inspection: normal respiratory effort and able to speak in complete sentences Auscultation: clear to auscultation bilaterally, no crackles, no rales, no rhonchi and no wheezes Cardio: Rate: regular rate Skin: General skin exam: normal color and no rashes or lesions noted Lesions: no lesions Rashes: no rashes Wounds: no wounds Neuro: General: tone normal, moves all extremities and no meningeal signs Cognition (Neuro): normal cognition Speech: normal speech Gait exam (Neuro): Normal gait present Extrem: General: normal to inspection, full ROM, capillary refill normal and normal gait Psych: Appearance: grossly normal and well kempt Mental Status: mental status grossly normal Speech and movement: Normal speech and movement present and Clear speech present Affect: normal affect Attitude: cooperative Course Course Level of Care: Express Care Visit Vital Signs Vital signs: Vital Signs Temperature 98.4 F 07/20/24 08:47 Pulse Rate 68 07/20/24 08:47 Respiratory Rate 16 07/20/24 08:47 Blood Pressure 127/97 H 07/20/24 08:47 Pulse Oximetry 98 07/20/24 08:47 Oxygen Delivery Room Air 07/20/24 08:47 Temperature 98.4 F 07/20/24 08:47 Pulse Rate 68 07/20/24 08:47 Respiratory Rate 16 07/20/24 08:47 Blood Pressure 127/97 H 07/20/24 08:47 Pulse Oximetry 98 07/20/24 08:47 Oxygen Delivery Room Air 07/20/24 08:47 Reviewed MDM - URI/Sore Throat MDM Narrative Medical decision making narrative: Patient sitting in exam room. Nontoxic, vitals stable. Patient in no acute distress. Has been reports cough for 3-4 weeks Has been treated with prednisone, Tessalon Perles. Patient is refusing the albuterol Patient's exam consistent with a cough, no other acute findings noted on exam Patient appropriate for outpatient follow-up with strict precautions to go the emergency room and to definitely follow up with his primary care provider as soon as possible Will prescribe doxycycline, will not repeat the prednisone due to she was on it 2 weeks ago. Patient does have her albuterol. Encourage has been to have her use it Discharge instructions reviewed with patient, as well as provided in writing per nursing staff. The instructions also include specific and strict return/GO TO THE ER as well as f/u information. All questions have been answered, and the patient deny any further questions with discharge and discharge plan. Some parts of this dictation were generated by voice recognition software and may contain typographical and/or grammatical inaccuracies. Differential Diagnosis Differential diagnosis: Likely upper respiratory infection, otitis media, sinusitis, viral infection and bronchitis Critical Care Time Critical Care Time Critical Care Time: No Discharge Plan Discharge Clinical Impression: Bronchitis Patient Disposition: Home, Self-Care Condition: Stable Instructions: Antibiotic Form, Acute Bronchitis (ED) Additional Instructions: It is very important to treat your symptoms. Plenty of water, Gatorade, Pedialyte, ice pops or Jell-O. -take Tylenol per package instructions -Antihistamine medication such as Zyrtec/Claritin/Cassidy can help improve symptoms. -doing daily nasal irrigations can help relieve pressure your sinuses. Things like a Neti pot -Use Flonase daily to help reduce the inflammation and dry up your sinuses. -You can also use Coricidin HBP. Be sure to drink plenty of water with this medication, Water is a natural decongestant -Frequent hand washing or hand certified registered locksmith is one of the best ways to prevent spread of infection. -Using a vaporizer or humidifier at night will also help thin secretions and help with coughing up phlegm. -Follow up with primary care provider in 5-7 days if condition is not improving - For new or worsening symptoms go directly to the nearest ER Patient Language: Divehi Prescriptions: New doxycycline monohydrate 100 mg tablet 100 mg PO BID Qty: 14 0RF No Action albuterol sulfate 90 mcg/actuation HFA aerosol inhaler 2 puff inhalation Q4-6H PRN (Reason: shortness of breath or wheezing) 30 Days Qty: 8.5 0RF atorvastatin 80 mg tablet 80 mg PO HS carvedilol 3.125 mg tablet 3.125 mg PO BID clonidine HCl 0.2 mg tablet 0.2 mg PO BID hydralazine 50 mg tablet 50 mg PO TID jryrlups-fgoynzwzw-QD 3.5-10,000-1 mg/mL-unit/mL-% drops,suspension 4 drp LEFT EAR TID 5 Days Qty: 10 0RF aspirin 81 mg Tablet,Delayed Release (Dr/Ec) 81 mg PO DAILY famotidine 20 mg tablet 20 mg PO HS amitriptyline 25 mg tablet 25 mg PO HS tramadol 50 mg tablet 50 mg PO Q6H PRN (Reason: ankle pain) amlodipine 5 mg Tablet 5 mg PO BID levothyroxine 50 mcg Tablet 50 mcg PO QAM losartan 100 mg Tablet 100 mg PO QAM Complete Multi 50+ 500-300-250 mcg Tablet 1 tablet PO DAILY Follow-up/Referrals: PHYSICIAN NOT ON STAFF,NONSTAFF [Primary Care Provider] - Time of Disposition: 09:02
[2024-07-20 08:47] VITALS: BP 127/97; PULSE 68; RESP 16; TEMP 36.9; O2SAT 98
== END 2024-07-20 09:09 | disposition home or self-care (01) ==
PROVIDERS: Emergency Provider Nurse Practitioner
DX: J40 Bronchitis, not specified as acute or chronic (principal); Z87.891 Personal history of nicotine dependence; Z86.73 Personal history of transient ischemic attack (TIA), and cerebral infarction without residual deficits; I65.23 Occlusion and stenosis of bilateral carotid arteries; E89.0 Postprocedural hypothyroidism; I10 Essential (primary) hypertension; E78.5 Hyperlipidemia, unspecified; K21.9 Gastro-esophageal reflux disease without esophagitis; H54.8 Legal blindness, as defined in USA; Z85.828 Personal history of other malignant neoplasm of skin; Z79.82 Long term (current) use of aspirin
CPT/HCPCS: 99213; G0463

== ENCOUNTER 2024-12-29 08:31 | Emergency (ER) | payer MEDICARE, SELFPAY ==
--- NOTE | 2024-12-29 08:36 | ED.EXTPRO ---
HPI - Extremity Problem General Chief complaint: Extremity Problem,Nontraumatic Stated complaint: Left Hand Thumb Pain Time Seen by Provider: 12/29/24 08:45 Source: patient Mode of arrival: ambulatory Limitations: no limitations History of Present Illness HPI Narrative: Charla is an 89-year-old female patient presenting to the clinic today with complaints of left distal lateral thumb pain x5 days. She has not seen her primary care provider for this. Area is painful, mildly swollen, with some localized redness. No purulent discharge at this time. Denies fevers, chills, body aches. No injury. Related Data Home Medications ?Medication ?Instructions ?Recorded ?Confirmed ?Last Taken ?Type amlodipine 5 mg tablet 5 mg PO BID 06/08/19 07/20/24 12/03/23 09:00 History levothyroxine 50 mcg tablet 50 mcg PO QAM 06/08/19 07/20/24 12/03/23 06:30 History losartan 100 mg tablet 100 mg PO QAM 06/08/19 07/20/24 12/03/23 09:00 History yavfppxd-szf-zbhdv acid 500 1 tablet PO DAILY 06/08/19 07/20/24 06/08/19 05:00 History mcg-lycopene 300 mcg-lutein 250 mcg tablet (Complete Multi 50+) aspirin 81 mg tablet,delayed 81 mg PO DAILY 06/09/21 07/20/24 12/03/23 09:00 History release famotidine 20 mg tablet 20 mg PO HS 06/09/21 07/20/24 Unknown History atorvastatin 80 mg tablet 80 mg PO HS 10/16/22 07/20/24 12/02/23 21:00 History carvedilol 3.125 mg tablet 3.125 mg PO BID 10/16/22 07/20/24 Unknown History clonidine HCl 0.2 mg tablet 0.2 mg PO BID 10/16/22 07/20/24 12/03/23 09:00 History hydralazine 50 mg tablet 50 mg PO TID 10/16/22 07/20/24 Unknown History amitriptyline 25 mg tablet 25 mg PO HS 12/04/23 07/20/24 12/02/23 21:00 History Allergies Allergy/AdvReac Type Severity Reaction Status Date / Time Sulfa (Sulfonamide Allergy Unknown Vomiting, Verified 12/29/24 08:42 Antibiotics) DIARRHEA Review of Systems Review of Systems: Pertinent positives per HPI. Patient denies any fever, chills, rash, headache, visual changes, dizziness, cough, runny nose, sore throat, shortness of breath, chest pain, palpitations, nausea, vomiting, diarrhea, constipation, abdominal pain, or any urinary issues. 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, with right homonymous hemianopsia Skin cancer Kidney stones Carotid stenosis, bilateral Hypothyroid GERD (gastroesophageal reflux disease) Hyperlipidemia Hypertension Surgical History Surgical History Status post cataract extraction of both eyes with insertion of intraocular lens History of extraction of renal calculus S/P bladder repair H/O shoulder surgery H/O: hysterectomy H/O colonoscopy History of thyroidectomy Family History Family History Sibling Hypertension Family history of diabetes mellitus in first degree relative Family history of coronary artery disease Mother Family history of congenital heart disease, Onset Age: 84 Patient's mother is Social History Social History Social History: She is . She has 2 biological children and 4 step children. She has 2 dogs and 1 cat. She retired from [employer]. She has worked and many retail sales. She smoked 1 pack of cigarettes per day for 10 years but quit when she was in her early 30s. She does not use any alcohol, marijuana or illicit drugs. Code status: DNR/DNI (the patient states that she has lived a good life and her age would not want cardiac resuscitation to be placed on a ventilator) Surrogate decision maker: Anson () Smoking packs per day: 1 Smoking cigarettes per day: 20.0 Years smoked: 10 Smoking pack-years: 10.00 Smoking status: Former smoker Tobacco type: cigarettes Second hand tobacco smoke exposure: No Additional smoking assessment comments: 1 PACK/WEEK X 10 YRS Alcohol intake: never Substance use: never Substance use type: does not use Do You Feel Safe in your Home?: Yes Lack of Transportation: No Lack of Food: Never True Current Housing: I Have Housing Concerned About Future Housing: No Difficulty Paying Gas/Electric Bills: No Difficulty Paying for Meds: No Currently Unemployed: No Education: Don't Know Difficulty w/ Childcare or Family Care: No Living arrangements: with family Additional living arrangements comments: HUSB Gender identity (if verbalized by the patient): Female Sexual Orientation (if Verbalized by the Patient): Straight or Heterosexual Spiritual care concerns: No Agree to blood products: Yes Comments At the time of my signature, I reviewed and agree with the nursing past medical, surgical, social, and family history. There is no relevant family history pertinent to the patient complaint. Exam Narrative: General: Well-developed, well nourished, in no apparent distress Head: Normocephalic, atraumatic. Cardio: Regular rate and rhythm, s1 and s2 normal, no murmur appreciated. Resp: Clear to auscultation bilaterally, no rhonchi, rales, wheezing or rubs. Musculoskeletal: No deformity, left distal lateral thumb pain with mild swelling, localized redness, and tender to palpation, no purulent discharge, grossly normal range of motion, muscle strength strong and equal, peripheral pulse strong, no edema, no cyanosis, normal gait and station Course Course Emergency Course: Portions of this record may have been created with voice recognition software. Level of Care: Express Care Visit Vital Signs Vital signs: Vital Signs Temperature 36.6 C 12/29/24 08:43 Pulse Rate 58 L 12/29/24 08:43 Respiratory Rate 16 12/29/24 08:43 Blood Pressure 146/51 H 12/29/24 08:43 Pulse Oximetry 99 12/29/24 08:43 Oxygen Delivery Room Air 12/29/24 08:43 Temperature 36.6 C 12/29/24 08:43 Pulse Rate 58 L 12/29/24 08:43 Respiratory Rate 16 12/29/24 08:43 Blood Pressure 146/51 H 12/29/24 08:43 Pulse Oximetry 99 12/29/24 08:43 Oxygen Delivery Room Air 12/29/24 08:43 Vital signs reviewed MDM - Extremity (Nontraumatic) MDM Narrative Medical decision making narrative: At the time of visit patient is resting comfortably on the exam table. Patient appears to be nontoxic. Plan: I suspect patient has a left ingrown thumb nail infection. Prescription for Keflex was sent to the pharmacy. Supportive measures were discussed with the patient and they voiced understanding discharge instructions and agrees to treatment plan. Return precautions reviewed Differential Diagnosis Differential diagnosis: Likely gout, cellulitis and other (Thumb nail infection due to ingrowing nail) Discharge Plan Discharge Clinical Impression: Infection, nail, ingrowing Patient Disposition: Home Condition: Stable Instructions: Antibiotic Form, Ingrown Nail (ED) Additional Instructions: May soak left thumb in Epson salt and warm water 3-4 times daily May take Tylenol/Motrin as needed for pain Take Keflex as prescribed Follow-up with your primary care doctor next week Patient Language: Kyrgyz Prescriptions: New cephalexin 500 mg capsule 500 mg PO Q8H 7 Days Qty: 21 0RF No Action albuterol sulfate 90 mcg/actuation HFA aerosol inhaler 2 puff inhalation Q4-6H PRN (Reason: shortness of breath or wheezing) 30 Days Qty: 8.5 0RF atorvastatin 80 mg tablet 80 mg PO HS carvedilol 3.125 mg tablet 3.125 mg PO BID clonidine HCl 0.2 mg tablet 0.2 mg PO BID hydralazine 50 mg tablet 50 mg PO TID doxycycline monohydrate 100 mg tablet 100 mg PO BID Qty: 14 0RF aspirin 81 mg Tablet,Delayed Release (Dr/Ec) 81 mg PO DAILY famotidine 20 mg tablet 20 mg PO HS amitriptyline 25 mg tablet 25 mg PO HS amlodipine 5 mg Tablet 5 mg PO BID levothyroxine 50 mcg Tablet 50 mcg PO QAM losartan 100 mg Tablet 100 mg PO QAM Complete Multi 50+ 500-300-250 mcg Tablet 1 tablet PO DAILY Follow-up/Referrals: Tommy,MD Octaviano [Primary Care Provider] - Time of Disposition: 08:56 Quality NIHSS Nursing Documentation ED NIHSS nursing documentation: reviewed/agree
[2024-12-29 08:43] VITALS: BP 146/51; PULSE 58; RESP 16; TEMP 36.6; O2SAT 99
== END 2024-12-29 09:00 | disposition home or self-care (01) ==
PROVIDERS: Emergency Provider Nurse Practitioner Family; PCP Family Medicine
DX: L60.0 Ingrowing nail (principal); Z87.891 Personal history of nicotine dependence; H54.8 Legal blindness, as defined in USA; I10 Essential (primary) hypertension; E78.5 Hyperlipidemia, unspecified; E03.9 Hypothyroidism, unspecified; K21.9 Gastro-esophageal reflux disease without esophagitis; I65.23 Occlusion and stenosis of bilateral carotid arteries; I69.392 Facial weakness following cerebral infarction; I69.311 Memory deficit following cerebral infarction; H53.461 Homonymous bilateral field defects, right side; I69.312 Visuospatial deficit and spatial neglect following cerebral infarction; Z85.828 Personal history of other malignant neoplasm of skin; Z96.1 Presence of intraocular lens; Z98.42 Cataract extraction status, left eye; Z98.41 Cataract extraction status, right eye
CPT/HCPCS: 99213; G0463

== ENCOUNTER 2025-01-03 09:42 | Observation (INO) | payer MEDICARE, SELFPAY ==
[2025-01-03] VITALS (10 sets, daily range): BP systolic 150–184; BP diastolic 50–96; PULSE 69–82; RESP 17–26; TEMP 36.6–36.9; O2SAT 93–100
--- NOTE | ~2025-01-03 | CT_ITS ---
EXAMINATION: CT chest abdomen pelvis w con DATE: 01/03/2025 11:20 INDICATION: Fall with trauma to the lower back 3 days prior TECHNIQUE: Computed tomography (CT) of the chest, abdomen, and pelvis was performed with 100 mL Omnip aque-350 intravenous contrast. Automated exposure control and iterative reconstruction technique were employed. The dose-length product was 630.33 mGy-cm. COMPARISON: Chest CT dated 12/03/[address] abdomen and pelvis dated 06/09/2021 FINDINGS: CHEST CT: Mild biapical pleural-parenchymal scarring. Small posterior layering right pleural effusion. There is mild dependent atelectasis in both lungs. No pneumonia, pulmonary edema or pneumothorax. Small calci fied right middle lobe nodule consistent with old granulomatous disease. Heart size is normal. Athero sclerotic coronary artery calcium location. No pericardial effusion. Thoracic aorta is normal in bekah kyler with no dissection. Status post left thyroidectomy with multiple nodules in the right thyroid lob e measuring up to 1.9 cm. Moderate thoracic spondylosis with chronic mild anterior wedging at T7 and T8. ABDOMEN/PELVIS CT: Liver, gallbladder, spleen, pancreas, bilateral adrenal glands are normal. Mild bilateral hydronephro sis and proximal hydroureter without evident obstructing stone or mass. This could be related to outl et obstruction or neurogenic bladder given the bilaterality in the prominent distention of the bladde r. There are few scattered clonic diverticula without adjacent from trace stranding to suggest divert iculitis. Small bowel and appendix are normal. The uterus is not identified and has likely been surgi gudelia resected. No free intraperitoneal gas or fluid. No pathologically enlarged abdominal or pelvic lymphadenopathy. Mild lower lumbar levocurvature with severe spondylosis. Subcutaneous stranding like ly related to post traumatic contusion at the right flank. Mildly displaced fracture of the posterior right 11th rib and minimally displaced fracture of the posterior right 10th rib. IMPRESSION: 1. Multiple mildly displaced fractures of the posterior right 10th and 11th ribs. 2. Very small right pleural effusion. No pneumothorax. 3. Mild bilateral hydronephrosis and proximal hydroureter without evident obstructing stone or mass w ith prominent distention of the bladder suggesting either bladder outlet obstruction or neurogenic bl adder. 4. Multinodular goiter post prior left thyroidectomy with nodules measuring up to 1.9 cm in the right thyroid lobe. Reviewed, dictated and finalized at location A. IMPRESSION: 1. Multiple mildly displaced fractures of the posterior right 10th and 11th rib s. 2. Very small right pleural effusion. No pneumothorax. 3. Mild bilateral hydronephrosis and proximal hydroureter without evident obstr ucting stone or mass with prominent distention of the bladder suggesting either bladder outlet obstruction or neurogenic bladder. 4. Multinodular goiter post prior left thyroidectomy with nodules measuring up to 1.9 cm in the right thyroid lobe.
--- NOTE | ~2025-01-03 | CT_ITS ---
EXAMINATION: CT brain wo con DATE: 01/03/2025 11:19 INDICATION: Fall TECHNIQUE: Computed tomography (CT) of the head was performed without intravenous contrast. Sagittal and coronal reconstructions were performed. The mA was adjusted according to patient size. Iterative reconstruction technique was employed. The dose-length product was 681.00 mGy-cm. COMPARISON: head CT and MRI dated 07/22/2022 FINDINGS: No fracture. Large region of encephalomalacia involving the left occipital and posterior left tempora l and parietal lobes consistent with sequela of chronic infarct involving the left posterior cerebral artery vascular distribution. Additional small old lacunar infarct at the right caudate nucleus. No acute intracranial hemorrhage, acute infarction or abnormal extra axial fluid collection. There is mi ld scattered white matter hypoattenuation consistent with chronic small vessel ischemic disease. Vent ricles are normal and symmetric. No mass/mass effect. Changes of bilateral intraocular lens replaceme nt. The orbits, paranasal sinuses and mastoid air cells are normal. Intracranial calcified cerebral a therosclerosis is noted. IMPRESSION: 1. No fracture or acute intracranial process. 2. Chronic infarct involving the left posterior cerebral artery vascular distribution additional smal l old lacunar infarct involving the right caudate nucleus. Reviewed, dictated and finalized at location A. IMPRESSION: 1. No fracture or acute intracranial process. 2. Chronic infarct involving the left posterior cerebral artery vascular distri bution additional small old lacunar infarct involving the right caudate nucleus .
--- NOTE | ~2025-01-03 | CT_ITS ---
History: Remote history of trauma PROCEDURE: CT cervical spine without intravenous contrast. COMPARISON: None TECHNIQUE: Multiple contiguous axial images of the cervical spine were performed without the administration of i ntravenous contrast. DLP: 191 mGy-cm FINDINGS: Diffuse bony demineralization is identified. Significant degenerative disease is identified with osteophyte formation, disc space narrowing, endpl ate changes and facet arthropathy. 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 No acute fractures are present. Biapical scarring, right greater than left. Asymmetric enlargement of the right lobe of the thyroid gland. The airway is patent. Impression: Severe degenerative disease, without acute fracture identified. Reviewed, dictated and finalized at location A. Impression: Severe degenerative disease, without acute fracture identified.
--- OUTSIDE RECORDS SUMMARY | 2025-01-03 09:46 | XMS_ITS | Clinical Summary ---
Author Organization [facility] Address [address] [address] Phone Care Team Providers Care Acoustical Tile Drill Press Operator Name Role Phone Regino Husain MD Primary Care Provider [phone] Basil Mondragon MD Unavailable [phone] Allergies Active Allergy Reactions Criticality Noted Date Comments Sulfa (Sulfonamide Antibiotics) Diarrhea,Vomiting Low 08/12/2015 Reaction: vomiting, diarrhea, GI upset- N/V- diarrhea Reaction: vomiting, diarrhea, Medications levothyroxine (SYNTHROID, LEVOTHROID) 50 mcg tablet Take 1 tablet (50 mcg total) by mouth 05/26/20 17 Active clobetasol (TEMOVATE) 0.05 % ointment Apply AM and Hs, Mon-Fri, off weekends, x 4 weeks. 45 g 1 07/20/20 17 Active traZODone (DESYREL) 50 mg tablet Take 1-2 tablets (50-100 mg total) by mouth nightly 07/14/20 22 Active famotidine (PEPCID) 20 mg tablet Take 1 tablet (20 mg total) by mouth nightly 05/21/20 20 Active aspirin 81 mg enteric coated tablet Take 1 tablet (81 mg total) by mouth daily Active benzonatate (TESSALON) 200 mg capsule TAKE 1 CAPSULE BY MOUTH THREE TIMES DAILY NEEDED FOR COUGH 10/17/19 23 Active calcium-vitamin D3-vitamin K 650 mg-12.5 mcg-40 mcg tablet,chewable Take 2 tablets by mouth daily Active doxycycline hyclate 100 mg capsule TAKE 1 CAPSULE BY MOUTH TWICE DAILY FOR 7 DAYS 10/17/19 23 Active amLODIPine (NORVASC) 10 mg tabletIndications:h ypertension Take 1 tablet (10 mg total) by mouth daily 90 tablet 3 03/25/20 24 025 Active atorvastatin (LIPITOR) 80 mg tabletIndications:H yperlipidemia, unspecified hyperlipidemia type Take 1 tablet (80 mg total) by mouth nightly 90 tablet 3 03/25/20 24 025 Active cloNIDine (CATAPRES) 0.1 mg tabletIndications:P rimary hypertension Take 1 tablet (0.1 mg total) by mouth 2 (two) times a day 180 tablet 3 03/25/20 24 025 Active clopidogreL (PLAVIX) 75 mg tabletIndications:C erebral Thromboembolism Prevention Take 1 tablet (75 mg total) by mouth daily 90 tablet 3 03/25/20 24 025 Active hydrALAZINE (APRESOLINE) 50 mg tabletIndications:h ypertension Take 1 tablet (50 mg total) by mouth 3 (three) times a day 270 tablet 3 03/25/20 24 025 Active losartan (COZAAR) 100 mg tabletIndications:P rimary hypertension Take 1 tablet (100 mg total) by mouth daily 90 tablet 3 03/25/20 24 Active carvediloL (COREG) 3.125 mg tabletIndications:P rimary hypertension TAKE 1 TABLET BY MOUTH TWICE DAILY WITH MEALS 180 tablet 1 12/11/19 25 Active carvediloL (COREG) 3.125 mg tabletIndications:P rimary hypertension Take 1 tablet (3.125 mg total) by mouth 2 (two) times a day with meals 180 tablet 2 03/25/20 24 025 Discontinued Active Problems Problem Noted Date Diagnosed Date Nonrheumatic aortic valve stenosis 01/03/2024 AMD (age-related macular degeneration), bilatera l 11/04/2022 Assessment & Plan (11/04/2022 11:55 AM CDT): Continue areds and amsler FU with Dr Davenport Homonymous hemianopsia due t o recent cerebrovascular accident 08/17/2022 Assessment & Plan (11/04/2022 11:56 AM CDT): Right HH. Referred patient to [facility] for assistance with ADLS Transient ischemic attack 08/11/2022 Insomnia 08/10/2022 Overview (08/10/2022): Was able to stop nightly ambien Last Assessment & Plan: Monitor off medication Hyperlipidemia 08/10/2022 Overview (08/10/2022): Compliant with med/diet. No myalgia. Last Assessment & Plan: Check lipid panel Uncontrolled stage 2 hypertension 08/10/2022 Overview (08/10/2022): . BP controlled at home. No crowder/cp/palpitation Last Assessment & Plan: Continue current medication Hypothyroidism 08/10/2022 Overview (08/10/2022): Compliant with med. Weight/energy ok. Last Assessment & Plan: Check tsh/t4 Symptomatic carotid artery stenosis 07/22/2022 Hyperglycemia 11/05/2021 Overview (08/10/2022): Working on diet Last Assessment & Plan: Check labs Gastroesophageal reflux disease without esophagi tis 04/30/2021 Overview (08/10/2022): Doing well with prn pepcid Last Assessment & Plan: Continue pepcid Atherosclerosis of aorta 12/26/2015 Overview (08/10/2022): Shown on most recent imaging: CT lumbar/spine 03.21.12 Last Assessment & Plan: asymptomatic Hypothyroidism 12/22/2013 Overview (11/11/2016): HYPOTHYROIDISM NOS Hypertension 12/22/2013 Overview (11/11/2016): HYPERTENSION NOS Benign hypertension 12/22/2013 Overview (11/12/2016): BENIGN HYPERTENSION Osteoporosis 12/22/2013 Overview (11/12/2016): OSTEOPOROSIS NOS Impaired fasting glucose 12/22/2013 Overview (11/12/2016): IMPAIRED FASTING GLUCOSE Hyperlipidemia 12/22/2013 Overview (11/12/2016): HYPERLIPIDEMIA NEC/NOS Cerebrovascular accident (CVA) Assessment & Plan (11/04/2022 11:59 AM CDT): Secondary right homonymous hemianopia, discussed possibility of mild recovery, but most likely visual field (VF) loss is permanent FU with neurology Bilateral carotid artery stenosis Assessment & Plan (07/13/2023 10:01 AM ROOM CLEANER): Bilateral carotid artery stenosis status post left endarterectomy 10/04/2022. She continues to do well. Did not remains asymptomatic. Current duplex shows moderate stenosis to the right internal carotid artery. Maintains compliance with medications. Plan: Follow-up for routine surveillance with a carotid duplex 6 months. Assessment & Plan (10/21/2022 2:50 PM CDT): Extra bilateral carotid artery stenosis recently underwent a left carotid endarterectomy for a left hemispheric CVA on 10/04/2022. She is recovering well denies any current complaints or issues. She continues to have some deficits from her stroke including difficulty finding words and homonymous hemianopsia. Seen with Dr. Mondragon. Plan: Follow-up in 2 months with a new baseline carotid duplex. Stage 2 chronic kidney disease Leukocytosis Hyponatremia Immunizations Immunization Administration Dates Next Due H1N1 All Forms 08/21/2009 Influenza, Quad, Adjuvantate d, Intramuscular 05/13/2022 Influenza, Quadrivalent, Hig h Dose, Preservative Free, Intrr 05/14/2021 Influenza, Quadrivalent, Spl it, Preservative Free, Intramuscular 05/21/2020 Influenza, Trivalent, High D ose, Split, Preservative Free, Intramuscular 05/16/2019,05/07/2018,05/14/2017,06/05,05/28/2015 Influenza, Trivalent, IM (MDV) 05/29/2013,2010 Influenza, Unspecified 05/14/2019,2017,06/08/2016,05/29,06/02/2014 Pneumococcal Conjugate PCV 13 06/19/2015 Pneumococcal Polysaccharide PPV23 07/07/2017,08/2010,03/26/2009 Td, adsorbed 07/28/2009,11/06/2001 Tdap 2020,08/08/2010 ZOSTER LIVE 02/05/2014,12/21/2012 ZOSTER Recombinant 03/09/2018,12/07/2017 Surgical History Surgery Date Site/Laterality Comments BLADDER REPAIR 08/08/2004 - 08/07/2005 bladder repair HYSTERECTOMY Hysterectomy OTHER SURGICAL HISTORY 08/08/2004 - 08/07/2005 CAD: cath OTHER SURGICAL HISTORY Osteoporosis: reclast 2009,2010 COLONOSCOPY W/ POLYPECTOMY multiple colonoscopies, some polyps removed LITHOTRIPSY CYSTOSCOPY W/ STONE MANIPULATION history of 3 kidney stones, one removed with litho, one passed on own SKIN CANCER EXCISION left ankle- broken open x 2, healed at this time THYROIDECTOMY Left Medical History Medical History Date Comments Hx Other Medical -HIMS MANAGER Calculus of kidney nephrolithias is Polyp of colon 2002 colon polyps Hx Other Medical CAD Hx Other Medical Hypothyroidism, Primary Hyperlipidemia Hyperlipidemia Hypertension Hypertension Osteoporosis Osteoporosis High cholesterol Hypothyroidism Stroke (HCC) TIA Jul 22, 2022 left sided numbness and vision effected, Aug 2022-left eye effected, speech clear, but slower to respond pt states Eye hemorrhage, left 2012 surgical ey e surgery- some vision, blurry, wear glasses, do not help Full dentures implants upper a nd lower Arthritis PVD (peripheral vascular disease) bilat legs/feet Tingling mostly left foot Difficulty swallowing pills get pills, caught in throat,denies problems swallowing food Carotid stenosis bilat, two rece nt mini strokes, carotid endart scheduledwith Dr Mondragon. Aortic stenosis Family History Medical History Relation Name Comments Coronary artery disease Other 1 Fami ly history of Coronary artery disease; Other Other 2 Family history of Cancer -thyroid; Diabetes type II Other 3 Family hist ory of Diabetes -Type 2; Relation Name Status Comments Other 1 Other 2 Other 3 Social History Tobacco Use Types Packs/Day Years Used Date Smoking Tobacco: Former Cigarettes 0.3 5 0 08/08/1954 - 08/08/1959 Smokeless Tobacco: Never Tobacco Cessation:Counseling Given: Not Answered Comments:Patient states its been over 50 years ago Alcohol Use Standard Drinks/Week Comments Yes 0 (1 standard drink = 0.6 oz pur e alcohol) Social Connection and Isolat ion Panel [NHANES] Answer Date Recorded In a typical week, how many times do you talk on the phone with family, friends, or neighbors? More than three times a week 10/05/2022 How often do you get togethe r with friends or relatives? More than three times a week 10/05/2022 How often do you attend chur ch or yazidism services? More than 4 times per year 10/05/2022 Do you belong to any clubs o r organizations such as confucianism groups, unions, fraternal or athletic groups, or school groups? Yes 10/05/2022 How often do you attend meet ings of the clubs or organizations you belong to? More than 4 times per year 10/05/2022 Are you , , di vorced, , never , or living with a partner? 10/05/2022 AUDIT-C Answer Date Recorded Q1: How often do you have a drink containing alcohol? Never 10/04/2022 Q2: How many drinks containi ng alcohol do you have on a typical day when you are drinking? Patient does not drink Q3: How often do you have si x or more drinks on one occasion? Never 10/04/2022 Overall Financial Resource Strain (CARDIA) Answe r Date Recorded How hard is it for you to pa y for the very basics like food, housing, medical care, and heating? Not hard at all 10/05/2022 Hunger Vital Sign Answer Date Recorded Within the past 12 months, y ou worried that your food would run out before you got the money to buy more. Never true 10/05/19 23 Within the past 12 months, t he food you bought just didn't last and you didn't have money to get more. Never true 10/05/2022 PRAPARE - Transportation Answer Date Re corded In the past 12 months, has l ack of transportation kept you from medical appointments or from getting medications? No 09/09 In the past 12 months, has l ack of transportation kept you from meetings, work, or from getting things needed for daily living? No 10/05/2022 Housing Stability Vital Sign Answer Jaret e Recorded In the last 12 months, was t here a time when you were not able to pay the mortgage or rent on time? No 10/05/2022 Number of Places Lived in the Last Year Not on f ile 10/05/2022 In the last 12 months, was t here a time when you did not have a steady place to sleep or slept in a residential (including now)? No 10/05/2022 Personal Safety Answer Date Recorded Getting School Help Needed Denies 08/10 Comments No Sex and Gender Information Value Date Recorded Sex Assigned at Not on file Legal Sex Female 1:51 PM ROOM CLEANER Gender Identity Not on file Sexual Orientation Not on file Obstetrics History Para Term AB IAB SAB Ectopic Multiple Livin g Live Births 2 2 2 2 2 Date Outcome GA Total Labor Labor/2nd/3rd Weight Sex Type Anes PTL Bre A1 A5 Name Clin Term M Vag-S pont Living Term M Vag-S pont Living Last Filed Vital Signs Vital Sign Reading Time Taken Comments Blood Pressure 124/50 03/05/2024 10:01 AM CDT Pulse 55 03/05/2024 10:01 AM CDT Temperature 36.7 C (98.1 F) 10/05/2022 11:00 AM ROOM CLEANER Respiratory Rate 16 10/05/2022 11:00 AM ROOM CLEANER Oxygen Saturation 94% 03/05/2024 10:01 AM CDT Inhaled Oxygen Concentration - - Weight 73 kg (161 lb) 03/05/2024 10:01 AM CDT Height 167.6 cm (5' 6) 03/05/2024 10:01 AM CDT Body Mass Index 25.99 03/05/2024 10:01 AM CDT Plan of Treatment Health Maintenance Due Date Last Done Comments Depression Screening 1935 Hepatitis B Screening 1953 Well Visit 65+ 2001 Fall Risk Assessment 10/05/2023 10/05/2022 Covid-19 Vaccine (5 - 2023-2 5 season) 2024 05/13/2022, 05/14/2021, 09/24/2020, Additional history exists Influenza Vaccine (Season Ended) 2025 05/13/2022, 05/14/2021, 05/21/2020, Additional history exists DTaP/Tdap/Td Vaccine (3 - Td or Tdap) 2030 2020, 08/08/2010, 07/28/2009, Additional history exists Pneumococcal vaccine 65+ Completed 017, 06/19/2015, 08/08/2010, Additional history exists Zoster Vaccine Completed 03/09/2018, 09/2017, 02/05/2014, Additional history exists Medical Devices Implanted Type Area Lead Atg Developer Device Identifier Shelf Expiration Date Model / Serial / Lot Dental Implant Mouth [employer] Weck Horizon 24 Cartridge Ligate Triangulate Cross Section Heart [id number] - [id number] Implanted:Qty: 1 on 10/04/2022 by Basil Mondragon MD at [facility] [employer] [id number] / / [employer] Vascu-Guard 8x.8cm Peripheral Patch Vascular Bovine Pericardium [id number] - [id number] Implanted:Qty: 1 on 10/04/2022 by Basil Mondragon MD at [facility] Left: Carotid [employer] [id number] 04/22/2027 [id number] / / [id number] Insurance [place] ADVANTRA AETNA MEDICARE GOLD AETNA MEDICARE GOLD AETNA MEDICARE GOLD Advance Directives For more information, please contact: [phone] * Full Code (Latest Code Status on File) Date Activated Date Inactivated Comments 10/04/2022 3:15 PM 10/05/2022 7:21 PM * Full Code Date Activated Date Inactivated Comments 08/17/2022 9:13 PM 08/24/2022 8:24 PM Care Teams Acoustical Tile Drill Press Operator Relationship Specialty Start Date End Date Regino Husain MD PCP - General 12/28/07 Basil Mondragon MD [id number] [facility] [address] [address] Consulting Physician Vascular Surgery 10/05/22
--- OUTSIDE RECORDS SUMMARY | 2025-01-03 09:46 | XMS_ITS | Encounter Summary ---
Author Organization [facility] Healthcare Address [address] [place] [address] Care Team Providers Care Assistant Teacher Name Role Phone Regino Husain MD Primary Care Provider [phone] Basil Mondragon MD Unavailable [phone] Encounter Details Date Type Department Care Team (Late st Contact Info) Description 09/28/2022 Telephone [facility] Cardiac [facility] Sorter [address] [place] [address] Marga Osorio, RN Social History Tobacco Use Types Packs/Day Years Used Date Smoking Tobacco: Former Cigarettes 0.3 5 0 08/08/1954 - 08/08/1959 Smokeless Tobacco: Never Comments:Patient states its been over 50 years ago Alcohol Use Standard Drinks/Week Comments Yes 0 (1 standard drink = 0.6 oz pur e alcohol) Social Connection and Isolat ion Panel [NHANES] Answer Date Recorded In a typical week, how many times do you talk on the phone with family, friends, or neighbors? More than three times a week 08/18/2022 How often do you get togethe r with friends or relatives? More than three times a week 08/18/2022 How often do you attend chur ch or yazdanism services? More than 4 times per year 08/18/2022 Do you belong to any clubs o r organizations such as presybeterian groups, unions, fraternal or athletic groups, or school groups? Yes 08/18/2022 How often do you attend meet ings of the clubs or organizations you belong to? 1 to 4 times per year 08/18/2022 Are you , , di vorced, , never , or living with a partner? 08/18/2022 AUDIT-C Answer Date Recorded Q1: How often do you have a drink containing alcohol? Never 09/20/2022 Q2: How many drinks containi ng alcohol do you have on a typical day when you are drinking? Patient does not drink Q3: How often do you have si x or more drinks on one occasion? Never 09/20/2022 Overall Financial Resource Strain (CARDIA) Answe r Date Recorded How hard is it for you to pa y for the very basics like food, housing, medical care, and heating? Not hard at all 08/18/2022 Hunger Vital Sign Answer Date Recorded Within the past 12 months, y ou worried that your food would run out before you got the money to buy more. Never true 08/18/19 23 Within the past 12 months, t he food you bought just didn't last and you didn't have money to get more. Never true 08/18/2022 PRAPARE - Transportation Answer Date Re corded In the past 12 months, has l ack of transportation kept you from medical appointments or from getting medications? No 08/08 In the past 12 months, has l ack of transportation kept you from meetings, work, or from getting things needed for daily living? No 08/18/2022 Housing Stability Vital Sign Answer Jaret e Recorded In the last 12 months, was t here a time when you were not able to pay the mortgage or rent on time? No 08/18/2022 In the last 12 months, how many places have you lived? 1 08/18/2022 In the last 12 months, was t here a time when you did not have a steady place to sleep or slept in a penitentiary (including now)? No 08/18/2022 Comments No Sex and Gender Information Value Date Recorded Sex Assigned at Not on file Legal Sex Female 1:51 PM CERTIFIED ORTHOPTIST Gender Identity Not on file Sexual Orientation Not on file documented as of this encounter Plan of Treatment Not on file documented as of this encounter Visit Diagnoses Not on filedocumented in this encounter Care Teams Assistant Teacher Relationship Specialty Start Date End Date Regino Husain MD PCP - General 12/28/07 Basil Mondragon MD [address] [facility] [place] [address] [address] Consulting Physician Vascular Surgery 10/05/22 documented as of this encounter
--- OUTSIDE RECORDS SUMMARY | 2025-01-03 09:46 | XMS_ITS | Referral Summary ---
Author Organization [facility] Address [address] [address] Phone Care Team Providers Care Data Integrity Specialist Name Role Phone Regino Husain MD Primary Care Provider [phone] Basil Mondragon MD Unavailable [phone] Allergies Active Allergy Reactions Criticality Noted Date [...] AM CDT): Right HH. Referred patient to [facility] [...] stenosis Assessment & Plan (07/13/2023 10:01 AM TEACHER ADVISOR): Bilateral carotid artery stenosis status post left [...] 2020,08/08/2010 [facility] LIVE 02/05/2014,12/21/2012 [facility] Recombinant 03/09/2018,12/07/2017 Social History Tobacco Use Types Packs/Day Years [...] 10/05/2022 How often do you attend chur or scientologist services? More than 4 times per year 10/05/2022 Do you belong to any clubs o r organizations such as buddhism groups, unions, fraternal or athletic groups, or [...] place to sleep or slept in a retirement (including now)? No 10/05/2022 Personal Safety Answer Date Recorded Getting School Help Needed Denies 08/10 Comments No Sex and Gender Information Value Date Recorded Sex Assigned at Not on file Legal Sex Female 1:51 PM TEACHER ADVISOR Gender Identity Not on file Sexual Orientation Not on file Last Filed Vital Signs Vital Sign Reading Time Taken Comments Blood Pressure 124/50 03/05/2024 10:01 AM CDT Pulse 55 03/05/2024 10:01 AM CDT Temperature 36.7 C (98.1 F) 10/05/2022 11:00 AM TEACHER ADVISOR Respiratory Rate 16 10/05/2022 11:00 AM TEACHER ADVISOR Oxygen Saturation 94% 03/05/2024 10:01 AM CDT Inhaled Oxygen Concentration - - Weight 73 kg (161 lb) 03/05/2024 10:01 AM CDT Height 167.6 cm (5' 6) 03/05/2024 10:01 AM CDT Body Mass Index 25.99 03/05/2024 10:01 AM CDT Plan of Treatment Not on file Medical Devices Implanted Type Area Pipe Coremaker Device Identifier Shelf Expiration Date Model / Serial / Lot Dental Implant Mouth [employer] Horizon 24 Cartridge Ligate Triangulate Cross Section Heart [id number] - [id number] Implanted:Qty: 1 on 10/04/2022 by Basil Mondragon MD at [facility] [employer] [id number] / / [employer] Vascu-Guard 8x.8cm Peripheral Patch Vascular Bovine Pericardium [id number] - [id number] Implanted:Qty: 1 on 10/04/2022 by Basil Mondragon MD at [facility] Left: Carotid [employer] [id number] 04/22/2027 [id number] / / [id number] Insurance [facility] AETNA MEDICARE GOLD AETNA MEDICARE GOLD AETNA MEDICARE GOLD Advance Directives For more information, please contact: [phone] * Full Code (Latest Code Status on File) Date Activated Date Inactivated Comments 10/04/2022 3:15 PM 10/05/2022 7:21 PM * Full Code Date Activated Date Inactivated Comments 08/17/2022 9:13 PM 08/24/2022 8:24 PM Care Teams Data Integrity Specialist Relationship Specialty Start Date End Date Regino Husain MD PCP - General 12/28/07 Basil Mondragon MD [address] [facility] [address] [address] Consulting Physician Vascular Surgery 10/05/22
--- OUTSIDE RECORDS SUMMARY | 2025-01-03 09:46 | XMS_ITS | Encounter Summary ---
Author Organization [facility] Address [address] [place] [address] Care Team Providers Care Knife Cutter Name Role Phone Regino Husain MD Primary Care Provider Moe Gibson MD Unavailable [phone] Delroy Conrad MD Unavailable [phone] Basil Mondragon MD Unavailable [phone] Brooke Nath MA Unavailable [phone] Basil Mondragon MD Unavailable [phone] Reason for Visit * Reason Onset Date Comments Medicare Subsequent Annual Wellness Visit 2023 Left message Encounter Details Date Type Department Care Team (Late st Contact Info) Description 04/10/2024 Telephone [facility] [address] [address] Regino Husain MD [address] [place] [phone] Medicare Subsequent Annual Wellness Visit (Left message/) Social History Tobacco Use Types Packs/Day Years Used Date Smoking Tobacco: Former Cigarettes Q uit: 08/08/1963 Passive Smoke Exposure: Past Smokeless Tobacco: Never Alcohol Use Standard Drinks/Week Comments No 0 (1 standard drink = 0.6 oz pur e alcohol) AUDIT-C Answer Date Recorded Q1: How often do you have a drink containing alcohol? Never 03/07/2024 Q2: How many drinks containi ng alcohol do you have on a typical day when you are drinking? Patient does not drink Q3: How often do you have si x or more drinks on one occasion? Never 03/07/2024 PHQ-2 Answer Date Recorded Patient Health Questionnaire-2 Score 0 11/30/2023 Comments No Sex and Gender Information Value Date Recorded Sex Assigned at Not on file Legal Sex Female 6:29 AM PIE BAKER Gender Identity Not on file Sexual Orientation Not on file documented as of this encounter Functional Status * Is person deaf or have serious hearing difficulty? Answer Date of Assessment Author No 09/04/2018 9:22 AM Radha Richards RN * Is person blind or have serious difficulty seeing? Answer Date of Assessment Author No 09/04/2018 9:22 AM Radha Richards RN * Does person have serious difficulty walking/climbing stairs? Answer Date of Assessment Author No 09/04/2018 9:22 AM Radha Richards RN * Does person have difficulty dressing/bathing? Answer Date of Assessment Author No 09/04/2018 9:22 AM Radha Richards RN * Does person have difficulty doing errands alone? Answer Date of Assessment Author No 09/04/2018 9:22 AM Radha Richards RN documented as of this encounter Plan of Treatment Upcoming Encounters Date Type Department Care Team (Late st Contact Info) Description 04/02/2025 1:20 PM CDT Office Visit [facility] - Internal Medicine [address] [place] [id number] Regino Husain MD [address] [place] [phone] documented as of this encounter Goals Goal Patient Goal Type Associated Problems Recent Progress Patient-Stated? Author Blood Pressure < 140/90 Blood Pressure 114/74(2024 11:07 AM PIE BAKER) Linda Downing LDL JADE < 130 Result Component 70(09/11/2024 10:00 AM PIE BAKER) Linda Downing documented as of this encounter Visit Diagnoses Not on filedocumented in this encounter Care Teams Knife Cutter Relationship Specialty Start Date End Date Regino Husain MD [address] [facility] [address] [place] [address] PCP - General Internal Medicine 12/11/13 Moe Gibson MD [address] [phone] PCP - Attributed-Critical access hospital 10/06/22 Delroy Conrad MD [address] [id number] Golf Sales Associate Cardiology 11/30/23 Basil Mondragon MD [address] [facility] [address] [place] [address] [place] [phone] Surgery 11/30/23 08/21/24 Brooke Nath MA Care Coordination Specialist 04/30/24 05/01/24 Basil Mondragon MD [address] [facility] [address] [place] [address] [place] [id number] Surgery 08/22/24 documented as of this encounter
--- OUTSIDE RECORDS SUMMARY | 2025-01-03 09:46 | XMS_ITS | Clinical Summary ---
Author Organization [facility] Address [address] [place] [address] Care Team Providers Care Coremaking Machine Setter Name Role Phone Regino Husain MD Primary Care Provider [phone] Moe Gibson MD Unavailable [phone] Delroy Conrad MD Unavailable [phone] Basil Mondragon MD Unavailable [phone] Source Comments [facility],non-owned Affiliates and Associated Physician Practices is amultiple site organization consisting of ambulatory clinics and hospital sitesin [place], [place], [place] and [place]. This disclosure is being madepursuant to the Care Everywhere program and may not contain all information available regarding this patient. Last updated 18.[facility] Allergies No known active allergies Medications * Be aware that medications may not be up to date on this document. Alwaysverify current medications with the patient. famotidine (PEPCID) 20 MG tablet Take 1 tablet by mouth at bedtime 90 tablet 4 0 Active clopidogrel (plaVIX) 75 MG tablet Take 1 (one) tablet by mouth once daily 3 Active aspirin (Aspirin) 81 MG chew tablet Take 1 (one) tablet by mouth once daily 100 tablet 4 3 Active levothyroxine (Synthroid) 50 MCG tablet Take 1 (one) tablet by mouth daily before breakfast Take in the morning on an empty stomach. Do not give within 4 hours of antacids, iron or calcium supplements. 90 tablet 3 3 Active atorvastatin (Lipitor) 80 MG tabletIndicatio ns:Hyperlipidem ia Take 1 (one) tablet by mouth at bedtime Reasons: High Amount of Fats in the Blood 90 tablet 3 4 Active hydrALAZINE (Apresoline) 50 MG tablet Take 1 (one) tablet by mouth 3 times daily 270 tablet 3 4 Active amLODIPine (Norvasc) 10 MG tablet Take 1 (one) tablet by mouth once daily 90 tablet 3 4 Active cloNIDine (Catapres) 0.1 MG tablet Take 1 (one) tablet by mouth 2 times daily 4 Active amitriptyline (Elavil) 25 MG tablet Take 1 (one) tablet by mouth at bedtime 90 tablet 4 4 Active losartan (Cozaar) 100 MG tabletIndicatio ns:Hypertension Take 1 (one) tablet by mouth once daily Reasons: High Blood Pressure Disorder 90 tablet 3 4 Active carvedilol (Coreg) 3.125 MG tablet Take 1 (one) tablet by mouth 2 times daily with morning and evening meal Active zolpidem (Ambien) 5 MG tablet Take 1 (one) tablet by mouth every other day as needed for Insomnia 30 tablet 3 5 Active metFORMIN (Glucophage) 500 MG tabletIndicatio ns:Type 2 diabetes mellitus without complication, without long-term current use of insulin (HCC) Take 1 (one) tablet by mouth once daily 90 tablet 3 5 Active traZODone (Desyrel) 50 MG tablet Take 1 (one) tablet by mouth at bedtime 90 tablet 3 5 Active Active Problems Problem Noted Date Diagnosed Date Type 2 diabetes mellitus wit hout complication, without long-term current use of insulin 09/12/2024 Overview (09/12/2024): A1C 7.3. Venous insufficiency 02/20/2024 Cerebrovascular accident (CVA) due to thrombosis 11/18/2022 Overview (11/18/2022): Distal left MCA- right sided weakness/vision changes/memory changes Assessment & Plan (08/22/2024 11:16 AM TENTMAKER): Continue asa Assessment & Plan (11/30/2023 9:10 AM CDT): Continue asa Assessment & Plan (05/27/2023 10:46 AM CDT): Continue asa/plavix Assessment & Plan (11/18/2022 10:11 AM CDT): Continue sa/plavix- start physical therapy/ot Bilateral carotid artery stenosis 09/08/2022 Overview (02/28/2023): Left carotid stenosis Post-op (DAGMAR Carotid stenosis, acute CVA Carotid endart 10/04/22/) Symptomatic carotid artery stenosis, unspecified laterality 07/22/2022 Overview (11/18/2022): SP CEA 09/2022 Assessment & Plan (05/27/2023 10:48 AM CDT): Continue asa/plavix Assessment & Plan (11/18/2022 10:06 AM CDT): Continue asa/plavix Gastroesophageal reflux disease without esophagi tis 04/30/2021 Overview (04/30/2021): Doing well with prn pepcid Assessment & Plan (08/22/2024 11:16 AM TENTMAKER): Continue pepcid Assessment & Plan (05/27/2023 10:47 AM CDT): Continue prn pepcid Assessment & Plan (11/18/2022 10:11 AM CDT): Continue pepcid Assessment & Plan (05/13/2022 10:12 AM CDT): Continue pepcid Assessment & Plan (11/05/2021 2:47 PM CDT): Continue pepcid Assessment & Plan (04/30/2021 10:23 AM CDT): Continue pepcid Atherosclerosis of aorta 12/26/2015 Overview (12/02/2017): Shown on most recent imaging: CT lumbar/spine 08.14.12 Assessment & Plan (11/30/2023 9:11 AM CDT): asymptomatic Assessment & Plan (11/18/2022 10:13 AM CDT): asymptomatic Assessment & Plan (11/05/2021 2:47 PM CDT): asymptomatic Assessment & Plan (04/30/2021 10:22 AM CDT): asymptomatic Assessment & Plan (11/23/2018 1:20 PM CDT): asymptomatic Assessment & Plan (12/08/2017 9:00 AM CDT): asymptomatic Assessment & Plan (01/06/2017 1:19 PM CDT): asymptomatic Assessment & Plan (10/21/2016 1:55 PM CDT): asymptomatic Assessment & Plan (01/01/2016 1:24 PM CDT): asymptomatic Insomnia Overview (08/22/2024): limited success with trazodone Was able to stop nightly ambien Assessment & Plan (08/22/2024 11:17 AM TENTMAKER): Try qod ambien/trazodone Assessment & Plan (05/27/2023 10:50 AM CDT): Switch to elavil, consider gabapentin, alternating Assessment & Plan (01/17/2020 10:45 AM CDT): Monitor off medication Assessment & Plan (06/14/2019 1:55 PM TENTMAKER): Continue current medication. Assessment & Plan (11/23/2018 1:20 PM CDT): Continue current medication. Try taking 1/2 tab weekly Assessment & Plan (12/08/2017 9:00 AM CDT): Continue current medication. Assessment & Plan (12/10/2014 3:20 PM CDT): Continue current med/dose. Assessment & Plan (06/13/2014 12:02 PM TENTMAKER): Continue current med/dose. Assessment & Plan (12/11/2013 11:37 AM CDT): Continue current med/dose. Hypothyroidism Overview (01/06/2017): Compliant with med. Weight/energy ok. Assessment & Plan (08/22/2024 11:16 AM TENTMAKER): Check tsh/t4 Assessment & Plan (11/30/2023 9:10 AM CDT): Check tsh/t4 Assessment & Plan (05/27/2023 10:46 AM CDT): Check tsh/t4 Assessment & Plan (11/18/2022 10:08 AM CDT): Check tsh/t4 Assessment & Plan (05/13/2022 10:11 AM CDT): Check tsh/t4 Assessment & Plan (11/05/2021 2:47 PM CDT): Check tsh/t4 Assessment & Plan (04/30/2021 10:22 AM CDT): Check tsh/t4 Assessment & Plan (10/23/2020 10:40 AM CDT): Check tsh/t4 Assessment & Plan (05/21/2020 11:12 AM CDT): Check tsh/t4 Assessment & Plan (04/24/2020 10:07 AM CDT): Check labs and adjust medication accordingly. Assessment & Plan (01/17/2020 10:45 AM CDT): Check labs and adjust medication accordingly. Assessment & Plan (06/14/2019 1:55 PM TENTMAKER): Check tsh/t4 Assessment & Plan (11/23/2018 1:19 PM CDT): Check tsh/t4 Assessment & Plan (06/22/2018 10:58 AM TENTMAKER): Check tsh/t4 Assessment & Plan (12/08/2017 9:00 AM CDT): Check tsh/t4 Assessment & Plan (07/07/2017 1:15 PM TENTMAKER): Check tsh/t4 Assessment & Plan (01/06/2017 1:19 PM CDT): Check tsh/t4 Assessment & Plan (07/08/2016 1:18 PM TENTMAKER): Continue current medication. Assessment & Plan (01/01/2016 1:23 PM CDT): Check tsh/t4 Assessment & Plan (06/19/2015 11:10 AM TENTMAKER): Check tsh/t4. Assessment & Plan (12/10/2014 3:19 PM CDT): Check labs and adjust medication accordingly. Assessment & Plan (06/13/2014 12:01 PM TENTMAKER): Check labs and adjust medication accordingly. Assessment & Plan (12/11/2013 11:36 AM CDT): Check labs and adjust medication accordingly. HTN (hypertension) Overview (05/13/2022): . BP controlled at home. No crowder/cp/palpitation Assessment & Plan (08/22/2024 11:14 AM TENTMAKER): Continue current medication Assessment & Plan (11/30/2023 9:09 AM CDT): Continue current medication Assessment & Plan (05/27/2023 10:44 AM CDT): Continue current medication Assessment & Plan (11/18/2022 10:07 AM CDT): Continue norvasc/coreg/losartan/hydralazine Assessment & Plan (05/13/2022 10:10 AM CDT): Continue current medication Assessment & Plan (11/05/2021 2:45 PM CDT): Continue norvasc/cozaar Assessment & Plan (04/30/2021 10:21 AM CDT): Resume cozaar Assessment & Plan (10/23/2020 10:47 AM CDT): Check home blood pressure on different monitor, switch amlodipine at bedtime,Increase amlodipine to 10 mg if readings elevated Assessment & Plan (05/21/2020 11:10 AM CDT): Continue current medication. Assessment & Plan (04/24/2020 10:11 AM CDT): Increase amlodipine to 5 mg bid, call with readings in 2-3 weeks Assessment & Plan (01/17/2020 10:44 AM CDT): May need to increase amlodipine dose Assessment & Plan (06/14/2019 1:53 PM TENTMAKER): Continue current medication. Assessment & Plan (11/23/2018 1:19 PM CDT): Continue current medication. Assessment & Plan (06/22/2018 10:58 AM TENTMAKER): Switch to amlodipine 5 mg qd, may need higher dose Assessment & Plan (12/08/2017 9:08 AM CDT): Increase toprol to bid Assessment & Plan (07/07/2017 1:13 PM TENTMAKER): Continue current medication. Assessment & Plan (01/06/2017 1:05 PM CDT): Continue present medication. Assessment & Plan (07/08/2016 1:17 PM TENTMAKER): Continue current medication. Assessment & Plan (01/01/2016 1:23 PM CDT): Continue current medication. Assessment & Plan (06/19/2015 11:09 AM TENTMAKER): Continue current medication. Assessment & Plan (12/10/2014 3:27 PM CDT): Switch norvasc to metoprolol due le edema Assessment & Plan (06/13/2014 12:01 PM TENTMAKER): Continue current med/dose. Assessment & Plan (12/11/2013 11:36 AM CDT): Continue current med/dose. Hyperlipidemia Overview (05/21/2020): Compliant with med/diet. No myalgia. Assessment & Plan (08/22/2024 11:15 AM TENTMAKER): Check lipid/liver Assessment & Plan (11/30/2023 9:10 AM CDT): Check lipid/iver Assessment & Plan (05/27/2023 10:45 AM CDT): Check lipid/liver Assessment & Plan (11/18/2022 10:08 AM CDT): Check lipid/liver Assessment & Plan (05/13/2022 10:11 AM CDT): Check lipid panel Assessment & Plan (11/05/2021 2:45 PM CDT): Check lipid/liver panel Assessment & Plan (04/30/2021 10:21 AM CDT): Check labs Assessment & Plan (10/23/2020 10:41 AM CDT): Check lipid panel, adjust zocor if needed Assessment & Plan (05/21/2020 11:10 AM CDT): Check labs and adjust medication accordingly. Assessment & Plan (04/24/2020 10:11 AM CDT): Continue current medication. Stricter low sugar/carbohydrate diet Assessment & Plan (01/17/2020 10:45 AM CDT): Check labs and adjust medication accordingly. Assessment & Plan (06/14/2019 1:54 PM TENTMAKER): Check labs and adjust medication accordingly. Assessment & Plan (11/23/2018 1:19 PM CDT): Check labs and adjust medication accordingly. Assessment & Plan (06/22/2018 10:58 AM TENTMAKER): Check labs and adjust medication accordingly. Assessment & Plan (12/08/2017 9:00 AM CDT): Check labs and adjust medication accordingly. Assessment & Plan (07/07/2017 1:15 PM TENTMAKER): Check labs and adjust medication accordingly. Assessment & Plan (01/06/2017 1:18 PM CDT): Check labs and adjust medication accordingly. Assessment & Plan (07/08/2016 1:18 PM TENTMAKER): Continue current medication. Assessment & Plan (01/01/2016 1:24 PM CDT): Check labs and adjust medication accordingly. Assessment & Plan (06/19/2015 11:10 AM TENTMAKER): Check labs and adjust medication accordingly. Assessment & Plan (12/10/2014 3:20 PM CDT): Check labs and adjust medication accordingly. Assessment & Plan (06/13/2014 12:01 PM TENTMAKER): Check labs and adjust medication accordingly. Assessment & Plan (12/11/2013 11:34 AM CDT): Check labs and adjust medication accordingly. Resolved Problems Problem Noted Date Diagnosed Date Resolved Date Venous ulcer of ankle, left 02/20/2024 08/22/2024 Hyperglycemia 11/05/2021 09/12/2024 Overview (11/05/2021): Working on diet Assessment & Plan (08/22/2024 11:16 AM TENTMAKER): Check labs Assessment & Plan (11/30/2023 9:11 AM CDT): Check labs Assessment & Plan (05/27/2023 10:47 AM CDT): Check labs Assessment & Plan (11/18/2022 10:11 AM CDT): Check labs Assessment & Plan (05/13/2022 10:12 AM CDT): Check labs Assessment & Plan (11/05/2021 2:46 PM CDT): Check labs Encounters Date Type Department Care Team Description 10/26/2024 Refill [facility] - Internal Medicine [address] [place] [address] Regino Husain MD Refill Request from Last 3 Months Immunizations Immunization Administration Dates Next Due COVID PFIZER 12+YR 30MCG/0.3mL 05/27/2023 COVID PFIZER BIVALENT 12Y+ 30mcg/0.3ML 05/13/2022 Covid Pfizer primary monoval ent 12+ yr 0.3mL Purple cap 09/24/2020,09/03/2020,09/03/2020 INFLUENZA VACCINE 05/14/2019, 8,06/08/2016,2014,06/02/2014 INFLUENZA VACCINE, ADJUVANTE D, QUADR. (FLUAD QUADRIVALENT; 65Y+) (AIIV4) 05/13/2022 INFLUENZA VACCINE, HIGH-DOSE , QUADR. (FLUZONE HIGH-DOSE QUADRIVALENT; 65Y+), 0.7 ML (HD-IIV4) 05/17/2023,05/14/2021,05/16/2019,2016 INFLUENZA VACCINE, HIGH-DOSE , TRIV. (FLUZONE HIGH-DOSE TRIVALENT; 65Y+) (HD-IIV3) 05/15/2024 INFLUENZA VACCINE, QUADR. (F LUZONE; FLULAVAL; FLUARIX; AFLURIA QUADRIVALENT; 6MO+), 0.5 ML (IIV4) 05/21/2020 PNEUMOCOCCAL PPSV23 07/07/2017,08/08/2010,2008 Pneumococcal Pcv13 Conj 06/19/2015 RSV AREXVY 60YR+ 0.5ML 05/15/2024 TD (AGE 7-ADULT) 07/28/2009,11/06/2001 TDAP (7yrs+) 2020,08/08/2010 ZOSTER VACCINE, LIVE 02/05/2014 Zoster Hzv Vacc Recombinant Inj Im 03/09/2018, Family History Medical History Relation Name Comments Cancer - Breast Neg Hx Social History Tobacco Use Types Packs/Day Years Used Date Smoking Tobacco: Former Cigarettes Q uit: 08/08/1963 Passive Smoke Exposure: Past Smokeless Tobacco: Never Tobacco Cessation:Counseling Given: Not Answered Alcohol Use Standard Drinks/Week Comments No 0 [...] Answer Date Recorded Patient Health Questionnaire-2 Score 1 08/22/2024 Comments No Sex and Gender Information Value Date Recorded Sex Assigned at Not on file Legal Sex Female 6:29 AM TENTMAKER Gender Identity Not on file Sexual Orientation Not on file Last Filed Vital Signs Vital Sign Reading Time Taken Comments Blood Pressure 114/74 08/22/2024 11:07 AM TENTMAKER Pulse 69 08/22/2024 11:07 AM TENTMAKER Temperature 36.4 C (97.6 F) 03/07/2024 11:31 AM CDT Respiratory Rate 16 03/07/2024 11:31 AM CDT Oxygen Saturation 98% 08/22/2024 11:07 AM TENTMAKER Inhaled Oxygen Concentration - - Weight 71.8 kg (158 lb 6.4 oz) 08/22/2024 11:07 AM TENTMAKER Height 163.8 cm (5' 4.5) 08/22/2024 11:07 AM CS T Body Mass Index 26.77 08/22/2024 11:07 AM TENTMAKER Plan of Treatment Upcoming Encounters Date Type Department Care Team (Late st Contact Info) Description 04/02/2025 1:20 PM CDT Office Visit [facility] - Internal Medicine [address] [address] Regino Husain MD [address] [place] [phone] Health Maintenance Due Date Last Done Comments MEDICARE AWV CALENDAR YEAR 2024 05/27/2023, 05/21/2020 DIABETES RETINOPATHY SCREENING 09/12/2024 DIABETES-FOOT EXAM WITH MONOFILAMENT 09/12/2024 COVID-19 VACCINE ( season) 2024 05/15/2024, 05/27/2023, 05/13/2022, Additional history exists DIABETES-HGB A1C 03/11/2025 09/11/2024, , 11/23/2022, Additional history exists DTAP/TDAP/TD VACCINES (5 - Td or Tdap) 2030 2020, 08/08/2010, 07/28/2009, Additional history exists BONE DENSITY TESTING Completed 01/01/2016, 12/15/2011, 12/15/2011 (Previously completed), Additional history exists PNEUMOCOCCAL VACCINE 50+ Completed 017, 06/19/2015, 08/08/2010, Additional history exists ZOSTER VACCINE Completed 03/09/2018, 10/2017, 02/05/2014 INFLUENZA VACCINE Completed 05/15/2024, , 05/13/2022, Additional history exists Respiratory Syncytial Virus (RSV) Vaccine Pt: or over 60 yrs Completed 05/15/2024 DEPRESSION SCREENING Completed 08/22/2024, 11/30/2023, 12/08/2022, Additional history exists HEPATITIS B VACCINE Aged Out No longe r eligible based on patient's age to complete this topic HIB VACCINE Aged Out No longer eligi ble based on patient's age to complete this topic HPV VACCINE Aged Out No longer eligi ble based on patient's age to complete this topic MENINGOCOCCAL (Group B) VACCINE SHARED DECISION-MAKING Aged Out No longer eligible based on patient's age to complete this topic MENINGOCOCCAL GROUPS A/C/Y/W VACCINE Aged Out No longer eligible based on patient's age to complete this topic Goals Goal Patient Goal Type Associated Problems Recent Progress Patient-Stated? Author Blood Pressure < 140/90 Blood Pressure 114/74(2024 11:07 AM TENTMAKER) Linda Downing LDL JADE < 130 Result Component 70(09/11/2024 10:00 AM TENTMAKER) Linda Downing Procedures Procedure Name Priority Date/Time Associated Diagnosis Comments HEMOGLOBIN A1C Routine 09/11/2024 10:00 AM TENTMAKER Hyperglycemia DEXA BONE DENSITY 2 SITES Routine 01/01/2016 2:12 PM CDT Osteoporosis screening from Last 3 Months or Most Recently Relevant to Health Maintenance Results * (ABNORMAL) HEMOGLOBIN A1C (09/11/2024 10:00 AM TENTMAKER) Hemoglobin A1c 7.3(H) <5.7 % of total Hgb [facility] Comment: For someone without known diabetes, a hemoglobin A1c value of 6.5% or greater indicates that they may have diabetes and this should be confirmed with a follow-up test. For someone with known diabetes, a value <7% indicates that their diabetes is well controlled and a value greater than or equal to 7% indicates suboptimal control. A1c targets should be individualized based on duration of diabetes, age, comorbid conditions, and other considerations. Currently, no consensus exists regarding use of hemoglobin A1c for diagnosis of diabetes for children. REPORT COMMENT: FASTING:YES Test Performed at: [email or web address] [id number] LAURY COE MD Blood BLOOD SPECIMEN / Unknown 09/11/2024 10:00 AM TENTMAKER 09/11/2024 10:01 AM TENTMAKER Regino Husain MD LAB - CHEMISTRY ORDERABLES F inal Result [address] [address] * DEXA BONE DENSITY 2 SITES (01/01/2016 2:12 PM CDT) Anatomical Region Laterality Modality Mammography 01/01/2016 4:07 PM CDT Narrative 01/01/2016 4:17 PM CDT Bone density study (DEXA): HISTORY: Postmenopausal woman. EXAM LOCATION: [facility] COMPARISON: No available comparison LUMBAR SPINE (L1-L4): Bone mineral density (g/cm2): 0.8 Current T-score: -2.4 Current Z-score: -0.7 WHO Category: Osteopenia. LEFT FEMORAL NECK: Bone mineral density (g/cm2): 0.7 Current T-score: -1.9 Current Z-score: 0.1 WHO Category: Osteopenia. Please see the PACS images for additional details. World Health Organization definitions of standard deviations relative to the mean T-score: Normal bone density = -1.0 and above Mild osteopenia = -1.0 to -1.5 Moderate osteopenia = -1.5 to -2.0 Severe osteopenia = -2.0 to -2.5 Osteoporosis = -2.5 and below [facility]: [employer] [facility]: [employer] [facility] [address]: [employer] [facility]: [employer] [place] C Procedure Note Ines Sampson MD - 01/01/2016 Bone density study (DEXA): HISTORY: Postmenopausal woman. EXAM LOCATION: [facility] COMPARISON: No available comparison LUMBAR SPINE (L1-L4): Bone mineral density (g/cm2): 0.8 Current T-score: -2.4 Current Z-score: -0.7 WHO Category: Osteopenia. LEFT FEMORAL NECK: Bone mineral density (g/cm2): 0.7 Current T-score: -1.9 Current Z-score: 0.1 WHO Category: Osteopenia. Please see the PACS images for additional details. World Health Organization definitions of standard deviations relative to the mean T-score: Normal bone density = -1.0 and above Mild osteopenia = -1.0 to -1.5 Moderate osteopenia = -1.5 to -2.0 Severe osteopenia = -2.0 to -2.5 Osteoporosis = -2.5 and below [facility]: [employer] [facility]: [employer] [facility] [address]: [employer] [facility]: [facility] [place] [facility] us Regino Husain MD DEXA ORDERABLES Final Result from Last 3 Months or Most Recently Relevant to Health Maintenance Insurance [employer] MEDICARE ADV A[employer] Care Teams Coremaking Machine Setter Relationship Specialty Start Date End Date Regino Husain MD [address] [facility] [address] [place] [phone] PCP - General Internal Medicine 12/11/13 Moe Gibson MD [address] [phone] PCP - Attributed-[place] 10/06/22 Delroy Conrad MD [address] [address] Distribution Engineering Technologist Cardiology 11/30/23 Basil Mondragon MD [address] [facility] [place] [address] Surgery 08/22/24
--- OUTSIDE RECORDS SUMMARY | 2025-01-03 09:46 | XMS_ITS | Encounter Summary ---
Author Organization [facility] Address [address] [place] [address] Care Team Providers Care Director Food Safety Name Role Phone Regino Husain MD Primary Care Provider Regino Husain MD Unavailable [phone] Cruz Davis MD Unavailable Moe Gibson MD Unavailable [phone] Delroy Conrad MD Unavailable [phone] Basil Mondragon MD Unavailable [phone] Brooke Nath MA Unavailable [phone] Basil Mondragon MD Unavailable [phone] Regino Husain MD Unavailable [phone] Encounter Details Date Type Department Care Team (Late Contact Info) Description 09/22/2015 [facility] [address] [place] [address] Document, Scanned Social History Tobacco Use Types Packs/Day Years Used Date Smoking Tobacco: Former Cigarettes Q uit: 08/08/1963 Smokeless Tobacco: Never Alcohol Use Standard Drinks/Week Comments No 0 (1 standard drink = 0.6 oz pur e alcohol) Comments No Sex and Gender Information Value Date Recorded Sex Assigned at Not on file Legal Sex Female 6:29 AM NURSE SPECIAL Gender Identity Not on file Sexual Orientation Not on file documented as of this encounter Plan of Treatment Upcoming Encounters Date Type Department Care Team (Late Contact Info) Description 04/02/2025 1:20 PM CDT Office Visit [facility] - Internal Medicine [address] [phone] Regino Husain MD [address] [place] [address] [address] [place] [address] documented as of this encounter Goals Goal Patient Goal Type Associated Problems Recent Progress Patient-Stated? Author Blood Pressure < 140/90 Blood Pressure 114/74(2024 11:07 AM NURSE SPECIAL) No Linda Ferreira LDL JADE < 130 Result Component 70(09/11/2024 10:00 AM NURSE SPECIAL) No Linda Ferreira documented as of this encounter Visit Diagnoses Not on filedocumented in this encounter Care Teams Director Food Safety Relationship Specialty Start Date End Date Regino Husain MD [address] [place] [phone] PCP - General Internal Medicine 12/11/13 Regino Husain MD [address] [place] [phone] PCP - Attributed-[place] 08/08/19 10/05/22 Moe Gibson MD [address] [phone] PCP - Attributed-[place] 10/06/22 Regino Husain MD [address] [place] [address] [address] [place] [address] PCP - Attributed-[place] 12/07/16 01/05/19 Cruz Davis MD [address] [place] [address] Urology 11/05/21 11/29/23 Delroy Conrad MD [address] [address] Valve Lapper Cardiology 11/30/23 Basil Mondragon MD [address] [facility] [address] [place] [place] [id number] Surgery 11/30/23 08/21/24 Brooke Nath MA Care Coordination Specialist 04/30/24 05/01/24 Basil Mondragon MD [address] [facility] [address] [place] [place] [phone] Surgery 08/22/24 documented as of this encounter
--- OUTSIDE RECORDS SUMMARY | 2025-01-03 09:46 | XMS_ITS | Clinical Summary ---
Author Organization [facility] Address [address] [facility], [place] [address] Phone Care Team Providers Care Women Nurse Name Role Phone Regino Husain MD Primary Care Provider Allergies Active Allergy Reactions Criticality Noted Date Comments Sulfa Antibiotics Diarrhea,Vomiting Low 05/08/2020 Reaction: vomiting, diarrhea, Medications Multiple Vitamins-Mineral s (HAIR SKIN NAILS PO) Take 2 Tabs by mouth. Active Multiple Vitamins-Mineral s (ONE-A-DAY WOMENS 50+ ADVANTAGE PO) Take 2 Tabs by mouth. Active Multiple Vitamins-Mineral s (PRESERVISION AREDS PO) Take 1 Tab by mouth. Active amLODIPine (NORVASC) 5 MG Tablet Take 5 mg by mouth. 04/24/2020 Active levothyroxine (SYNTHROID) 50 MCG Tablet Take 50 mcg by mouth. 05/26/2017 Active losartan (COZAAR) 100 MG Tablet Take 100 mg by mouth. 01/17/2020 Active meloxicam (MOBIC) 15 MG Tablet Take 15 mg by mouth. 06/15/2017 Active metoprolol Succinate (TOPROL-XL) 50 MG TABLET SR 24 HR Take 50 mg by mouth. 05/26/2017 Active simvastatin (ZOCOR) 20 MG Tablet Take 20 mg by mouth. 03/31/2017 Active benazepril (LOTENSIN) 40 MG Tablet Take 40 mg by mouth. 10/14/2016 Active Family History Medical History Relation Name Comments Diabetes Sister 1 Psoriasis Sister 1 Relation Name Status Comments Father Mother Sister 1 Sister 2 Social History Tobacco Use Types Packs/Day Years Used Date Smoking Tobacco: Former Smokeless Tobacco: Never Alcohol Use Standard Drinks/Week Comments Not Currently 0 (1 standard drink = 0.6 oz pur e alcohol) Sexually Active Control Partners Comments Not Currently Comments Unknown Sex and Gender Information Value Date Recorded Sex Assigned at Not on file Legal Sex Female 8:01 PM CDT Gender Identity Not on file Sexual Orientation Not on file Last Filed Vital Signs Vital Sign Reading Time Taken Comments Blood Pressure 156/76 05/08/2020 1:15 PM CDT Pulse 89 05/08/2020 1:15 PM CDT Temperature 36.3 C (97.3 F) 05/08/2020 1:15 PM CDT Respiratory Rate 16 05/08/2020 1:15 PM CDT Oxygen Saturation 97% 05/08/2020 1:15 PM CDT Inhaled Oxygen Concentration - - Weight 69.9 kg (154 lb) 05/08/2020 1:15 PM CDT Height - - Body Mass Index - - Plan of Treatment Health Maintenance Due Date Last Done Comments Hepatitis C Virus (HCV) Screening 1935 TdaP Immunization 1935 Pneumococcal Immunization (50+ years) (1 of 1 - PCV) 1986 Respiratory Syncytial Virus (RSV) Immunization (Adult) (1 - 1-dose 75+ series) 2011 Influenza Immunization (#1) 04/08/202404/2019, 05/07/2018, 05/14/2017, Additional history exists SARS-COV-2 Immunization ( season) 2024 05/14/2021, 09/24/2020, 09/03/2020 Zoster Immunization Completed 03/09/2018, 12/07/2017, 02/05/2014, Additional history exists Hepatitis B Immunization Aged Out No longer eligible based on patient's age to complete this topic Meningococcal Immunization (ACWY) Aged Out No longer eligible based on patient's age to complete this topic Rotavirus Immunization Aged Out No lo nger eligible based on patient's age to complete this topic Care Teams Women Nurse Relationship Specialty Start Date End Date Regino Husain MD [address] [address] PCP - General Internal Medicine 04/29/20
--- OUTSIDE RECORDS SUMMARY | 2025-01-03 09:46 | XMS_ITS | Encounter Summary ---
Author Organization [facility] Address [address] [place] [address] Care Team Providers Care Education Administrative Assistant Name Role Phone Regino Husain MD Primary Care Provider [phone] Regino Husain MD Unavailable [phone] Cruz Davis MD Unavailable Moe Gibson MD Unavailable [phone] Delroy Conrad MD Unavailable [phone] Basil Mondragon MD Unavailable [phone] Brooke Nath MA Unavailable [phone] Basil Mondragon MD Unavailable [phone] Encounter Details Date Type Department Care Team (Late st Contact Info) Description 03/10/2022 Lab Requisition [facility] [address] [facility] [place] [phone] Ignacio Wyman MD [address] [place] [address] Social History Tobacco Use Types Packs/Day Years Used Date Smoking Tobacco: Former Cigarettes Q uit: 08/08/1963 Smokeless Tobacco: Never Alcohol Use Standard Drinks/Week Comments No 0 (1 standard drink = 0.6 oz pur e alcohol) PHQ-2 Answer Date Recorded PHQ2 TOTAL SCORE 0 11/05/2021 Comments No Sex and Gender Information Value Date Recorded Sex Assigned at Not on file Legal Sex Female 6:29 AM OCCUPATIONAL THERAPIST ASSISTANTS Gender Identity Not on file Sexual Orientation [...] Description 04/02/2025 1:20 PM CDT Office Visit [facility] - Internal Medicine [address] [place] [address] Regino Husain MD [address] [place] [phone] documented as of this encounter Goals Goal Patient Goal Type Associated Problems Recent Progress Patient-Stated? Author Blood Pressure < 140/90 Blood Pressure 114/74(2024 11:07 AM OCCUPATIONAL THERAPIST ASSISTANTS) No Linda Ferreira LDL JADE < 130 Result Component 70(09/11/2024 10:00 AM OCCUPATIONAL THERAPIST ASSISTANTS) No Linda Ferreira documented as of this encounter Procedures Procedure Name Priority Date/Time Associated Diagnosis Comments DERMATOPATHOLOGY Routine 03/09/2022 3:33 AM CDT documented in this encounter Results * DERMATOPATHOLOGY (03/09/2022 3:33 AM CDT) Case Report Dermatopathology Report Case: [id number] Authorizing Provider: Ignacio Wyman MD Collected: 03/09/2022 03:33 AM Ordering Location: [facility] Received: 03/10/2022 02:12 PM Pathologist: Charlotte Santo MD Specimens: A) - Skin, right lateral arm above elbow superiorly B) - Skin, right lateral arm aove elbow inferiorly C) - Skin, left lower pretibial right of midline D) - Skin, left lower pretibial left of midline 2 9:19 AM T DERMATOPATHOLOGY LABORATORY Addendum 1 Regarding Specimen A (SKIN, right lateral arm above elbow superiorly), this lesion approximates the margin of the specimen. 2 9:19 AM T DERMATOPATHOLOGY LABORATORY Addendum electronically signed by Charlotte Santo MD on 03/18/2022 at 0919 CDT Final Diagnosis Specimen A. 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 SKIN, right lateral arm aove elbow inferiorly: ACTINIC KERATOSIS, FOCAL (L57.0) DERMAL SCAR (L90.5) (see microscopic description) Specimen C. SKIN, left lower pretibial right of midline: ACTINIC KERATOSIS (L57.0) STASIS DERMATITIS (L30.8) Specimen D. SKIN, left lower pretibial left of midline: ACTINIC KERATOSIS (L57.0) STASIS DERMATITIS (L30.8) 2 9:19 AM T DERMATOPATHOLOGY LABORATORY at 1407 CDT Clinical History A-D: R/O ISK, SCC, BCC 2 9:19 AM CDT DERMATOPATHOLOGY LABORATORY Gross Description Specimen A: Received is one formalin filled container labeled with the patient's name and designated right lateral arm above elbow superiorly. The specimen consists of a shave biopsy measuring [id number]. Jar 0. Specimen B: Received is one formalin filled container labeled with the patient's name and designated right lateral arm aove elbow inferiorly. The specimen consists of a shave biopsy measuring [id number]. Jar 0. Specimen C: Received is one formalin filled container labeled with the patient's name and designated left lower pretibial right of midline. The specimen consists of a shave biopsy measuring [id number]. Jar 0. Specimen D: Received is one formalin filled container labeled with the patient's name and designated left lower pretibial left of midline. The specimen consists of a shave biopsy measuring [id number]. Jar 0. 2 9:19 AM [facility] DERMATOPATHOLOGY LABORATORY Microscopic Description Specimen A. SKIN, right lateral arm above elbow superiorly: The epidermis shows parakeratosis, full thickness disorderly maturation of keratinocytes, mitoses at different levels, and dyskeratotic cells. Specimen B. SKIN, right lateral arm aove elbow inferiorly: There is focal parakeratosis. Focally, the lower half of the epidermis shows disorderly maturation of keratinocytes with nuclear pleomorphism. There are fibroblasts and collagen bundles oriented parallel to the skin surface with elongated blood vessels, some of which are oriented perpendicular to the skin surface. Specimen C. SKIN, left lower pretibial right of midline: There is focal parakeratosis. The lower half of the epidermis shows disorderly maturation of keratinocytes with nuclear pleomorphism. There is focal spongiosis. The dermis shows a sparse, perivascular lymphocytic infiltrate surrounding dilated, thick-walled vessels, which are increased in number. Specimen D. SKIN, left lower pretibial left of midline: There is focal parakeratosis. The lower half of the epidermis shows disorderly maturation of keratinocytes with nuclear pleomorphism. There is focal spongiosis. The dermis shows a sparse, perivascular lymphocytic infiltrate surrounding dilated, thick-walled vessels, which are increased in number. 2 9:19 AM [facility] DERMATOPATHOLOGY LABORATORY Disclaimer An external and internal positive and negative controls are appropriate for the histochemical, immunohistochemical and immunofluorescence stain(s) in this case (if any), except where stated explicitly. The performance characteristics of the stain(s) cited in this report were developed and its performance characteristic determined by the Dermatopathology Laboratory at [facility], directed by Dr. Alphonso Gee. These tests need not be, and therefore are not, approved by the [place] Food and Drug Administration. The tests are used for clinical purposes. Billing Codes Specimen Charges Stain Charges 69755 58070 [id number] 42239 1 1 1 1 2 9:19 AM [facility] DERMATOPATHOLOGY LABORATORY Embedded Images 2 9:19 AM CDT DERMATOPATHOLOGY LABORATORY Pathology/Cytology TISSUE SPECIMEN FROM SKIN / Unknown 03/09/2022 3:33 AM CDT 03/10/2022 2:12 PM CDT Miscellaneous samples (specimen) TISSUE SPECIMEN FROM SKIN / Unknown 03/09/2022 3:33 AM CDT 03/10/2022 2:12 PM CDT Miscellaneous samples (specimen) TISSUE SPECIMEN FROM SKIN / Unknown 03/09/2022 3:33 AM CDT 03/10/2022 2:12 PM CDT Miscellaneous samples (specimen) TISSUE SPECIMEN FROM SKIN / Unknown 03/09/2022 3:33 AM CDT 03/10/2022 2:12 PM CDT Ignacio Wyman MD LAB - PATHOLOGY/CYTOLOGY ORD ERABLES Edited Result - Final DERMATOPATHOLOGY LABORATORY [facility] - Department of Dermatology [facility] Specialized Medicine [address] [place] [address], [address] [phone] documented in this encounter Visit Diagnoses Not on filedocumented in this encounter Care Teams Education Administrative Assistant Relationship Specialty Start Date End Date Regino Husain MD [address] [facility] [address] [place] [address] PCP - General Internal Medicine 12/11/13 Regino Husain MD [address] [facility] [address] [place] [address] PCP - Attributed-[place] 08/08/19 10/05/22 Moe Gibson MD [address] [phone] PCP - Attributed-[place] 10/06/22 Cruz Davis MD [address] [place] [address] Urology 11/05/21 11/29/23 Delroy Conrad MD [address] [address] Rn Home Care Cardiology 11/30/23 Basil Mondragon MD [address] [facility] [place] [address] Surgery 11/30/23 08/21/24 Brooke Nath MA Care Coordination Specialist 04/30/24 05/01/24 Basil Mondragon MD [address] [facility] [place] [phone] Surgery 08/22/24 documented as of this encounter
--- OUTSIDE RECORDS SUMMARY | 2025-01-03 09:46 | XMS_ITS | Encounter Summary ---
Author Organization [facility] Address [address] [place] [address] Care Team Providers Care Clinical Cytogeneticist Name Role Phone Regino Husain MD Primary Care Provider [phone] Regino Husain MD Unavailable [phone] Cruz Davis MD Unavailable Moe Gibson MD Unavailable [phone] Delroy Conrad MD Unavailable [phone] Basil Mondragon MD Unavailable [phone] Brooke Nath MA Unavailable [phone] Basil Mondragon MD Unavailable [phone] Regino Husain MD Unavailable [phone] Encounter Details Date Type Department Care Team (Late Contact Info) Description 10/29/2015 [facility] [address] [place] [address] Document, Scanned Social History Tobacco Use Types Packs/Day Years Used Date Smoking Tobacco: Former Cigarettes Q uit: 08/08/1963 Smokeless Tobacco: Never Alcohol Use Standard Drinks/Week Comments No 0 (1 standard drink = 0.6 oz pur e alcohol) Comments No Sex and Gender Information Value Date Recorded Sex Assigned at Not on file Legal Sex Female 6:29 AM DIGITAL CARTOGRAPHIC TECHNICIAN Gender Identity Not on file Sexual Orientation Not on file documented as of this encounter Plan of Treatment Upcoming Encounters Date Type Department Care Team (Late Contact Info) Description 04/02/2025 1:20 PM CDT Office Visit [facility] - Internal Medicine [address] [phone] Regino Husain MD [address] [place] [address] [address] [place] [address] documented as of this encounter Goals Goal Patient Goal Type Associated Problems Recent Progress Patient-Stated? Author Blood Pressure < 140/90 Blood Pressure 114/74(2024 11:07 AM DIGITAL CARTOGRAPHIC TECHNICIAN) No Linda Ferreira LDL JADE < 130 Result Component 70(09/11/2024 10:00 AM DIGITAL CARTOGRAPHIC TECHNICIAN) No Linda Ferreira documented as of this encounter Visit Diagnoses Not on filedocumented in this encounter Care Teams Clinical Cytogeneticist Relationship Specialty Start Date End Date Regino Husain MD [address] [place] [phone] PCP - General Internal Medicine 12/11/13 Regino Husain MD [address] [place] [phone] PCP - Attributed-[facility] [place] 08/08/19 10/05/22 Moe Gibson MD [address] [phone] PCP - Attributed-[place] 10/06/22 Regino Husain MD [address] [place] [address] [address] [place] [address] PCP - Attributed-[place] 12/07/16 01/05/19 Cruz Davis MD [address] [place] [address] Urology 11/05/21 11/29/23 Delroy Conrad MD [address] [address] [employer] Cardiology 11/30/23 Basil Mondragon MD [address] [facility] [address] [place] [address] [place] [address] Surgery 11/30/23 08/21/24 Brooke Nath MA Care Coordination Specialist 04/30/24 05/01/24 Basil Mondragon MD [address] [facility] [address] [place] [address] [place] [phone] Surgery 08/22/24 documented as of this encounter
--- OUTSIDE RECORDS SUMMARY | 2025-01-03 09:46 | XMS_ITS | Encounter Summary ---
Author Organization [facility] Address [address] [place] [address] Care Team Providers Care Stove Installer Name Role Phone Regino Husain MD Primary Care Provider [phone] Cruz Davis MD Unavailable Moe Gibson MD Unavailable [phone] Delroy Conrad MD Unavailable [phone] Basil Mondragon MD Unavailable [phone] Brooke Nath MA Unavailable Basil Mondragon MD Unavailable [phone] Reason for Visit * Reason Onset Date Comments Medication Issue 10/25/2023 Encounter Details Date Type Department Care Team (Late st Contact Info) Description 10/25/2023 Telephone [facility] - Internal Medicine [facility] [address] Regino Husain MD [address] [place] [phone] Medication Issue Social History Tobacco Use Types Packs/Day Years Used Date Smoking Tobacco: Former Cigarettes Q uit: 08/08/1963 Passive Smoke Exposure: Past Smokeless Tobacco: Never Alcohol Use Standard Drinks/Week Comments No 0 (1 standard drink = 0.6 oz pur e alcohol) PHQ-2 Answer Date Recorded PHQ2 TOTAL SCORE 0 03/07/2023 Comments No Sex and Gender Information Value Date Recorded Sex Assigned at Not on file Legal Sex Female 6:29 AM COLLECTIONS TECHNICIAN Gender Identity Not on file Sexual [...] Richards RN documented as of this encounter Miscellaneous Notes * Telephone Encounter - Julia Chadwick - 10/25/2023 8:45 AM CDT Pended if ok * Telephone Encounter - Holli Rosales - 10/25/2023 8:25 AM CDT .Who is calling? spouse If other than self is caller listed on the HIPAA? yes What is the reason for call? (Trazodone 50 mg) pt takes 2 sometimes to sleep at night per pcp orders. She is in need of a refill and the pharmacy will not refill due to being too soon because she hastaken 2 at times. Please call pt back. Expected Response from the Clinic? ( ex. Call back, etc..) Did you notify caller it would take 24-48 hours for the office to get back to them? YES documented in this encounter Plan of Treatment Upcoming Encounters Date Type Department Care Team (Late st Contact Info) Description 04/02/2025 1:20 PM CDT Office Visit [facility] - Internal Medicine [address] [phone] Regino Husain MD [address] [place] [address] [address] [place] [address] documented as of this encounter Goals Goal Patient Goal Type Associated Problems Recent Progress Patient-Stated? Author Blood Pressure < 140/90 Blood Pressure 114/74(2024 11:07 AM COLLECTIONS TECHNICIAN) No Linda Ferreira LDL JADE < 130 Result Component 70(09/11/2024 10:00 AM COLLECTIONS TECHNICIAN) No Linda Ferreira documented as of this encounter Visit Diagnoses Not on filedocumented in this encounter Care Teams Stove Installer Relationship Specialty Start Date End Date Regino Husain MD [address] [place] [phone] PCP - General Internal Medicine 12/11/13 Moe Gibson MD [address] [phone] PCP - [facility] 10/06/22 Cruz Davis MD [address] [phone] Urology 11/05/21 11/29/23 Delroy Conrad MD [address] [phone] Rack Cleaner Cardiology 11/30/23 Basil Mondragon MD [address] [address] Surgery 11/30/23 08/21/24 Brooke Nath MA Care Coordination Specialist 04/30/24 05/01/24 Basil Mondragon MD [address] [place] [phone] Surgery 08/22/24 documented as of this encounter
--- NOTE | 2025-01-03 10:30 | ED_ITS ---
HPI - Fall General Chief Complaint: Fall Stated Complaint: fall-back pain Time Seen by Provider: 01/03/25 09:54 Source: patient and family Mode of arrival: wheelchair Limitations: other (history of CVA, poor historian) History of Present Illness HPI Narrative: This is a 89 year old female that presents to the ER for a fall 3 nights ago. reports she woke up in the middle of the night to use the restroom. He heard her fall as she was walking back to bed. She fell into a dresser. Contusion to the right flank noted. Patient takes Clopidogrel for history of CVA. She has had worsening back pain, today she was not able to get up due to pain. Related Data Home Medications ?Medication ?Instructions ?Recorded ?Confirmed ?Last Taken ?Type amlodipine 5 mg tablet 5 mg PO BID 06/08/19 01/03/25 01/03/25 History levothyroxine 50 mcg tablet 50 mcg PO QAM 06/08/19 01/03/25 01/03/25 History losartan 100 mg tablet 100 mg PO QAM 06/08/19 01/03/25 01/03/25 History aspirin 81 mg tablet,delayed 81 mg PO DAILY 06/09/21 01/03/25 01/03/25 History release atorvastatin 80 mg tablet 80 mg PO DAILY 10/16/22 01/03/25 01/03/25 History carvedilol 3.125 mg tablet 3.125 mg PO BID 10/16/22 01/03/25 01/03/25 History clonidine HCl 0.2 mg tablet 0.2 mg PO BID 10/16/22 01/03/25 01/03/25 History hydralazine 50 mg tablet 50 mg PO TID 10/16/22 01/03/25 01/03/25 History amitriptyline 25 mg tablet 25 mg PO HS 12/04/23 01/03/25 01/02/25 History Allergies Allergy/AdvReac Type Severity Reaction Status Date / Time Sulfa (Sulfonamide Allergy Unknown Vomiting, Verified 01/03/25 14:41 Antibiotics) DIARRHEA Review of Systems 2 Review of Systems: ROS unobtainable: Yes unobtainable due to medical condition PMFSH Past Medical History Medical History Psoriasis Vitreous hemorrhage, left eye 2016 Gastric ulcer June 2018 TIA (transient ischemic attack) 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, with right homonymous hemianopsia Skin cancer Kidney stones Carotid stenosis, bilateral carotid enterectomy, left, 2022 Hypothyroid GERD (gastroesophageal reflux disease) Hyperlipidemia Hypertension Surgical History Surgical History History of tonsillectomy History of partial thyroidectomy Status post cataract extraction of both eyes with insertion of intraocular lens History of extraction of renal calculus S/P bladder repair H/O shoulder surgery Right rotator cuff H/O: hysterectomy H/O colonoscopy Family History Family History Sibling Hypertension Family history of diabetes mellitus in first degree relative Family history of coronary artery disease Mother Family history of congenital heart disease, Onset Age: 84 Patient's mother is Social History Social History Social History: She is . She has 2 biological children and 4 step children. She has 2 dogs and 1 cat. She retired from [employer]. She has worked and many retail sales. She smoked 1 pack of cigarettes per day for 10 years but quit when she was in her early 30s. She does not use any alcohol, marijuana or illicit drugs. Code status: DNR/DNI (the patient states that she has lived a good life and her age would not want cardiac resuscitation to be placed on a ventilator) Surrogate decision maker: Anson () Smoking packs per day: 1 Smoking cigarettes per day: 20.0 Years smoked: 10 Smoking pack-years: 10.00 Smoking status: Former smoker Second hand tobacco smoke exposure: No Additional smoking assessment comments: 1 PACK/WEEK X 10 YRS Alcohol intake: never Substance use: never Substance use type: does not use Do You Feel Safe in your Home?: Yes Lack of Transportation: No Lack of Food: Never True Current Housing: I Have Housing Concerned About Future Housing: No Difficulty Paying Gas/Electric Bills: No Difficulty Paying for Meds: No Currently Unemployed: No Education: Don't Know Difficulty w/ Childcare or Family Care: No Living arrangements: with family Additional living arrangements comments: HUSB Gender identity (if verbalized by the patient): Female Sexual Orientation (if Verbalized by the Patient): Straight or Heterosexual Spiritual care concerns: No Agree to blood products: Yes Exam 2 Narrative: GENERAL: Elderly, well-nourished, and in no acute distress. HEAD: Normocephalic, atraumatic. EYES: PERRLA and EOMI. ENT: Nares clear, no rhinorrhea or epistaxis. Mucous membranes moist. Oropharynx without tonsillar hypertrophy exudate or other lesions. Bilateral TMs pearly fung non-bulging NECK: Supple. No adenopathy or masses. CHEST: Clear to auscultation. No respiratory distress. No wheezes rales or rhonchi HEART: Regular rate and rhythm. No murmur heard. Normal peripheral pulses. ABDOMEN: Soft, nontender, nondistended, normal active bowel sounds. Contusion over the right flank area EXTREMITIES: Normal range of motion. No edema or obvious deformity. SKIN: Warm, dry, no rash. NEURO: No focal deficits. Alert and oriented x2. CN II-XII grossly intact PSYCH: Normal mood and affect Course Course Emergency Course: Patient and family updated on workup and recommendation for admission Consultations Consultation #1: Spoke with hospitalist about patient and workup who accepts admission Date: 01/03/25 Vital Signs Vital signs: Vital Signs Temperature 98 F 01/03/25 09:50 Pulse Rate 69 01/03/25 09:50 Respiratory Rate 22 H 01/03/25 09:50 Blood Pressure 172/59 H 01/03/25 09:50 Pulse Oximetry 100 01/03/25 09:50 Oxygen Delivery Room Air 01/03/25 09:50 Temperature 97.4 F L 01/04/25 12:00 Pulse Rate 54 L 01/04/25 12:00 Respiratory Rate 16 01/04/25 12:00 Blood Pressure 134/58 L 01/04/25 12:00 Pulse Oximetry 97 01/04/25 12:00 Oxygen Delivery Room Air 01/04/25 09:30 MDM - Fall MDM Narrative Medical decision making narrative: Patient presents to the emergency department after an unwitnessed ground level fall 3 nights ago. Reporting flank pain, rib pain, patient takes clopidogrel. She is afebrile and nontoxic appearing. Her vitals are stable. CBC metabolic panel without concerning findings. Magnesium is low, this was replaced. CT brain and cervical spine without acute findings. CT chest/abdomen/pelvis obtained for further evaluation. This shows mildly displaced right 10th and 11th rib fractures. Shows bladder distension. Purewick was placed. Patient may need a Teixeira on admission. Urine without evidence of infection. Patient and family updated on workup and recommendation for admission for further pain control, PT/OT evaluation. Spoke with hospitalist about patient and workup who accepts admission Differential Diagnosis Differential diagnosis: Likely syncope, compression fracture, concussion without loss of consciousness and other (Rib fracture, intrathoracic trauma, intra- abdominal trauma, urinary retention, electrolyte derangement) Lab Data Attestation: I reviewed the patient's lab results. 01/03/25 10:37 01/04/25 04:53 Labs: Lab Results 01/03/25 01/03/25 01/03/25 Range/Units 10:36 10:37 12:04 WBC 9.2 (4.5-10.0) K/mm3 RBC 4.30 (4.2-5.4) M/mm3 Hgb 13.3 (12.0-15.0) g/dL Hct 38.3 (37.0-47.0) % MCV 89.1 (80-100) fl MCH 30.9 (26-34) pg MCHC 34.7 (32-36) g/dl RDW 13.2 (11.5-14.5) % Plt Count 223 (150-375) k/mm3 MPV 10.4 (7.4-10.4) fl Immature Gran % (Auto) 0.3 (0-0.5) % Neut % (Auto) 61.7 (45.5-73.1) % Lymph % (Auto) 25.1 (18.3-44.2) % Crowley % (Auto) 10.4 H (2.6-8.5) % Eos % (Auto) 1.7 (0-4.4) % Baso % (Auto) 0.8 (0.2-1.2) % Lymph # (Auto) 2.31 (0.9-3.2) K/mm3 Crowley # (Auto) 1.0 H (0.1-0.6) K/mm3 Eos # (Auto) 0.2 (0-0.3) K/mm3 Baso # (Auto) 0.1 (0.0-0.1) K/mm3 Abs Immat Gran (auto) 0.03 (0.00-0.031) K/mm3 Absolute Neuts (auto) 5.7 (1.3-6.7) K/mm3 Absolute Nucleated RBC 0.000 (0.0-0.012) K/mm3 Nucleated RBC % 0.0 (0.0-0.2) % PT 12.4 (11.1-14.7) Seconds INR 0.9 APTT 22.4 (22.3-36.8) Seconds Sodium 141 (137-145) mmol/L Potassium 3.2 L (3.4-5.0) mmol/L Chloride 107 (98-107) mmol/L Carbon Dioxide 23 (22-30) mmol/L Anion Gap 11 (4-12) mmol/L BUN 13 D (7-17) mg/dL Creatinine 0.91 (0.7-1.0) mg/dL Estim Creat Clear Calc 35 ml/min Estimated GFR 58 L (59 - ) Glucose 112 H (65-110) mg/dL Calcium 9.1 (8.4-10.2) mg/dL Magnesium 1.3 L (1.6-2.3) mg/dL Total Bilirubin 1.2 (0.2-1.3) mg/dL AST 23 (14-36) U/L ALT 17 (6-35) U/L Alkaline Phosphatase 55 (38-126) U/L Total Protein 7.0 (6.3-8.2) g/dL Albumin 4.3 (3.5-5.1) g/dL Urine Color Yellow (Yellow) Urine Appearance Clear (Clear) Urine pH 7.5 (5.0-9.0) Ur Specific [place] 1.009 (1.001-1.035) Urine Protein Negative (Negative) mg/dL Urine Glucose (UA) Negative (Negative) mg/dL Urine Ketones Negative (Negative) mg/dL Ur Blood (Man) Negative (Negative) Urine Nitrate Negative (Negative) Urine Bilirubin Negative (Negative) Urine Urobilinogen 0.2 (<2.0) mg/dL Leukocyte Esterase Rfl Negative (Negative) STEPHANE/UL Imaging Data Radiologist's impression: ITS Impressions Head CT 01/03/25 11:31 IMPRESSION: 1. No fracture or acute intracranial process. 2. Chronic infarct involving the left posterior cerebral artery vascular distribution additional small old lacunar infarct involving the right caudate nucleus. Chest/Abdomen/Pelvis CT 01/03/25 11:43 IMPRESSION: 1. Multiple mildly displaced fractures of the posterior right 10th and 11th ribs. 2. Very small right pleural effusion. No pneumothorax. 3. Mild bilateral hydronephrosis and proximal hydroureter without evident obstructing stone or mass with prominent distention of the bladder suggesting either bladder outlet obstruction or neurogenic bladder. 4. Multinodular goiter post prior left thyroidectomy with nodules measuring up to 1.9 cm in the right thyroid lobe. Cervical Spine CT 01/03/25 12:19 Impression: Severe degenerative disease, without acute fracture identified. Critical Care Time Critical Care Time Critical Care Time: No Discharge Plan Discharge Clinical Impression: Urinary retention, Hypomagnesemia Fracture of rib Qualifiers: Encounter type: initial encounter Rib fracture type: multiple ribs Fracture type: closed Laterality: right Qualified Code(s): S22.41XA - Multiple fractures of ribs, right side, initial encounter for closed fracture Patient Disposition: Still a Patient Condition: Stable
--- OUTSIDE RECORDS SUMMARY | 2025-01-03 10:33 | XMS_ITS | Encounter Summary ---
Author Organization [facility] Address [address] [place] [address] Care Team Providers Care Solvent Plant Operator Name Role Phone Regino Husain MD Primary Care Provider [phone] Cruz Davis MD Unavailable Moe Gibson MD Unavailable [phone] Delroy Conrad MD Unavailable [phone] Basil Mondragon MD Unavailable [phone] Brooke Nath MA Unavailable [phone] Basil Mondragon MD Unavailable [phone] Reason for Visit * Reason Onset Date Comments Medication Issue 10/25/2023 Encounter Details Date Type Department Care Team (Late st Contact Info) Description 10/25/2023 Telephone [facility] - Internal Medicine [facility] [address] Regino Husain MD [address] [place] [phone] Medication Issue Social History Tobacco Use [...] on file Legal Sex Female 6:29 AM CHASSIS WIRER Gender Identity Not on file Sexual Orientation [...] Description 04/02/2025 1:20 PM CDT Office Visit [facility] - Internal Medicine [address] [phone] Regino Husain MD [address] [place] [address] [address] [place] [address] documented as of this encounter Goals Goal Patient Goal Type Associated Problems Recent Progress Patient-Stated? Author Blood Pressure < 140/90 Blood Pressure 114/74(2024 11:07 AM CHASSIS WIRER) No Linda Ferreira LDL JADE < 130 Result Component 70(09/11/2024 10:00 AM CHASSIS WIRER) No Linda Ferreira documented as of this encounter Visit Diagnoses Not on filedocumented in this encounter Care Teams Solvent Plant Operator Relationship Specialty Start Date End Date Regino Husain MD [address] [place] [phone] PCP - General Internal Medicine 12/11/13 Moe Gibson MD [address] [phone] PCP - [facility] 10/06/22 Cruz Davis MD [address] [id number] Urology 11/05/21 11/29/23 Delroy Conrad MD [address] [address] Boat Operator Cardiology 11/30/23 Basil Mondragon MD [address] [address] Surgery 11/30/23 08/21/24 Brooke Nath MA Care Coordination Specialist 04/30/24 05/01/24 Basil Mondragon MD [address] [facility] [place] [phone] Surgery 08/22/24 documented as of this encounter
--- OUTSIDE RECORDS SUMMARY | 2025-01-03 10:33 | XMS_ITS | Encounter Summary ---
Author Organization [facility] Address [address] [place] [address] Care Team Providers Care Commercial Field Inspector Name Role Phone Regino Husain MD Primary Care Provider [phone] Regino Husain MD Unavailable [phone] Cruz Davis MD Unavailable Moe Gibson MD Unavailable [phone] Delroy Conrad MD Unavailable [phone] Basil Mondragon MD Unavailable [phone] Brooke Nath MA Unavailable [phone] Basil Mondragon MD Unavailable [phone] Encounter Details Date Type Department Care Team (Late st Contact Info) Description 03/10/2022 Lab Requisition [facility] Care D[facility] Lab [address] [facility] [place] [phone] Ignacio Wyman MD [address] [place] [address] Social History Tobacco Use Types Packs/Day Years [...] on file Legal Sex Female 6:29 AM SENIOR QA ENGINEER Gender Identity Not on file Sexual Orientation [...] Description 04/02/2025 1:20 PM CDT Office Visit [facility] - Internal Medicine [address] [place] [address] Regino Husain MD [address] [place] [phone] documented as of this encounter Goals Goal Patient Goal Type Associated Problems Recent Progress Patient-Stated? Author Blood Pressure < 140/90 Blood Pressure 114/74(2024 11:07 AM SENIOR QA ENGINEER) No Linda Ferreira LDL JADE < 130 Result Component 70(09/11/2024 10:00 AM SENIOR QA ENGINEER) No Linda Ferreira documented as of this encounter Procedures Procedure Name Priority Date/Time Associated Diagnosis Comments DERMATOPATHOLOGY Routine 03/09/2022 3:33 AM CDT documented in this encounter Results * DERMATOPATHOLOGY (03/09/2022 3:33 AM CDT) Case Report Dermatopathology Report Case: [id number] Authorizing Provider: Ignacio Wyman MD Collected: 03/09/2022 03:33 AM Ordering Location: [facility] Derm[facility] Lab Received: 03/10/2022 02:12 PM Pathologist: [...] specimen consists of a shave biopsy measuring [id number]. Jar 0. Specimen B: Received is one formalin filled container labeled with the patient's name and designated right lateral arm aove elbow inferiorly. The specimen consists of a shave biopsy measuring [id number]. Jar 0. Specimen C: Received is one formalin filled container labeled with the patient's name and designated left lower pretibial right of midline. The specimen consists of a shave biopsy measuring [id number]. Jar 0. Specimen D: Received is one formalin filled container labeled with the patient's name and designated left lower pretibial left of midline. The specimen consists of a shave biopsy measuring [id number]. Jar 0. 2 9:19 AM [facility] Microscopic Description Specimen A. SKIN, [...] are increased in number. 2 9:19 AM [facility] Disclaimer An external and internal positive and negative controls are appropriate for the histochemical, immunohistochemical and immunofluorescence stain(s) in this case (if any), except where stated explicitly. The performance characteristics of the stain(s) cited in this report were developed and its performance characteristic determined by the Dermatopathology Laboratory at [facility], directed by Dr. Alphonso Gee. These tests need not be, and therefore are not, approved by the [place] Food and Drug Administration. The tests are used for clinical purposes. Billing Codes Specimen Charges Stain Charges 62569 54294 33576 25420 1 1 1 1 2 9:19 AM [facility] Embedded Images 2 9:19 AM [...] ERABLES Edited Result - Final DERMATOPATHOLOGY LABORATORY [facility] - Department of Dermatology [facility] Specialized Medicine [address] [place] [address], [address] [phone] documented in this encounter Visit Diagnoses Not on filedocumented in this encounter Care Teams Commercial Field Inspector Relationship Specialty Start Date End Date Regino Husain MD [address] [facility] [address] [place] [address] PCP - General Internal Medicine 12/11/13 Regino Husain MD [address] [facility] [address] [place] [address] PCP - Attributed-Coventry MARION 08/08/19 10/05/22 Moe Gibson MD [address] [phone] PCP - Attributed-Coventry MA 10/06/22 Cruz Davis MD [address] [place] [address] Urology 11/05/21 11/29/23 Delroy Conrad MD [address] [address] Relocation Associate Cardiology 11/30/23 Basil Mondragon MD [address] [facility] [place] [address] Surgery 11/30/23 08/21/24 Brooke Nath MA Care Coordination Specialist 04/30/24 05/01/24 Basil Mondragon MD [address] [facility] [place] [address] Surgery 08/22/24 documented as of this encounter
--- OUTSIDE RECORDS SUMMARY | 2025-01-03 10:33 | XMS_ITS | Clinical Summary ---
Author Organization [facility] Address [address] [address] Phone Care Team Providers Care Clinical Product Specialist Name Role Phone Regino Husain MD Primary Care Provider [phone] Basil Mondragon MD Unavailable [phone] Allergies Active Allergy Reactions Criticality Noted Date [...] AM CDT): Right HH. Referred patient to [facility] [...] stenosis Assessment & Plan (07/13/2023 10:01 AM MOTION PICTURE EQUIPMENT SUPERVISOR): Bilateral carotid artery stenosis status post left [...] Medical History Date Comments Hx Other Medical -RETAIL SUPPORT ASSOCIATE Calculus of kidney nephrolithias is Polyp of [...] often do you attend chur ch or gnosticism services? More than 4 times per year 10/05/2022 Do you belong to any clubs o r organizations such as voodoo groups, unions, fraternal or athletic groups, or [...] place to sleep or slept in a custodial (including now)? No 10/05/2022 Personal Safety Answer Date Recorded Getting School Help Needed Denies 08/10 Comments No Sex and Gender Information Value Date Recorded Sex Assigned at Not on file Legal Sex Female 1:51 PM MOTION PICTURE EQUIPMENT SUPERVISOR Gender Identity Not on file Sexual Orientation [...] 36.7 C (98.1 F) 10/05/2022 11:00 AM MOTION PICTURE EQUIPMENT SUPERVISOR Respiratory Rate 16 10/05/2022 11:00 AM MOTION PICTURE EQUIPMENT SUPERVISOR Oxygen Saturation 94% 03/05/2024 10:01 AM CDT [...] history exists Medical Devices Implanted Type Area Weld Technician Device Identifier Shelf Expiration Date Model / Serial / Lot Dental Implant [employer] Weck Horizon 24 Cartridge Ligate Triangulate Cross Section Heart [id number] - [id number] Implanted:Qty: 1 on 10/04/2022 by Basil Mondragon MD at [facility] [employer] [id number] / / [employer] Vascu-Guard 8x.8cm Peripheral Patch Vascular Bovine Pericardium [id number] - [id number] Implanted:Qty: 1 on 10/04/2022 by Basil Mondragon MD at [facility] Left: Carotid [employer] [id number] 04/22/2027 [id number] / / [id number] Insurance [place]ANTRA AETNA MEDICARE GOLD AETNA MEDICARE GOLD AETNA MEDICARE GOLD Advance Directives For more information, please contact: [phone] * Full Code (Latest Code Status on File) Date Activated Date Inactivated Comments 10/04/2022 3:15 PM 10/05/2022 7:21 PM * Full Code Date Activated Date Inactivated Comments 08/17/2022 9:13 PM 08/24/2022 8:24 PM Care Teams Clinical Product Specialist Relationship Specialty Start Date End Date Regino Husain MD PCP - General 12/28/07 Basil Mondragon MD [address] [facility] [address] [address] [address] Consulting Physician Vascular Surgery 10/05/22
--- OUTSIDE RECORDS SUMMARY | 2025-01-03 10:33 | XMS_ITS | Encounter Summary ---
Author Organization [facility] Address [address] [place] [address] Care Team Providers Care Nail Maker Name Role Phone Regino Husain MD Primary Care Provider Regino Husain MD Unavailable [phone] Cruz Davis MD Unavailable Moe Gibson MD Unavailable [phone] Delroy Conrad MD Unavailable [phone] Basil Mondragon MD Unavailable [phone] Brooke Nath MA Unavailable [phone] Basil Mondragon MD Unavailable [phone] Regino Husain MD Unavailable [phone] Encounter Details Date Type Department Care Team (Late Contact Info) Description 10/29/2015 Therapy Visit [facility] [address] [place] [address] Document, Scanned Social History Tobacco Use Types Packs/Day Years Used Date Smoking Tobacco: Former Cigarettes Q uit: 08/08/1963 Smokeless Tobacco: Never Alcohol Use Standard Drinks/Week Comments No 0 (1 standard drink = 0.6 oz pur e alcohol) Comments No Sex and Gender Information Value Date Recorded Sex Assigned at Not on file Legal Sex Female 6:29 AM RESIDENTIAL DESIGNER Gender Identity Not on file Sexual Orientation Not on file documented as of this encounter Plan of Treatment Upcoming Encounters Date Type Department Care Team (Late Contact Info) Description 04/02/2025 1:20 PM CDT Office Visit [facility] - Internal Medicine [address] [phone] Regino Husain MD [address] [place] [address] [address] [place] [address] documented as of this encounter Goals Goal Patient Goal Type Associated Problems Recent Progress Patient-Stated? Author Blood Pressure < 140/90 Blood Pressure 114/74(2024 11:07 AM RESIDENTIAL DESIGNER) No Linda Ferreira LDL JADE < 130 Result Component 70(09/11/2024 10:00 AM RESIDENTIAL DESIGNER) No Linda eFrreira documented as of this encounter Visit Diagnoses Not on filedocumented in this encounter Care Teams Nail Maker Relationship Specialty Start Date End Date Regino Husain MD [address] [place] [phone] PCP - General Internal Medicine 12/11/13 Regino Husain MD [address] [place] [phone] PCP - Attributed-Coventry MARION 08/08/19 10/05/22 Moe Gibson MD [address] [phone] PCP - Attributed-Coventry [place] 10/06/22 Regino Husain MD [address] [place] [address] [address] [place] [address] PCP - Attributed-Coventry MA 12/07/16 01/05/19 Cruz Davis MD [address] [place] [address] Urology 11/05/21 11/29/23 Delroy Conrad MD [address] [address] Tool Dresser Cardiology 11/30/23 Basil Mondragon MD [address] [facility] [address] [place] [address] [place] [address] Surgery 11/30/23 08/21/24 Brooke Nath MA Care Coordination Specialist 04/30/24 05/01/24 Basil Mondragon MD [address] [facility] [address] [place] [address] [place] [phone] Surgery 08/22/24 documented as of this encounter
--- OUTSIDE RECORDS SUMMARY | 2025-01-03 10:33 | XMS_ITS | Clinical Summary ---
Author Organization [facility] (formerly [facility]) Address [address] [facility] [place] [address] Care Team Providers Care Rn Maternal Child Name Role Phone Regino Husain MD Primary Care Provider [phone] Moe Gibson MD Unavailable [phone] Delroy Conrad MD Unavailable [phone] Basil Mondragon MD Unavailable [phone] Source Comments [facility],non-owned Affiliates and Associated Physician Practices is amultiple site organization consisting of ambulatory clinics and hospital sitesin [place], [place], [place] and [place]. This disclosure is being madepursuant to the Care Everywhere program and may not contain all information available regarding this patient. Last updated 18.[facility] (formerly [facility]) Allergies No known active allergies Medications * [...] changes Assessment & Plan (08/22/2024 11:16 AM TRUST ADMINISTRATOR): Continue asa Assessment & Plan (11/30/2023 9:10 [...] pepcid Assessment & Plan (08/22/2024 11:16 AM TRUST ADMINISTRATOR): Continue pepcid Assessment & Plan (05/27/2023 10:47 [...] ambien Assessment & Plan (08/22/2024 11:17 AM TRUST ADMINISTRATOR): Try qod ambien/trazodone Assessment & Plan (05/27/2023 10:50 AM CDT): Switch to elavil, consider gabapentin, alternating Assessment & Plan (01/17/2020 10:45 AM CDT): Monitor off medication Assessment & Plan (06/14/2019 1:55 PM TRUST ADMINISTRATOR): Continue current medication. Assessment & Plan (11/23/2018 1:20 PM CDT): Continue current medication. Try taking 1/2 tab weekly Assessment & Plan (12/08/2017 9:00 AM CDT): Continue current medication. Assessment & Plan (12/10/2014 3:20 PM CDT): Continue current med/dose. Assessment & Plan (06/13/2014 12:02 PM TRUST ADMINISTRATOR): Continue current med/dose. Assessment & Plan (12/11/2013 11:37 AM CDT): Continue current med/dose. Hypothyroidism Overview (01/06/2017): Compliant with med. Weight/energy ok. Assessment & Plan (08/22/2024 11:16 AM TRUST ADMINISTRATOR): Check tsh/t4 Assessment & Plan (11/30/2023 9:10 [...] accordingly. Assessment & Plan (06/14/2019 1:55 PM TRUST ADMINISTRATOR): Check tsh/t4 Assessment & Plan (11/23/2018 1:19 PM CDT): Check tsh/t4 Assessment & Plan (06/22/2018 10:58 AM TRUST ADMINISTRATOR): Check tsh/t4 Assessment & Plan (12/08/2017 9:00 AM CDT): Check tsh/t4 Assessment & Plan (07/07/2017 1:15 PM TRUST ADMINISTRATOR): Check tsh/t4 Assessment & Plan (01/06/2017 1:19 PM CDT): Check tsh/t4 Assessment & Plan (07/08/2016 1:18 PM TRUST ADMINISTRATOR): Continue current medication. Assessment & Plan (01/01/2016 1:23 PM CDT): Check tsh/t4 Assessment & Plan (06/19/2015 11:10 AM TRUST ADMINISTRATOR): Check tsh/t4. Assessment & Plan (12/10/2014 3:19 PM CDT): Check labs and adjust medication accordingly. Assessment & Plan (06/13/2014 12:01 PM TRUST ADMINISTRATOR): Check labs and adjust medication accordingly. Assessment & Plan (12/11/2013 11:36 AM CDT): Check labs and adjust medication accordingly. HTN (hypertension) Overview (05/13/2022): . BP controlled at home. No crowder/cp/palpitation Assessment & Plan (08/22/2024 11:14 AM TRUST ADMINISTRATOR): Continue current medication Assessment & Plan (11/30/2023 [...] dose Assessment & Plan (06/14/2019 1:53 PM TRUST ADMINISTRATOR): Continue current medication. Assessment & Plan (11/23/2018 1:19 PM CDT): Continue current medication. Assessment & Plan (06/22/2018 10:58 AM TRUST ADMINISTRATOR): Switch to amlodipine 5 mg qd, may need higher dose Assessment & Plan (12/08/2017 9:08 AM CDT): Increase toprol to bid Assessment & Plan (07/07/2017 1:13 PM TRUST ADMINISTRATOR): Continue current medication. Assessment & Plan (01/06/2017 1:05 PM CDT): Continue present medication. Assessment & Plan (07/08/2016 1:17 PM TRUST ADMINISTRATOR): Continue current medication. Assessment & Plan (01/01/2016 1:23 PM CDT): Continue current medication. Assessment & Plan (06/19/2015 11:09 AM TRUST ADMINISTRATOR): Continue current medication. Assessment & Plan (12/10/2014 3:27 PM CDT): Switch norvasc to metoprolol due le edema Assessment & Plan (06/13/2014 12:01 PM TRUST ADMINISTRATOR): Continue current med/dose. Assessment & Plan (12/11/2013 11:36 AM CDT): Continue current med/dose. Hyperlipidemia Overview (05/21/2020): Compliant with med/diet. No myalgia. Assessment & Plan (08/22/2024 11:15 AM TRUST ADMINISTRATOR): Check lipid/liver Assessment & Plan (11/30/2023 9:10 [...] accordingly. Assessment & Plan (06/14/2019 1:54 PM TRUST ADMINISTRATOR): Check labs and adjust medication accordingly. Assessment & Plan (11/23/2018 1:19 PM CDT): Check labs and adjust medication accordingly. Assessment & Plan (06/22/2018 10:58 AM TRUST ADMINISTRATOR): Check labs and adjust medication accordingly. Assessment & Plan (12/08/2017 9:00 AM CDT): Check labs and adjust medication accordingly. Assessment & Plan (07/07/2017 1:15 PM TRUST ADMINISTRATOR): Check labs and adjust medication accordingly. Assessment & Plan (01/06/2017 1:18 PM CDT): Check labs and adjust medication accordingly. Assessment & Plan (07/08/2016 1:18 PM TRUST ADMINISTRATOR): Continue current medication. Assessment & Plan (01/01/2016 1:24 PM CDT): Check labs and adjust medication accordingly. Assessment & Plan (06/19/2015 11:10 AM TRUST ADMINISTRATOR): Check labs and adjust medication accordingly. Assessment & Plan (12/10/2014 3:20 PM CDT): Check labs and adjust medication accordingly. Assessment & Plan (06/13/2014 12:01 PM TRUST ADMINISTRATOR): Check labs and adjust medication accordingly. Assessment & Plan (12/11/2013 11:34 AM CDT): Check labs and adjust medication accordingly. Resolved Problems Problem Noted Date Diagnosed Date Resolved Date Venous ulcer of ankle, left 02/20/2024 08/22/2024 Hyperglycemia 11/05/2021 09/12/2024 Overview (11/05/2021): Working on diet Assessment & Plan (08/22/2024 11:16 AM TRUST ADMINISTRATOR): Check labs Assessment & Plan (11/30/2023 9:11 AM CDT): Check labs Assessment & Plan (05/27/2023 10:47 AM CDT): Check labs Assessment & Plan (11/18/2022 10:11 AM CDT): Check labs Assessment & Plan (05/13/2022 10:12 AM CDT): Check labs Assessment & Plan (11/05/2021 2:46 PM CDT): Check labs Encounters Date Type Department Care Team Description 10/26/2024 Refill [facility] - Internal Medicine [address] [place] [address] Regino Husain MD Refill Request from Last [...] on file Legal Sex Female 6:29 AM TRUST ADMINISTRATOR Gender Identity Not on file Sexual Orientation Not on file Last Filed Vital Signs Vital Sign Reading Time Taken Comments Blood Pressure 114/74 08/22/2024 11:07 AM TRUST ADMINISTRATOR Pulse 69 08/22/2024 11:07 AM TRUST ADMINISTRATOR Temperature 36.4 C (97.6 F) 03/07/2024 11:31 AM CDT Respiratory Rate 16 03/07/2024 11:31 AM CDT Oxygen Saturation 98% 08/22/2024 11:07 AM TRUST ADMINISTRATOR Inhaled Oxygen Concentration - - Weight 71.8 kg (158 lb 6.4 oz) 08/22/2024 11:07 AM TRUST ADMINISTRATOR Height 163.8 cm (5' 4.5) 08/22/2024 11:07 AM CS T Body Mass Index 26.77 08/22/2024 11:07 AM TRUST ADMINISTRATOR Plan of Treatment Upcoming Encounters Date Type Department Care Team (Late st Contact Info) Description 04/02/2025 1:20 PM CDT Office Visit [facility] - Internal Medicine [address] [address] Regino Husain MD [address] [place] [phone] Health Maintenance Due Date Last Done [...] < 140/90 Blood Pressure 114/74(2024 11:07 AM TRUST ADMINISTRATOR) Linda Downing LDL JADE < 130 Result Component 70(09/11/2024 10:00 AM TRUST ADMINISTRATOR) Linda Downing Procedures Procedure Name Priority Date/Time Associated Diagnosis Comments HEMOGLOBIN A1C Routine 09/11/2024 10:00 AM TRUST ADMINISTRATOR Hyperglycemia DEXA BONE DENSITY 2 SITES Routine 01/01/2016 2:12 PM CDT Osteoporosis screening from Last 3 Months or Most Recently Relevant to Health Maintenance Results * (ABNORMAL) HEMOGLOBIN A1C (09/11/2024 10:00 AM TRUST ADMINISTRATOR) Hemoglobin A1c 7.3(H) <5.7 % of total [...] children. REPORT COMMENT: FASTING:YES Test Performed at: [facility] [phone] LAURY COE MD Blood BLOOD SPECIMEN / Unknown 09/11/2024 10:00 AM TRUST ADMINISTRATOR 09/11/2024 10:01 AM TRUST ADMINISTRATOR Regino Husain MD LAB - CHEMISTRY ORDERABLES F inal Result [address] [address] * DEXA BONE DENSITY 2 SITES (01/01/2016 2:12 PM CDT) Anatomical Region Laterality Modality Mammography 01/01/2016 4:07 PM CDT Narrative 01/01/2016 4:17 PM CDT Bone density study (DEXA): HISTORY: Postmenopausal woman. EXAM LOCATION: [facility] COMPARISON: No available comparison LUMBAR SPINE [...] to -2.5 Osteoporosis = -2.5 and below [facility]: [employer] [facility]: Flexion [facility] [address]: [employer] [facility]: Independent IP Lena C Procedure Note Ines Sampson MD - 01/01/2016 Bone density study (DEXA): HISTORY: Postmenopausal woman. EXAM LOCATION: [facility] COMPARISON: No available comparison LUMBAR SPINE [...] to -2.5 Osteoporosis = -2.5 and below [facility]: [employer] [facility]: [employer] [facility] [address]: [employer] [facility]: Independent IP Lena C us Regino Husain MD DEXA ORDERABLES Final Result from Last 3 Months or Most Recently Relevant to Health Maintenance Insurance AETNA MEDICARE ADV AETNA Care Teams Rn Maternal Child Relationship Specialty Start Date End Date Regino Husain MD [address] [facility] [address] [place] [phone] PCP - General Internal Medicine 12/11/13 Moe Gibson MD [address] [phone] PCP - Attributed-[place] 10/06/22 Delroy Conrad MD [address] [address] Poured Concrete Wall Technician Cardiology 11/30/23 Basil Mondragon MD [address] [facility] [place] [address] Surgery 08/22/24
--- OUTSIDE RECORDS SUMMARY | 2025-01-03 10:33 | XMS_ITS | Encounter Summary ---
Author Organization [facility] Address [address] [place] [address] Care Team Providers Care Lathe Puller Name Role Phone Regino Husain MD Primary Care Provider [phone] Basil Mondragon MD Unavailable [phone] Encounter Details Date Type Department Care Team (Late st Contact Info) Description 09/28/2022 Telephone [facility] Cardiac Fastener Sewing Machine Operator [address] [place] [address] Marga Osorio, RN Social History [...] often do you attend chur ch or worship services? More than 4 times per year 08/18/2022 Do you belong to any clubs o r organizations such as congregation groups, unions, fraternal or athletic groups, or [...] place to sleep or slept in a chcf (including now)? No 08/18/2022 Comments No Sex and Gender Information Value Date Recorded Sex Assigned at Not on file Legal Sex Female 1:51 PM SENIOR DIRECTOR OF STRATEGY Gender Identity Not on file Sexual Orientation Not on file documented as of this encounter Plan of Treatment Not on file documented as of this encounter Visit Diagnoses Not on filedocumented in this encounter Care Teams Lathe Puller Relationship Specialty Start Date End Date Regino Husain MD PCP - General 12/28/07 Basil Mondragon MD [address] [facility] [address] [place] [address] [address] Consulting Physician Vascular Surgery 10/05/22 documented as of this encounter
--- OUTSIDE RECORDS SUMMARY | 2025-01-03 10:33 | XMS_ITS | Clinical Summary ---
Author Organization [facility] Address [address] [facility] [place] [address] Phone Care Team Providers Care Curtain Drier Name Role Phone Regino Husain MD Primary [...] age to complete this topic Care Teams Curtain Drier Relationship Specialty Start Date End Date Regino Husain MD [address] [address] PCP - General Internal Medicine 04/29/20
--- OUTSIDE RECORDS SUMMARY | 2025-01-03 10:33 | XMS_ITS | Encounter Summary ---
Author Organization [facility] Address [address] [place] [address] Care Team Providers Care Sweeper Cleaner Industrial Name Role Phone Regino Husain MD Primary Care Provider Regino Husain MD Unavailable [phone] Cruz Davis MD Unavailable Moe Gibson MD Unavailable [phone] Delroy Conrad MD Unavailable [phone] Basil Mondragon MD Unavailable Brooke Nath MA Unavailable [phone] Basil Mondragon MD Unavailable [phone] Regino Husain MD Unavailable [phone] Encounter Details Date Type Department Care Team (Late Contact Info) Description 09/22/2015 Therapy Visit [id number] [address] [place] [address] Document, Scanned Social History Tobacco Use Types Packs/Day Years Used Date Smoking Tobacco: Former Cigarettes Q uit: 08/08/1963 Smokeless Tobacco: Never Alcohol Use Standard Drinks/Week Comments No 0 (1 standard drink = 0.6 oz pur e alcohol) Comments No Sex and Gender Information Value Date Recorded Sex Assigned at Not on file Legal Sex Female 6:29 AM STICKER ON Gender Identity Not on file Sexual Orientation Not on file documented as of this encounter Plan of Treatment Upcoming Encounters Date Type Department Care Team (Late Contact Info) Description 04/02/2025 1:20 PM CDT Office Visit [facility] - Internal Medicine [address] [phone] Regino Husain MD [address] [place] [address] [address] [place] [address] documented as of this encounter Goals Goal Patient Goal Type Associated Problems Recent Progress Patient-Stated? Author Blood Pressure < 140/90 Blood Pressure 114/74(2024 11:07 AM STICKER ON) No Linda Ferreira LDL JADE < 130 Result Component 70(09/11/2024 10:00 AM STICKER ON) No Linda Ferreira documented as of this encounter Visit Diagnoses Not on filedocumented in this encounter Care Teams Sweeper Cleaner Industrial Relationship Specialty Start Date End Date Regino Husain MD [address] [place] [phone] PCP - General Internal Medicine 12/11/13 Regino Husain MD [address] [place] [phone] PCP - Attributed-[place] 08/08/19 10/05/22 Moe Gibson MD [address] [phone] PCP - Attributed-[place] 10/06/22 Regino Husain MD [address] [place] [address] [address] [place] [address] PCP - Attributed-[place] 12/07/16 01/05/19 Cruz Davis MD [address] [place] [address] Urology 11/05/21 11/29/23 Delroy Conrad MD [address] [address] Thread Clipper Cardiology 11/30/23 Basil Mondragon MD [address] [facility] [address] [place] [address] [place] [phone] Surgery 11/30/23 08/21/24 Brooke Nath MA Care Coordination Specialist 04/30/24 05/01/24 Basil Mondragon MD [address] [facility] [address] [place] [phone] Surgery 08/22/24 documented as of this encounter
--- OUTSIDE RECORDS SUMMARY | 2025-01-03 10:33 | XMS_ITS | Referral Summary ---
Author Organization [facility] Address [address] [address] Phone Care Team Providers Care Drawer Hardware Worker Name Role Phone Regino Husain MD Primary Care Provider [phone] Basil Mondragon MD Unavailable [phone] Allergies Active Allergy Reactions Criticality Noted Date [...] AM CDT): Right HH. Referred patient to [facility] for [...] stenosis Assessment & Plan (07/13/2023 10:01 AM MEMORY CARE PROGRAM DIRECTOR): Bilateral carotid artery stenosis status post left [...] How often do you attend chur or jewish services? More than 4 times per year 10/05/2022 Do you belong to any clubs o r organizations such as bahai groups, unions, fraternal or athletic groups, or [...] place to sleep or slept in a long-term (including now)? No 10/05/2022 Personal Safety Answer Date Recorded Getting School Help Needed Denies 08/10 Comments No Sex and Gender Information Value Date Recorded Sex Assigned at Not on file Legal Sex Female 1:51 PM MEMORY CARE PROGRAM DIRECTOR Gender Identity Not on file Sexual Orientation Not on file Last Filed Vital Signs Vital Sign Reading Time Taken Comments Blood Pressure 124/50 03/05/2024 10:01 AM CDT Pulse 55 03/05/2024 10:01 AM CDT Temperature 36.7 C (98.1 F) 10/05/2022 11:00 AM MEMORY CARE PROGRAM DIRECTOR Respiratory Rate 16 10/05/2022 11:00 AM MEMORY CARE PROGRAM DIRECTOR Oxygen Saturation 94% 03/05/2024 10:01 AM CDT Inhaled Oxygen Concentration - - Weight 73 kg (161 lb) 03/05/2024 10:01 AM CDT Height 167.6 cm (5' 6) 03/05/2024 10:01 AM CDT Body Mass Index 25.99 03/05/2024 10:01 AM CDT Plan of Treatment Not on file Medical Devices Implanted Type Area Participant Administrator Device Identifier Shelf Expiration Date Model / Serial / Lot Dental Implant Mouth RIGID Weck Horizon 24 Cartridge Ligate Triangulate Cross Section Heart [id number] - [id number] Implanted:Qty: 1 on 10/04/2022 by Basil Mondragon MD at [facility] [employer] [id number] / / [employer] Vascu-Guard 8x.8cm Peripheral Patch Vascular Bovine Pericardium [id number] - [id number] Implanted:Qty: 1 on 10/04/2022 by Basil Mondragon MD at [facility] Left: Carotid [employer] [id number] 04/22/2027 [id number] / / [id number] Insurance [facility] AETNA MEDICARE GOLD AETNA MEDICARE GOLD AETNA MEDICARE GOLD Advance Directives For more information, please contact: [phone] * Full Code (Latest Code Status on File) Date Activated Date Inactivated Comments 10/04/2022 3:15 PM 10/05/2022 7:21 PM * Full Code Date Activated Date Inactivated Comments 08/17/2022 9:13 PM 08/24/2022 8:24 PM Care Teams Drawer Hardware Worker Relationship Specialty Start Date End Date Regino Husain MD PCP - General 12/28/07 Basil Mondragon MD [address] [facility] [address] [address] Consulting Physician Vascular Surgery 10/05/22
--- OUTSIDE RECORDS SUMMARY | 2025-01-03 10:33 | XMS_ITS | Encounter Summary ---
Author Organization [facility] Address [address] [place] [address] Care Team Providers Care Care Trainer Name Role Phone Regino Husain MD Primary Care Provider Moe Gibson MD Unavailable [phone] Delroy Conrad MD Unavailable [phone] Basil Mondragon MD Unavailable [phone] Brooke Nath MA Unavailable [phone] Basil Mondragon MD Unavailable [phone] Reason for Visit * Reason Onset Date Comments Medicare Subsequent Annual Wellness Visit 2023 Left message Encounter Details Date Type Department Care Team (Late st Contact Info) Description 04/10/2024 Telephone [facility] - Internal Medicine [facility] [address] [address] Regino Husain MD [address] [place] [phone] Medicare Subsequent Annual Wellness Visit (Left [...] on file Legal Sex Female 6:29 AM PATHOLOGY TECH Gender Identity Not on file Sexual Orientation [...] Description 04/02/2025 1:20 PM CDT Office Visit [facility] - Internal Medicine [address] [place] [address] Regino Husain MD [address] [place] [phone] documented as of this encounter Goals Goal Patient Goal Type Associated Problems Recent Progress Patient-Stated? Author Blood Pressure < 140/90 Blood Pressure 114/74(2024 11:07 AM PATHOLOGY TECH) Linda Downing LDL JADE < 130 Result Component 70(09/11/2024 10:00 AM PATHOLOGY TECH) Linda Downing documented as of this encounter Visit Diagnoses Not on filedocumented in this encounter Care Teams Care Trainer Relationship Specialty Start Date End Date Regino Husain MD [address] [facility] [address] [place] [phone] PCP - General Internal Medicine 12/11/13 Moe Gibson MD [address] [phone] PCP - Attributed-[facility] 10/06/22 Delroy Conrad MD [address] [phone] Professor Of Economics Cardiology 11/30/23 Basil Mondragon MD [address] [facility] [address] [place] [address] [place] [phone] Surgery 11/30/23 08/21/24 Brooke Nath MA Care Coordination Specialist 04/30/24 05/01/24 Basil Mondragon MD [address] [facility] [address] [place] [place] [phone] Surgery 08/22/24 documented as of this encounter
[2025-01-03 10:44] LABS: Basophils Absolute Auto 0.1 K/mm3 (0.0-0.1); Basophils Percent Auto 0.8 % (0.2-1.2); Eosinophils Absolute Auto 0.2 K/mm3 (0-0.3); Eosinophils Percent Auto 1.7 % (0-4.4); Hematocrit 38.3 % (37.0-47.0); Hemoglobin 13.3 g/dL (12.0-15.0); Immature Granulocyte Absolute 0.03 K/mm3 (0.00-0.031); Immature Granulocyte Percent A 0.3 % (0-0.5); Lymphocytes Absolute Auto 2.31 K/mm3 (0.9-3.2); Lymphocytes Percent Auto 25.1 % (18.3-44.2); Mean Corpuscular HGB Conc 34.7 g/dl (32-36); Mean Corpuscular Hemoglobin 30.9 pg (26-34); Mean Corpuscular Volume 89.1 fl (80-100); Mean Platelet Volume 10.4 fl (7.4-10.4); Monocytes Percent Auto 10.4 % (2.6-8.5); Neutrophils Absolute Auto 5.7 K/mm3 (1.3-6.7); Neutrophils Percent Auto 61.7 % (45.5-73.1); Platelet Count Result 223 k/mm3 (150-375); Red Cell Distribution Width 13.2 % (11.5-14.5); White Blood Count 9.2 K/mm3 (4.5-10.0)
[2025-01-03] MEDS: ACETAMINOPHEN 500 MG TABLET 1000 MG PO (10:51)
[2025-01-03] MEDS: LIDOCAINE 5% PATCH 1 PATCH TRANSDERM (10:52)
[2025-01-03 10:55] LABS: INR 0.9; Prothrombin Time 12.4 Seconds (11.1-14.7)
[2025-01-03 10:56] LABS: Partial Thromboplastin Time 22.4 Seconds (22.3-36.8)
[2025-01-03 10:58] LABS: Alanine Aminotransferase 17 U/L (6-35); Albumin Level 4.3 g/dL (3.5-5.1); Alkaline Phosphatase 55 U/L (38-126); Anion Gap 11 mmol/L (4-12); Aspartate Amino Transferase 23 U/L (14-36); Bilirubin,Total 1.2 mg/dL (0.2-1.3); Blood Urea Nitrogen 13 mg/dL (7-17); Calcium 9.1 mg/dL (8.4-10.2); Carbon Dioxide 23 mmol/L (22-30); Chloride 107 mmol/L (98-107); Estimated CRCL calculation 35 ml/min; Estimated Glomerular Filt Rate 58; Glucose 112 mg/dL (65-110); Potassium 3.2 mmol/L (3.4-5.0); Sodium 141 mmol/L (137-145)
[2025-01-03] MEDS: POTASSIUM CHLORIDE 20 MEQ ER TABLET 40 MEQ PO (11:59)
--- NOTE | 2025-01-03 12:02 | PC.NURSE ---
Patient states her pain is tolerable right now and did not want to take her pain pill at this time.
[2025-01-03 12:07] LABS: Magnesium 1.3 mg/dL (1.6-2.3)
[2025-01-03 12:23] LABS: Add Urine Microscopic? NO; Appearance Urine Clear (Clear); Bilirubin Urine Negative (Negative); Blood Urine Negative (Negative); Color Urine Yellow (Yellow); Glucose Urine UA Negative (Negative); Ketones Urine Negative (Negative); Leukocyte Esterase Ur Negative LEU/UL (Negative); Nitrate Urine Negative (Negative); Protein Urine Negative (Negative); Specific Grav Ur 1.009 (1.001-1.035); Urobilinogen Urine 0.2 mg/dL (<2.0); pH Urine 7.5 (5.0-9.0)
[2025-01-03] MEDS: MAGNESIUM SULF 2 GM/WATER 50ML 2 GM/50 ML BAG IVPB (12:39)
--- NOTE | 2025-01-03 12:48 | PM.IMHP ---
H&P: HPI History of Present Illness Date/Time: 01/03/25 12:48 Chief Complaint: Back/Flank Pain Narrative: 89 y/o F with PMH of CVA (residual mild right facial droop, short-term memory impairment, right hemianopsia), skin cancer, kidney stones, carotid stenosis bilateral, hypothyroidism, hyperlipidemia and hypertension presents here with back/flank pain. The patient presents here from home on 01/03 for further evaluation of right lower back pain/flank pain. She reports onset after a fall on Tuesday, 12/31. She reports she got up in the middle of the night to use the restroom when she tripped and fell into a dresser. She is unsure what she landed on. She denies loss of consciousness or head strike. Since the fall she has been ambulatory, however she has had increasing difficulty getting around and has now been unable to get up due to the pain. She reports associated shortness of breath with exertion or with conversation. She denies neck pain, weakness/numbness in her extremities, or hemoptysis. She is on clopidogrel due to history of CVA, no further anticoagulation or anti-platelet therapy. Initial VS at presentation: 98? F, HR 69, RR 22, 172/59, and 100% on RA. ED workup showed: No leukocytosis, no anemia, normal coags, potassium 3.2, creatinine 0.91 and GFR 58, glucose 112, magnesium 1.3, and UA unremarkable. Head CT showed no acute fracture or acute intracranial process, chronic infarct involving the left posterior cerebral artery vascular distribution additional small old lacunar infarct involving the right caudate nucleus. C-spine CT showed severe degenerative disease without acute fracture identified. CT w/con of the chest/abdomen/pelvis showed multiple mildly displaced fractures of the posterior right 10th and 11th ribs, very small right pleural effusion no pneumothorax, mild bilateral hydronephrosis and proximal hydroureter without evidence of obstructing stone or mass with prominent distention of the bladder suggesting either bladder outlet obstruction or neurogenic bladder, multinodular goiter post prior left thyroidectomy with nodules measuring up to 1.9 cm of the right thyroid lobe. 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, with right homonymous hemianopsia Skin cancer Kidney stones Carotid stenosis, bilateral carotid enterectomy, left, 2022 Hypothyroid GERD (gastroesophageal reflux disease) Hyperlipidemia Hypertension Surgical History Surgical History History of tonsillectomy History of partial thyroidectomy Status post cataract extraction of both eyes with insertion of intraocular lens History of extraction of renal calculus S/P bladder repair H/O shoulder surgery Right rotator cuff H/O: hysterectomy H/O colonoscopy Family History Family History Sibling Hypertension Family history of diabetes mellitus in first degree relative Family history of coronary artery disease Mother Family history of congenital heart disease, Onset Age: 84 Patient's mother is Social History Social History Social History: She is . She has 2 biological children and 4 step children. She has 2 dogs and 1 cat. She retired from [employer]. She has worked and many retail sales. She smoked 1 pack of cigarettes per day for 10 years but quit when she was in her early 30s. She does not use any alcohol, marijuana or illicit drugs. Code status: DNR/DNI (the patient states that she has lived a good life and her age would not want cardiac resuscitation to be placed on a ventilator) Surrogate decision maker: Anson () Smoking packs per day: 1 Smoking cigarettes per day: 20.0 Years smoked: 10 Smoking pack-years: 10.00 Smoking status: Former smoker Second hand tobacco smoke exposure: No Additional smoking assessment comments: 1 PACK/WEEK X 10 YRS Alcohol intake: never Substance use: never Substance use type: does not use Do You Feel Safe in your Home?: Yes Lack of Transportation: No Lack of Food: Never True Current Housing: I Have Housing Concerned About Future Housing: No Difficulty Paying Gas/Electric Bills: No Difficulty Paying for Meds: No Currently Unemployed: No Education: Don't Know Difficulty w/ Childcare or Family Care: No Living arrangements: with family Additional living arrangements comments: [facility] Gender identity (if verbalized by the patient): Female Sexual Orientation (if Verbalized by the Patient): Straight or Heterosexual Spiritual care concerns: No Agree to blood products: Yes Meds Home Medications and Allergies Home Medications ?Medication ?Instructions ?Recorded ?Confirmed ?Type amlodipine 5 mg tablet 5 mg PO BID 06/08/19 01/03/25 History levothyroxine 50 mcg tablet 50 mcg PO QAM 06/08/19 01/03/25 History losartan 100 mg tablet 100 mg PO QAM 06/08/19 01/03/25 History aspirin 81 mg tablet,delayed 81 mg PO DAILY 06/09/21 01/03/25 History release atorvastatin 80 mg tablet 80 mg PO DAILY 10/16/22 01/03/25 History carvedilol 3.125 mg tablet 3.125 mg PO BID 10/16/22 01/03/25 History clonidine HCl 0.2 mg tablet 0.2 mg PO BID 10/16/22 01/03/25 History hydralazine 50 mg tablet 50 mg PO TID 10/16/22 01/03/25 History amitriptyline 25 mg tablet 25 mg PO HS 12/04/23 01/03/25 History cephalexin 500 mg capsule 500 mg PO Q8H 7 days #21 caps 12/29/24 01/03/25 Rx Allergies Allergy/AdvReac Type Severity Reaction Status Date / Time Sulfa (Sulfonamide Allergy Unknown Vomiting, Verified 01/03/25 14:41 Antibiotics) DIARRHEA Vital Signs Vital Signs - 24 hr 01/03/25 09:50 01/03/25 10:56 01/03/25 12:44 Temperature 98 F Pulse Rate 69 75 73 Respiratory Rate 22 H 20 20 Blood Pressure 172/59 H 176/77 H 158/74 H Pulse Oximetry 100 99 99 Oxygen Delivery Room Air Exam Narrative: pain to right posterior ribs. irregular, +murmur. Const: General: no acute distress Other: Mild discomfort noted with movement. , female, elderly, nontoxic appearance. HENMT: Face/Nose/Sinus: Normal nares present Mouth: Yes moist mucous membranes Eyes: General: appearance normal, both eyes and all related structures Sclera: sclerae normal Pupils: Equal, round and reactive pupils present EOM: EOMs intact bilaterally Resp: Effort & Inspection: normal respiratory effort Auscultation: clear to auscultation bilaterally Cardio: Rate: regular rate Rhythm: abnormal rhythm Other: + murmur GI: Other: Abdomen soft, nondistended, nontender. Normoactive bowel sounds in all quadrants. Back/Spine/Pelvis: Back: back tenderness (Right flank/right lower chest wall/back) Skin: General skin exam: normal color and no rashes or lesions noted Wounds: no wounds Neuro: Speech: normal speech Motor exam (neuro): 5/5 motor strength present throughout Sensory Exam: normal sensation Other: alert, short term memory impairment noted. Extrem: General: normal to inspection Psych: Mental Status: mental status grossly normal Affect: normal affect Other: Fair insight and judgment, very pleasant H&P: Results Labs Labs: Short CBC 01/03/25 Range/Units 10:37 WBC 9.2 (4.5-10.0) K/mm3 Hgb 13.3 (12.0-15.0) g/dL Hct 38.3 (37.0-47.0) % Plt Count 223 (150-375) k/mm3 BMP 01/03/25 10:37 Sodium 141 Potassium 3.2 L Chloride 107 Carbon Dioxide 23 BUN 13 D Creatinine 0.91 Glucose 112 H Calcium 9.1 Liver Function 01/03/25 Range/Units 10:37 Total Bilirubin 1.2 (0.2-1.3) mg/dL AST 23 (14-36) U/L ALT 17 (6-35) U/L Alkaline Phosphatase 55 (38-126) U/L Albumin 4.3 (3.5-5.1) g/dL Urine 01/03/25 Range/Units 12:04 Urine Color Yellow (Yellow) Urine Appearance Clear (Clear) Urine pH 7.5 (5.0-9.0) Ur Specific [place] 1.009 (1.001-1.035) Urine Protein Negative (Negative) mg/dL Urine Glucose (UA) Negative (Negative) mg/dL Assessment and Plan Assessment and plan (1) Ribs, multiple fractures: Qualifiers: Encounter type: initial encounter Fracture type: closed Laterality: right Qualified Code(s): S22.41XA - Multiple fractures of ribs, right side, initial encounter for closed fracture Code(s): S22.49XA - Multiple fractures of ribs, unspecified side, initial encounter for closed fracture Status: Acute Assessment and Plan: - head CT and C-spine CT showed no evidence of acute fractures/traumatic findings - CT W/con chest/abdomen/pelvis: 1. Multiple mildly displaced fractures of the posterior right 10th and 11th ribs. 2. Very small right pleural effusion. No pneumothorax. 3. Mild bilateral hydronephrosis and proximal hydroureter without evident obstructing stone or mass with prominent distention of the bladder suggesting either bladder outlet obstruction or neurogenic bladder. 4. Multinodular goiter post prior left thyroidectomy with nodules measuring up to 1.9 cm in the right thyroid lobe. - admission for pain control as the patient has been unable to get out of bed, may need acute rehab - incentive spirometer - PT/OT evaluation and treatment (2) Hypothyroid: Qualifiers: Hypothyroidism type: acquired Qualified Code(s): E03.9 - Hypothyroidism, unspecified Code(s): E03.9 - Hypothyroidism, unspecified Status: Chronic Assessment and Plan: - continue home medication: Levothyroxine 50 mcg daily (3) Hypertension: Qualifiers: Hypertension type: primary hypertension Qualified Code(s): I10 - Essential (primary) hypertension Code(s): I10 - Essential (primary) hypertension Status: Chronic Assessment and Plan: - chronic, currently 158/74 - continue home medications: Losartan, hydralazine, clonidine, Coreg, amlodipine - monitor Plan Mild hypokalemia (3.2) noted. Replaced with KCL 40 p.o. recheck in a.m.. Mild hypomagnesium noted (1.3). Repleted with 2G IVPB. Recheck in a.m.. Patient also noted to have mild bilateral hydronephrosis and proximal hydroureter without evident obstructing stone or mass with prominent distention of the bladder on CT. Check post-void residual. Diet: Heart healthy GI Prophylaxis: Not currently indicated DVT Prophylaxis: SCDs IV fluids: None Lines/Tubes: Peripheral IV Code Status: DNR Quality VTE Prophylaxis VTE prophylaxis: mechanical ordered Hospitalist [facility] Advance Care Plan I have confirmed that the patient's Advanced Care Plan is present, code status is documented, or surrogate decision maker is listed in patient medical record.: Yes Medication Reconciliation I have utilized all available resources to obtain, update and review the patients current medications (includes all prescriptions, OTC, herbals, cannabis, and nutritional supplements).: Yes
--- NOTE | 2025-01-03 13:55 | ADMGEN ---
This patient, Charla Fraire, was admitted to 2 Medical Room 255-01. Patient/family oriented to hospital policies and general routines including ID bracelet, bed and alarms, visiting hours, pain management, procedures, bathroom and other care routines, personal items, smoking policy, room service/diet, and visiting hours. Information on how to activate the Rapid Response Team has been discussed. Patient/Family are encouraged to report perceived risks to care and to ask questions if they do not understand what they are told or what they should do.
[2025-01-03] MEDS: MORPHINE SULFATE (*CRX) 2 MG/ML INJ IV PUSH (14:14)
[2025-01-03] MEDS: KETOROLAC 15 MG/ML VIAL (*BKC) IV PUSH (16:35)
[2025-01-03] MEDS: HYDROcodone/acetaminophen (*CRX) 5-325 MG TABLET 1 TAB PO (17:29)
[2025-01-04] VITALS: PULSE 71
[2025-01-04 03:45] VITALS: BP 138/48; PULSE 82; RESP 16; TEMP 36.8; O2SAT 95
[2025-01-04 04:00] VITALS: PULSE 75
[2025-01-04] MEDS: LEVOTHYROXINE SODIUM 50 MCG TABLET PO (05:07)
[2025-01-04] MEDS: HYDROcodone/acetaminophen (*CRX) 5-325 MG TABLET 1 TAB PO ×2 (05:07→09:25)
[2025-01-04 05:31] LABS: Anion Gap 11 mmol/L (4-12); Blood Urea Nitrogen 11 mg/dL (7-17); Calcium 9.3 mg/dL (8.4-10.2); Carbon Dioxide 23 mmol/L (22-30); Chloride 105 mmol/L (98-107); Estimated CRCL calculation 44 ml/min; Estimated Glomerular Filt Rate > 60; Glucose 139 mg/dL (65-110); Magnesium 1.9 mg/dL (1.6-2.3); Potassium 3.5 mmol/L (3.4-5.0); Sodium 139 mmol/L (137-145)
--- NOTE | 2025-01-04 07:06 | P.PNIM_ITS ---
Progress Note: A&P Assessment and Plan (1) Ribs, multiple fractures: Qualifiers: Encounter type: initial encounter Fracture type: closed Laterality: right Qualified Code(s): S22.41XA - Multiple fractures of ribs, right side, initial encounter for closed fracture Code(s): S22.49XA - Multiple fractures of ribs, unspecified side, initial encounter for closed fracture Status: Acute Assessment and Plan: * head CT and C-spine CT showed no evidence of acute fractures/traumatic findings * CT W/con chest/abdomen/pelvis: * Multiple mildly displaced fractures of the posterior right 10th and 11th ribs. * Very small right pleural effusion. No pneumothorax. * Mild bilateral hydronephrosis and proximal hydroureter without evident obstructing stone or mass with prominent distention of the bladder suggesting either bladder outlet obstruction or neurogenic bladder. * Multinodular goiter post prior left thyroidectomy with nodules measuring up to 1.9 cm in the right thyroid lobe. * admission for pain control as the patient has been unable to get out of bed, may need acute rehab * incentive spirometer * PT/OT evaluation and treatment (2) Hypothyroid: Qualifiers: Hypothyroidism type: acquired Qualified Code(s): E03.9 - Hypothyroidism, unspecified Code(s): E03.9 - Hypothyroidism, unspecified Status: Chronic Assessment and Plan: - continue home medication: Levothyroxine 50 mcg daily (3) Hypertension: Qualifiers: Hypertension type: primary hypertension Qualified Code(s): I10 - Essential (primary) hypertension Code(s): I10 - Essential (primary) hypertension Status: Chronic Assessment and Plan: - chronic, currently 158/74 - continue home medications: Losartan, hydralazine, clonidine, Coreg, amlodipine - monitor Plan Mild hypokalemia (3.2) noted. Replaced with KCL 40 p.o. recheck in a.m.. Mild hypomagnesium noted (1.3). Repleted with 2G IVPB. Recheck in a.m.. Patient also noted to have mild bilateral hydronephrosis and proximal hydroureter without evident obstructing stone or mass with prominent distention of the bladder on CT. Check post-void residual. Diet: Heart healthy GI Prophylaxis: Not currently indicated DVT Prophylaxis: SCDs IV fluids: None Lines/Tubes: Peripheral IV Code Status: DNR Subjective Date/time seen: 01/04/25 07:06 Interval history: 89 y/o F with PMH of CVA (residual mild right facial droop, short-term memory impairment, right hemianopsia), skin cancer, kidney stones, carotid stenosis bilateral, hypothyroidism, hyperlipidemia and hypertension presents here with back/flank pain. Review of Systems Review of Systems: All systems reviewed & are unremarkable except as noted in HPI and below Exam Narrative: pain to right posterior ribs. irregular, +murmur. Const: General: no acute distress Other: Mild discomfort noted with movement. , female, elderly, nontoxic appearance. HENMT: Face/Nose/Sinus: Normal nares present Mouth: Yes moist mucous membranes Eyes: General: appearance normal, both eyes and all related structures Sclera: sclerae normal Pupils: Equal, round and reactive pupils present EOM: EOMs intact bilaterally Resp: Effort & Inspection: normal respiratory effort Auscultation: clear to auscultation bilaterally Cardio: Rate: regular rate Rhythm: abnormal rhythm Other: + murmur GI: Other: Abdomen soft, nondistended, nontender. Normoactive bowel sounds in all quadrants. Back/Spine/Pelvis: Back: back tenderness (Right flank/right lower chest wall/back) Skin: General skin exam: normal color and no rashes or lesions noted Wounds: no wounds Neuro: Cranial nerves: Yes Equal, round and reactive pupils present Speech: normal speech Motor exam (neuro): 5/5 motor strength present throughout Sensory Exam: normal sensation Other: alert, short term memory impairment noted. Extrem: General: normal to inspection Psych: Mental Status: mental status grossly normal Affect: normal affect Other: Fair insight and judgment, very pleasant Objective Data Vital Signs Vital Signs: Vital Signs - 24 hr 01/03/25 09:50 01/03/25 10:56 01/03/25 12:44 Temperature 98 F Pulse Rate 69 75 73 Respiratory Rate 22 H 20 20 Blood Pressure 172/59 H 176/77 H 158/74 H Pulse Oximetry 100 99 99 Oxygen Delivery Room Air 01/03/25 13:32 01/03/25 14:40 01/03/25 16:00 Temperature 98.1 F Pulse Rate 72 82 Respiratory Rate 18 26 H Blood Pressure 150/78 H 184/96 H 174/84 H Pulse Oximetry 100 99 Oxygen Delivery 01/03/25 16:02 01/03/25 19:52 01/03/25 20:00 Temperature 97.8 F Pulse Rate 75 73 Respiratory Rate 17 Blood Pressure 150/50 H Pulse Oximetry 96 Oxygen Delivery Room Air 01/03/25 20:00 01/03/25 23:37 01/04/25 00:00 Temperature 98.5 F Pulse Rate 69 71 71 Respiratory Rate 17 Blood Pressure 152/57 H Pulse Oximetry 93 Oxygen Delivery 01/04/25 03:45 01/04/25 04:00 Temperature 98.3 F Pulse Rate 82 75 Respiratory Rate 16 Blood Pressure 138/48 L Pulse Oximetry 95 Oxygen Delivery Intake/Output Intake/Output: Intake & Output 01/01/25 01/02/25 01/03/25 01/04/25 23:59 23:59 23:59 23:59 Intake Total 570 Output Total 1350 400 Balance -780 -400 Meds/Results Medications: Active Medications Generic Name Dose Route Start Last Admin Trade Name Freq PRN Reason Stop Dose Admin Hydrocodone Bitart/Acetaminophen 1 tab 01/03/25 13:05 01/04/25 05:07 Hydrocodone/Acetaminophen (*Crx) 5-325 Mg Tablet PO 1 tab Q4H PRN Administration Pain Rated 4-6 Amitriptyline HCl 25 mg 01/04/25 21:00 Amitriptyline Hcl 25 Mg Tablet PO HS [facility] Amlodipine Besylate 5 mg 01/04/25 09:00 Amlodipine Besylate 5 Mg Tablet PO BID [facility] Aspirin 81 mg 01/04/25 09:00 Aspirin 81 Mg Enteric Tablet PO DAILY [facility] Atorvastatin Calcium 80 mg 01/04/25 09:00 Atorvastatin 40 Mg Tablet PO DAILY [facility] Carvedilol 3.125 mg 01/04/25 09:00 Carvedilol 3.125 Mg Tablet PO Q12HR [facility] Clonidine HCl 0.2 mg 01/04/25 09:00 Clonidine Hcl 0.2 Mg Tablet PO BID [facility] Hydralazine HCl 50 mg 01/04/25 09:00 Hydralazine Hcl 50 Mg Tablet PO TID [facility] Ketorolac Tromethamine 15 mg 01/03/25 16:18 01/03/25 16:35 Ketorolac 15 Mg/Ml Vial (*Bkc) IV PUSH 15 mg Q6H PRN Administration Pain Rated 1-3 Levothyroxine Sodium 50 mcg 01/04/25 06:30 01/04/25 05:07 Levothyroxine Sodium 50 Mcg Tablet PO 50 mcg DAILY@0630 [facility] Administration Losartan Potassium 100 mg 01/04/25 09:00 Losartan Potassium 100 Mg Tablet PO QAM [facility] Morphine Sulfate 2 mg 01/03/25 13:05 01/03/25 14:14 Morphine Sulfate (*Crx) 2 Mg/Ml Inj IV PUSH 2 mg Q4H PRN Administration Pain Rated 7-10 Radiology Results: ITS Impressions Head CT 01/03/25 11:31 IMPRESSION: 1. No fracture or acute intracranial process. 2. Chronic infarct involving the left posterior cerebral artery vascular distribution additional small old lacunar infarct involving the right caudate nucleus. Chest/Abdomen/Pelvis CT 01/03/25 11:43 IMPRESSION: 1. Multiple mildly displaced fractures of the posterior right 10th and 11th ribs. 2. Very small right pleural effusion. No pneumothorax. 3. Mild bilateral hydronephrosis and proximal hydroureter without evident obstructing stone or mass with prominent distention of the bladder suggesting either bladder outlet obstruction or neurogenic bladder. 4. Multinodular goiter post prior left thyroidectomy with nodules measuring up to 1.9 cm in the right thyroid lobe. Cervical Spine CT 01/03/25 12:19 Impression: Severe degenerative disease, without acute fracture identified. Labs Labs: Laboratory Results - last 24 hr 01/03/25 01/03/25 01/03/25 10:36 10:37 12:04 WBC 9.2 RBC 4.30 Hgb 13.3 Hct 38.3 MCV 89.1 MCH 30.9 MCHC 34.7 RDW 13.2 Plt Count 223 MPV 10.4 Immature Gran % (Auto) 0.3 Neut % (Auto) 61.7 Lymph % (Auto) 25.1 [place] % (Auto) 10.4 H Eos % (Auto) 1.7 Baso % (Auto) 0.8 Lymph # (Auto) 2.31 [place] # (Auto) 1.0 H Eos # (Auto) 0.2 Baso # (Auto) 0.1 Abs Immat Gran (auto) 0.03 Absolute Neuts (auto) 5.7 Absolute Nucleated RBC 0.000 Nucleated RBC % 0.0 PT 12.4 INR 0.9 APTT 22.4 Sodium 141 Potassium 3.2 L Chloride 107 Carbon Dioxide 23 Anion Gap 11 BUN 13 D Creatinine 0.91 Estim Creat Clear Calc 35 Estimated GFR 58 L Glucose 112 H Calcium 9.1 Magnesium 1.3 L Total Bilirubin 1.2 AST 23 ALT 17 Alkaline Phosphatase 55 Total Protein 7.0 Albumin 4.3 Urine Color Yellow Urine Appearance Clear Urine pH 7.5 Ur Specific [place] 1.009 Urine Protein Negative Urine Glucose (UA) Negative Urine Ketones Negative Ur Blood (Man) Negative Urine Nitrate Negative Urine Bilirubin Negative Urine Urobilinogen 0.2 Leukocyte Esterase Rfl Negative 01/04/25 04:53 WBC RBC Hgb Hct MCV MCH MCHC RDW Plt Count MPV Immature Gran % (Auto) Neut % (Auto) Lymph % (Auto) [place] % (Auto) Eos % (Auto) Baso % (Auto) Lymph # (Auto) [place] # (Auto) Eos # (Auto) Baso # (Auto) Abs Immat Gran (auto) Absolute Neuts (auto) Absolute Nucleated RBC Nucleated RBC % PT INR APTT Sodium 139 Potassium 3.5 Chloride 105 Carbon Dioxide 23 Anion Gap 11 BUN 11 Creatinine 0.71 Estim Creat Clear Calc 44 Estimated GFR > 60 Glucose 139 H Calcium 9.3 Magnesium 1.9 Total Bilirubin AST ALT Alkaline Phosphatase Total Protein Albumin Urine Color Urine Appearance Urine pH Ur Specific [place] Urine Protein Urine Glucose (UA) Urine Ketones Ur Blood (Man) Urine Nitrate Urine Bilirubin Urine Urobilinogen Leukocyte Esterase Rfl Quality VTE Prophylaxis VTE prophylaxis: mechanical ordered
[2025-01-04 08:00] VITALS: BP 149/58; PULSE 100; PULSE 81; RESP 18; TEMP 36.2; O2SAT 97
[2025-01-04 09:22] VITALS: PULSE 78
[2025-01-04] MEDS: hydrALAZINE HCL 50 MG TABLET PO ×2 (09:22→13:07)
[2025-01-04] MEDS: amLODIPine BESYLATE 5 MG TABLET PO (09:22)
[2025-01-04] MEDS: LOSARTAN POTASSIUM 100 MG TABLET PO (09:22)
[2025-01-04] MEDS: ATORVASTATIN 40 MG TABLET 80 MG PO (09:22)
[2025-01-04] MEDS: carvediloL 3.125 MG TABLET PO (09:22)
[2025-01-04] MEDS: cloNIDine HCL 0.2 MG TABLET PO (09:22)
[2025-01-04] MEDS: ASPIRIN 81 MG ENTERIC TABLET PO (09:23)
[2025-01-04 12:00] VITALS: BP 134/58; PULSE 54; PULSE 85; RESP 16; TEMP 36.3; O2SAT 97
[2025-01-04] MEDS: KETOROLAC 15 MG/ML VIAL (*BKC) IV PUSH (13:07)
--- NOTE | 2025-01-04 14:22 | PM.DS ---
DS: Admitting Diagnosis Discharge Date 01/04/25 Admitting Diagnosis Rib fractures DS: Discharge Diagnosis Discharge Diagnosis (1) Ribs, multiple fractures: Qualifiers: Encounter type: initial encounter Fracture type: closed Laterality: right Qualified Code(s): S22.41XA - Multiple fractures of ribs, right side, initial encounter for closed fracture Code(s): S22.49XA - Multiple fractures of ribs, unspecified side, initial encounter for closed fracture Status: Acute (2) Hypothyroid: Qualifiers: Hypothyroidism type: acquired Qualified Code(s): E03.9 - Hypothyroidism, unspecified Code(s): E03.9 - Hypothyroidism, unspecified Status: Chronic (3) Hypertension: Qualifiers: Hypertension type: primary hypertension Qualified Code(s): I10 - Essential (primary) hypertension Code(s): I10 - Essential (primary) hypertension Status: Chronic DS: Summary Hospital Course Reason for hospitalization: Back/flank pain Hospital Course: 89 y/o F with PMH of CVA (residual mild right facial droop, short-term memory impairment, right hemianopsia), skin cancer, kidney stones, carotid stenosis bilateral, hypothyroidism, hyperlipidemia and hypertension presents here with back/flank pain. The patient presents here from home on 01/03 for further evaluation of right lower back pain/flank pain. She reports onset after a fall on Tuesday, 12/31. She reports she got up in the middle of the night to use the restroom when she tripped and fell into a dresser. She is unsure what she landed on. She denies loss of consciousness or head strike. Since the fall she has been ambulatory, however she has had increasing difficulty getting around and has now been unable to get up due to the pain. She reports associated shortness of breath with exertion or with conversation. She denies neck pain, weakness/numbness in her extremities, or hemoptysis. She is on clopidogrel due to history of CVA, no further anticoagulation or anti-platelet therapy. Initial VS at presentation: 98? F, HR 69, RR 22, 172/59, and 100% on RA. ED workup showed: No leukocytosis, no anemia, normal coags, potassium 3.2, creatinine 0.91 and GFR 58, glucose 112, magnesium 1.3, and UA unremarkable. Head CT showed no acute fracture or acute intracranial process, chronic infarct involving the left posterior cerebral artery vascular distribution additional small old lacunar infarct involving the right caudate nucleus. C-spine CT showed severe degenerative disease without acute fracture identified. CT w/con of the chest/abdomen/pelvis showed multiple mildly displaced fractures of the posterior right 10th and 11th ribs, very small right pleural effusion no pneumothorax, mild bilateral hydronephrosis and proximal hydroureter without evidence of obstructing stone or mass with prominent distention of the bladder suggesting either bladder outlet obstruction or neurogenic bladder, multinodular goiter post prior left thyroidectomy with nodules measuring up to 1.9 cm of the right thyroid lobe. Cervical spine CT showed severe degenerative disease without acute fracture identified. Chest/abdomen/pelvis CT showed multiple mildly displaced fractures of the posterior right 10th and 11th ribs, very small right pleural effusion, no pneumothorax, and mild bilateral hydronephrosis and proximal hydroureter without evidence of obstructing stone or mass with prominent distention of bladder suggesting either bladder outlet obstruction or neurogenic bladder. Postvoid bladder scan was ordered and was within normal limits. Patient was able to ambulate to and from the bathroom with minimal difficulty, however PT/OT was consulted and they recommended home with home health services. Patient is otherwise hemodynamically stable and feels comfortable being discharged at this time. On exam, no abdominal distension, lung sounds are clear. Patient otherwise denies any chest pain, shortness of breath, abdominal pain, nausea/vomiting at this time. She does have some right lower rib pain, she will be discharged with the incentive spirometer sent home with her but otherwise is hemodynamically stable with appropriate follow-up in the outpatient setting with her PCP. Status at Discharge Functional status at discharge: uses cane/walker Overall status at discharge: patient is progressing back to baseline Time Spent with Patient Time attestation: Total time spent providing and/or coordinating discharge services: 35 Exam Narrative: pain to right posterior ribs. irregular, +murmur. Const: Other: Mild discomfort noted with movement. , female, elderly, nontoxic appearance. Cardio: Other: + murmur GI: Other: Abdomen soft, nondistended, nontender. Normoactive bowel sounds in all quadrants. Neuro: Other: alert, short term memory impairment noted. Psych: Other: Fair insight and judgment, very pleasant DS: Data Data Completed and Pending Labs on day of discharge: Labs from last 24 hours 01/04/25 04:53 Sodium 139 Potassium 3.5 Chloride 105 Carbon Dioxide 23 Anion Gap 11 BUN 11 Creatinine 0.71 Estim Creat Clear Calc 44 Estimated GFR > 60 Glucose 139 H Calcium 9.3 Magnesium 1.9 Discharge Plan Discharge Attending physician on discharge: Rene Sykes Consulting providers: Jf Monson Discharging Clinician: Jf Monson Anticipated Discharge Date/Time: 01/04/25 14:20 Patient Disposition: Home with Home Health Service Activity: as tolerated Diet: as tolerated Discharge Instructions: Per Care Coordination, patient to discharge with [facility] ([phone]) for PT/ OT and residential. Start of care week of January 06, 2025. Agency will all to arrange the initial visit. Discharge disposition: Stable Take medications as prescribed Monitor blood pressures Take caution while standing, rising, or moving Change positions slowly taking a break between each position change If you standing feel dizzy sit back down and take a break Encouraged to continue with yearly vaccinations Return to the emergency department if he developed sudden shortness of breath, chest pain, nausea, vomiting, upset stomach or intractable diarrhea Return to the emergency department if you develop fever greater than 101.5 Follow-up with the primary care physician within 1-2 weeks Thank you for choosing [facility] for your healthcare needs Patient Instructions: Antibiotic Form Patient Language: Welsh Stand Alone Forms: General Discharge Information Follow-up/Referrals: Tommy,MD Octaviano [Primary Care Provider] - Discharge Medications: New cyclobenzaprine 5 mg tablet 5 mg PO HS Qty: 7 0RF Continued cephalexin 500 mg capsule 500 mg PO Q8H 7 Days Qty: 21 0RF atorvastatin 80 mg tablet 80 mg PO DAILY carvedilol 3.125 mg tablet 3.125 mg PO BID clonidine HCl 0.2 mg tablet 0.2 mg PO BID hydralazine 50 mg tablet 50 mg PO TID aspirin 81 mg Tablet,Delayed Release (Dr/Ec) 81 mg PO DAILY amitriptyline 25 mg tablet 25 mg PO HS amlodipine 5 mg Tablet 5 mg PO BID levothyroxine 50 mcg Tablet 50 mcg PO QAM losartan 100 mg Tablet 100 mg PO QAM Date of admission: 01/03/25 13:04 Primary Care Provider: TommyOctaviano Admitting Provider: French Junior Attending physician on admission: French Junior Condition: Stable Quality VTE Prophylaxis VTE prophylaxis: mechanical ordered
== END 2025-01-04 16:12 | disposition home health service (06) ==
LOC: ANHED 10:42 → ANH2MED 15:06 → ANH3MEDSUR 01-07 07:36
PROVIDERS: Student in an Organized Health Care Education/Training Program; Admitting Provider Family Medicine; Emergency Provider Physician Assistant; PCP Family Medicine; Visit Provider Internal Medicine
DX: S22.41XA Multiple fractures of ribs, right side, initial encounter for closed fracture (principal); W01.190A Fall on same level from slipping, tripping and stumbling with subsequent striking against furniture, initial encounter; R33.9 Retention of urine, unspecified; N13.30 Unspecified hydronephrosis; I65.23 Occlusion and stenosis of bilateral carotid arteries; E83.42 Hypomagnesemia; E87.6 Hypokalemia; E89.0 Postprocedural hypothyroidism; I10 Essential (primary) hypertension; I69.392 Facial weakness following cerebral infarction; I69.398 Other sequelae of cerebral infarction; H53.47 Heteronymous bilateral field defects; I69.311 Memory deficit following cerebral infarction; E78.5 Hyperlipidemia, unspecified; K21.9 Gastro-esophageal reflux disease without esophagitis; Z66 Do not resuscitate; Z87.891 Personal history of nicotine dependence; Z79.899 Other long term (current) drug therapy; Z96.1 Presence of intraocular lens; Z98.42 Cataract extraction status, left eye; Z98.41 Cataract extraction status, right eye; Z85.828 Personal history of other malignant neoplasm of skin; Z87.442 Personal history of urinary calculi
CPT/HCPCS: 36415; 70450; 71260; 72125; 74177; 80048; 80053; 81003; 83735; 85025; 85610; 85730; 96365; 96366; 96375; 96376; 97161; 97165; 99285; A9270; G0378; J1885; J2270; J3475; Q9967